=== PATIENT | female | born 1955 | race Caucasian/White ===

== ENCOUNTER 2016-12-02 12:41 | Inpatient (IN) | payer MEDICAID, OTHER ==
[~2016-12-02] VITALS: Ht 144.8 cm; Wt 98.0 kg
[~2016-12-02 12:41] MED LIST: ARIP15TA3 PO; CLON1 PO; GLIP5TAB3 PO; LEVO100T14 PO; METF500T PO; OMEP20 PO; OXCA150T3 PO; PIOG15TA13 PO; PRAV20TA PO; QUET300T2 PO; QUET50TA PO
[2016-12-02] MEDS ORDERED: GABA-529 PO (13:16)
[2016-12-02] MEDS ORDERED: LORA1TAB3 PO (13:16)
[2016-12-02] MEDS ORDERED: SITA50 PO (13:16)
[2016-12-02 13:20] LABS: BASOPHILS % (AUTO) 0.4 % (0.0-2.0); EOSINOPHILS % (AUTO) 0.8 % (1.0-6.0); HEMATOCRIT 36.9 % (36-46); HEMOGLOBIN 12.1 g/dL (12.0-16.0); LYMPHOCYTES # (AUTO) 2.4 K/uL (1.0-4.8); LYMPHOCYTES % (AUTO) 20.6 % (22.0-44.0); MEAN CORPUSCULAR HEMOGLOBIN 30.5 pg (26.0-34.0); MEAN CORPUSCULAR HGB CONC 32.7 G/dL (31.0-37.0); MEAN CORPUSCULAR VOLUME 93 fL (80-100); MONOCYTES # (AUTO) 0.7 K/uL (0.1-1.0); MONOCYTES % (AUTO) 6.1 % (2.0-9.0); NEUTROPHILS # (AUTO) 8.4 K/uL (1.8-7.7); NEUTROPHILS % (AUTO) 72.1 % (40.0-70.0); PLATELET COUNT (AUTO) 355 K/uL (150-450); RED BLOOD CELL COUNT(AUTO) 3.96 MIL/uL (4.00-5.20); RED CELL DISTRIBUTION WIDTH 14.6 % (11.5-14.5); WHITE BLOOD COUNT (AUTO) 11.7 K/uL (4.5-11.0)
[2016-12-02 13:38] LABS: ALANINE AMINOTRANSFERASE 51 U/L (12-78); ALBUMIN 4.2 g/dL (3.4-5.0); ANION GAP 13 mmol/L (8-16); ASPARTATE AMINOTRANSFERASE 24 U/L (15-37); BILIRUBIN,TOTAL 0.4 mg/dL (0.1-1.0); CARBON DIOXIDE 26 mmol/L (22-29); CHLORIDE 94 mmol/L (98-107); CREATININE 1.31 mg/dL (0.60-1.30); GLOMERULAR FILTR. RATE CALC 41 mL/min (>60); POTASSIUM 4.4 mmol/L (3.5-5.1); SODIUM SERUM 133 mmol/L (136-145); TOTAL PROTEIN, SERUM 8.5 g/dL (6.4-8.2); UREA NITROGEN, BLOOD 17 mg/dL (7-18)
[2016-12-02] MEDS ORDERED: INSULIN REGULAR, HUMAN 100 UNITS/ML SQ ONE (13:45)
[2016-12-02] MEDS ORDERED: SODIUM CHLORIDE 0.9% 1,000 ML IV ONE (13:45)
[2016-12-02] MEDS ORDERED: QUET25TA PO (13:46)
[2016-12-02 15:46] LABS: GLUCOSE COMMENT 1 Doctor Notified; GLUCOSE,POINT OF CARE 466 MG/DL (70-110)
[2016-12-02 17:22] LABS: GLUCOSE,POINT OF CARE 340 MG/DL (70-110)
[2016-12-02 19:25] VITALS: BP 128/80
[2016-12-02] MEDS ORDERED: GLUCAGON,HUMAN RECOMBINANT 1 MG VIAL IM PRN (19:45)
[2016-12-02 20:07] LABS: GLUCOSE,POINT OF CARE 214 MG/DL (70-110)
[2016-12-02] MEDS ORDERED: PNEUMOCOCCAL VACCINE POLYVALENT 0.5 ML VIAL [PPSV23] IM ONE (20:15)
[2016-12-02] MEDS: INSULIN ASPART 100 UNITS/ML SQ PRN (21:22)
[2016-12-02] MEDS: BENZOCAINE 10% 7 GM GEL TP PRN (22:38)
[2016-12-02 22:51] LABS: GLUCOSE COMMENT 1 Received Meds; GLUCOSE,POINT OF CARE 324 MG/DL (70-110)
[2016-12-03 00:14] VITALS: BP 145/93
[2016-12-03] MEDS: LORazepam 2 MG TABLET PO PRN ×2 (00:14→16:32)
[2016-12-03 06:16] LABS: GLUCOSE,POINT OF CARE 340 MG/DL (70-110)
[2016-12-03] MEDS: LEVOTHYROXINE SODIUM 100 MCG TABLET PO SCH (06:48)
[2016-12-03] MEDS: GlipiZIDE 5 MG TABLET PO SCH ×2 (06:48→19:37)
[2016-12-03] MEDS: INSULIN ASPART 100 UNITS/ML SQ PRN ×3 (06:50→21:13)
[2016-12-03] MEDS: OMEPRAZOLE 20 MG CAPSULE PO SCH (08:21)
[2016-12-03] MEDS: IBUPROFEN 400 MG TABLET PO PRN ×3 (08:21→23:47)
[2016-12-03] MEDS: BENZOCAINE 10% 7 GM GEL TP PRN ×2 (08:24→19:36)
[2016-12-03 08:29] VITALS: BP 121/73
[2016-12-03 11:27] LABS: GLUCOSE,POINT OF CARE 298 MG/DL (70-110)
[2016-12-03 16:00] VITALS: BP 158/105
[2016-12-03] MEDS ORDERED: AmLODIPine BESYLATE 5 MG TABLET PO ONE (16:30)
[2016-12-03 16:31] LABS: GLUCOSE COMMENT 1 Doctor Notified; GLUCOSE,POINT OF CARE 428 MG/DL (70-110)
[2016-12-03] MEDS ORDERED: INSULIN ASPART 100 UNITS/ML SQ ONE ×2 (16:45→18:45)
[2016-12-03] MEDS ORDERED: ACETAMINOPHEN 325 MG TABLET PO PRN (16:45)
[2016-12-03] MEDS: MetFORMIN HCL 500 MG TABLET PO SCH (17:04)
[2016-12-03 17:44] VITALS: BP 142/96
[2016-12-03 18:06] LABS: GLUCOSE COMMENT 1 Repeated; GLUCOSE,POINT OF CARE 410 MG/DL (70-110)
[2016-12-03] MEDS ORDERED: QUEtiapine FUMARATE 50 MG ER TABLET PO ONE (19:00)
[2016-12-03 21:01] LABS: GLUCOSE,POINT OF CARE 263 MG/DL (70-110)
[2016-12-03 23:43] VITALS: BP 121/78
[2016-12-03] MEDS: ZOLPIDEM TARTRATE 10 MG TABLET PO PRN (23:47)
[2016-12-04] MEDS: BENZOCAINE 10% 7 GM GEL TP PRN ×3 (01:52→16:38)
[2016-12-04 06:08] VITALS: BP 108/64
[2016-12-04] MEDS: ACETAMINOPHEN 325 MG TABLET PO PRN (06:11)
[2016-12-04] MEDS: INSULIN ASPART 100 UNITS/ML SQ PRN ×4 (06:38→21:32)
[2016-12-04] MEDS: MetFORMIN HCL 500 MG TABLET PO SCH ×2 (06:38→16:29)
[2016-12-04] MEDS: GlipiZIDE 5 MG TABLET PO SCH ×2 (06:38→16:30)
[2016-12-04] MEDS: LEVOTHYROXINE SODIUM 100 MCG TABLET PO SCH (06:39)
[2016-12-04 08:07] VITALS: BP 127/60
[2016-12-04] MEDS: OMEPRAZOLE 20 MG CAPSULE PO SCH (08:18)
[2016-12-04] MEDS: AmLODIPine BESYLATE 5 MG TABLET PO SCH (08:18)
[2016-12-04 08:59] LABS: HEMOGLOBIN A1C 10.2 % (4.5-6.2)
[2016-12-04] MEDS ORDERED: QUEtiapine FUMARATE 300 MG ER TABLET PO ONE (09:00)
[2016-12-04 09:34] LABS: THYROID STIMULATING HORMONE 4.87 uIU/mL (0.36-3.74)
[2016-12-04 10:37] VITALS: BP 116/63
[2016-12-04] MEDS: IBUPROFEN 400 MG TABLET PO PRN ×2 (10:37→18:44)
[2016-12-04 11:06] LABS: GLUCOSE,POINT OF CARE 323 MG/DL (70-110)
[2016-12-04 11:06] LABS: GLUCOSE COMMENT 1 Received Meds; GLUCOSE,POINT OF CARE 365 MG/DL (70-110)
[2016-12-04 16:16] LABS: GLUCOSE,POINT OF CARE 271 MG/DL (70-110)
[2016-12-04 16:17] VITALS: BP 124/61
[2016-12-04 20:11] LABS: GLUCOSE,POINT OF CARE 335 MG/DL (70-110)
[2016-12-04] MEDS: LORazepam 2 MG TABLET PO PRN (20:50)
[2016-12-05 00:06] VITALS: BP 115/59
[2016-12-05] MEDS: BENZOCAINE 10% 7 GM GEL TP PRN ×3 (00:08→19:14)
[2016-12-05] MEDS: ZOLPIDEM TARTRATE 10 MG TABLET PO PRN (00:09)
[2016-12-05] MEDS: IBUPROFEN 400 MG TABLET PO PRN ×2 (01:54→14:16)
[2016-12-05 01:55] VITALS: BP 117/72
[2016-12-05] MEDS: LORazepam 2 MG TABLET PO PRN ×3 (03:12→20:47)
[2016-12-05 06:10] VITALS: BP 115/68
[2016-12-05] MEDS: LEVOTHYROXINE SODIUM 100 MCG TABLET PO SCH (06:13)
[2016-12-05 06:15] LABS: GLUCOSE,POINT OF CARE 244 MG/DL (70-110)
[2016-12-05] MEDS: GlipiZIDE 5 MG TABLET PO SCH ×2 (06:54→16:34)
[2016-12-05] MEDS: INSULIN ASPART 100 UNITS/ML SQ PRN ×4 (06:58→20:48)
[2016-12-05] MEDS: MetFORMIN HCL 500 MG TABLET PO SCH ×2 (06:59→16:34)
[2016-12-05 08:11] VITALS: BP 119/79
[2016-12-05] MEDS: ACETAMINOPHEN 325 MG TABLET PO PRN (08:22)
[2016-12-05] MEDS: AmLODIPine BESYLATE 5 MG TABLET PO SCH (08:23)
[2016-12-05] MEDS: OMEPRAZOLE 20 MG CAPSULE PO SCH (08:24)
[2016-12-05] MEDS ORDERED: QUEtiapine FUMARATE 300 MG ER TABLET PO SCH (09:00)
[2016-12-05] MEDS ORDERED: QUEtiapine FUMARATE 200 MG ER TABLET PO SCH (09:00)
[2016-12-05 11:26] LABS: GLUCOSE,POINT OF CARE 225 MG/DL (70-110)
[2016-12-05 14:16] VITALS: BP 122/60
[2016-12-05 16:34] VITALS: BP 119/73
[2016-12-05 20:21] LABS: GLUCOSE,POINT OF CARE 254 MG/DL (70-110)
[2016-12-05 20:21] LABS: GLUCOSE,POINT OF CARE 208 MG/DL (70-110)
[2016-12-05] MEDS: HALOPERIDOL 5 MG TABLET PO PRN (20:47)
[2016-12-06] VITALS (7 sets, daily range): BP systolic 118–128; BP diastolic 62–78
[2016-12-06] MEDS: IBUPROFEN 400 MG TABLET PO PRN ×3 (00:51→20:42)
[2016-12-06] MEDS: ACETAMINOPHEN 325 MG TABLET PO PRN (05:02)
[2016-12-06 06:11] LABS: GLUCOSE,POINT OF CARE 210 MG/DL (70-110)
[2016-12-06] MEDS: LEVOTHYROXINE SODIUM 100 MCG TABLET PO SCH (06:30)
[2016-12-06] MEDS: MetFORMIN HCL 500 MG TABLET PO SCH ×2 (06:30→16:21)
[2016-12-06] MEDS: GlipiZIDE 5 MG TABLET PO SCH ×2 (06:30→16:21)
[2016-12-06] MEDS: INSULIN ASPART 100 UNITS/ML SQ PRN ×4 (06:48→20:41)
[2016-12-06] MEDS: OMEPRAZOLE 20 MG CAPSULE PO SCH (08:06)
[2016-12-06] MEDS: AmLODIPine BESYLATE 5 MG TABLET PO SCH (08:07)
[2016-12-06] MEDS: LORazepam 2 MG TABLET PO PRN ×2 (08:07→13:48)
[2016-12-06] MEDS ORDERED: QUEtiapine FUMARATE 300 MG ER TABLET PO SCH ×2 (09:00→21:00)
[2016-12-06 11:11] LABS: GLUCOSE,POINT OF CARE 167 MG/DL (70-110)
[2016-12-06] MEDS: BENZOCAINE 10% 7 GM GEL TP PRN ×2 (13:04→21:20)
[2016-12-06] MEDS ORDERED: BENZOCAINE 10% 7 GM GEL TP PRN (14:15)
[2016-12-06] MEDS: ACETAMINOPHEN 500 MG TABLET PO PRN (14:49)
[2016-12-06] MEDS: HALOPERIDOL 5 MG TABLET PO PRN (16:21)
[2016-12-06 19:11] LABS: GLUCOSE COMMENT 1 Received Meds; GLUCOSE,POINT OF CARE 248 MG/DL (70-110)
[2016-12-06 21:30] LABS: GLUCOSE COMMENT 1 Received Meds; GLUCOSE,POINT OF CARE 196 MG/DL (70-110)
[2016-12-07 00:13] VITALS: BP 112/63
[2016-12-07 06:10] LABS: GLUCOSE,POINT OF CARE 314 MG/DL (70-110)
[2016-12-07] MEDS: LEVOTHYROXINE SODIUM 100 MCG TABLET PO SCH (06:50)
[2016-12-07] MEDS: MetFORMIN HCL 500 MG TABLET PO SCH ×2 (06:50→17:10)
[2016-12-07] MEDS: GlipiZIDE 5 MG TABLET PO SCH ×2 (06:50→16:34)
[2016-12-07] MEDS: INSULIN ASPART 100 UNITS/ML SQ PRN ×4 (06:52→20:51)
[2016-12-07] MEDS: OMEPRAZOLE 20 MG CAPSULE PO SCH (08:25)
[2016-12-07] MEDS: AmLODIPine BESYLATE 5 MG TABLET PO SCH (08:25)
[2016-12-07] MEDS: LORazepam 2 MG TABLET PO PRN ×2 (08:36→17:37)
[2016-12-07 08:37] VITALS: BP 124/64
[2016-12-07] MEDS: ACETAMINOPHEN 500 MG TABLET PO PRN (08:37)
[2016-12-07] MEDS: HALOPERIDOL 5 MG TABLET PO PRN ×2 (09:04→16:46)
[2016-12-07] MEDS: DOCOSANOL 10% 2 GM CREAM TP PRN (09:32)
[2016-12-07 11:16] VITALS: BP 120/66
[2016-12-07] MEDS: IBUPROFEN 400 MG TABLET PO PRN (11:16)
[2016-12-07 11:31] LABS: GLUCOSE,POINT OF CARE 189 MG/DL (70-110)
[2016-12-07 16:14] VITALS: BP 112/67
[2016-12-07] MEDS: DIVALPROEX SODIUM 250 MG ER TABLET PO SCH (16:37)
[2016-12-07 16:51] LABS: GLUCOSE,POINT OF CARE 265 MG/DL (70-110)
[2016-12-07] MEDS: BENZOCAINE 10% 7 GM GEL TP PRN (19:43)
[2016-12-07] MEDS: QUEtiapine FUMARATE 200 MG ER TABLET PO SCH (20:08)
[2016-12-07 22:06] LABS: GLUCOSE,POINT OF CARE 218 MG/DL (70-110)
[2016-12-08 06:20] LABS: GLUCOSE,POINT OF CARE 316 MG/DL (70-110)
[2016-12-08] MEDS: GlipiZIDE 5 MG TABLET PO SCH ×2 (06:30→16:25)
[2016-12-08] MEDS: LEVOTHYROXINE SODIUM 100 MCG TABLET PO SCH (06:30)
[2016-12-08] MEDS: MetFORMIN HCL 500 MG TABLET PO SCH ×2 (06:31→16:57)
[2016-12-08 06:48] VITALS: BP 129/78
[2016-12-08] MEDS: HALOPERIDOL 5 MG TABLET PO PRN ×3 (06:52→16:25)
[2016-12-08] MEDS: LORazepam 2 MG TABLET PO PRN ×3 (06:52→17:03)
[2016-12-08] MEDS: INSULIN ASPART 100 UNITS/ML SQ PRN ×4 (06:57→20:17)
[2016-12-08 08:42] VITALS: BP 148/84
[2016-12-08] MEDS: DIVALPROEX SODIUM 250 MG ER TABLET PO SCH ×2 (08:53→16:25)
[2016-12-08] MEDS: LORazepam 0.5 MG TABLET PO SCH ×2 (08:53→16:25)
[2016-12-08] MEDS: OMEPRAZOLE 20 MG CAPSULE PO SCH (08:53)
[2016-12-08] MEDS: AmLODIPine BESYLATE 5 MG TABLET PO SCH (08:55)
[2016-12-08] MEDS: ACETAMINOPHEN 500 MG TABLET PO PRN (09:52)
[2016-12-08 13:05] LABS: GLUCOSE,POINT OF CARE 206 MG/DL (70-110)
[2016-12-08 16:03] VITALS: BP 109/71
[2016-12-08 16:30] LABS: GLUCOSE,POINT OF CARE 297 MG/DL (70-110)
[2016-12-08 18:13] VITALS: BP 110/72
[2016-12-08] MEDS: IBUPROFEN 400 MG TABLET PO PRN (18:13)
[2016-12-08] MEDS: QUEtiapine FUMARATE 200 MG ER TABLET PO SCH (20:16)
[2016-12-08 20:21] LABS: GLUCOSE,POINT OF CARE 208 MG/DL (70-110)
[2016-12-08] MEDS: ZOLPIDEM TARTRATE 10 MG TABLET PO PRN (21:12)
[2016-12-09 06:16] LABS: GLUCOSE,POINT OF CARE 212 MG/DL (70-110)
[2016-12-09] MEDS: MetFORMIN HCL 500 MG TABLET PO SCH ×2 (06:19→16:40)
[2016-12-09] MEDS: GlipiZIDE 5 MG TABLET PO SCH ×2 (06:19→16:40)
[2016-12-09] MEDS: LEVOTHYROXINE SODIUM 100 MCG TABLET PO SCH (06:19)
[2016-12-09] MEDS: INSULIN ASPART 100 UNITS/ML SQ PRN ×4 (06:23→20:36)
[2016-12-09] MEDS: LORazepam 2 MG TABLET PO PRN ×2 (06:46→17:58)
[2016-12-09] MEDS: HALOPERIDOL 5 MG TABLET PO PRN ×2 (06:46→16:40)
[2016-12-09 07:19] VITALS: BP 135/70
[2016-12-09 08:07] VITALS: BP 129/50
[2016-12-09] MEDS: LORazepam 0.5 MG TABLET PO SCH ×2 (09:13→16:40)
[2016-12-09] MEDS: AmLODIPine BESYLATE 5 MG TABLET PO SCH (09:14)
[2016-12-09] MEDS: DIVALPROEX SODIUM 250 MG ER TABLET PO SCH ×2 (09:14→16:40)
[2016-12-09] MEDS: OMEPRAZOLE 20 MG CAPSULE PO SCH (09:14)
[2016-12-09] MEDS: ACETAMINOPHEN 500 MG TABLET PO PRN (09:16)
[2016-12-09 11:56] LABS: GLUCOSE,POINT OF CARE 162 MG/DL (70-110)
[2016-12-09 16:00] VITALS: BP 117/68
[2016-12-09 16:41] LABS: GLUCOSE,POINT OF CARE 297 MG/DL (70-110)
[2016-12-09] MEDS: DOCOSANOL 10% 2 GM CREAM TP PRN (18:00)
[2016-12-09 18:46] VITALS: BP 122/72
[2016-12-09] MEDS: IBUPROFEN 400 MG TABLET PO PRN (18:46)
[2016-12-09 20:35] LABS: GLUCOSE,POINT OF CARE 148 MG/DL (70-110)
[2016-12-09] MEDS: QUEtiapine FUMARATE 200 MG ER TABLET PO SCH (20:37)
[2016-12-09] MEDS: ZOLPIDEM TARTRATE 10 MG TABLET PO PRN (21:07)
[2016-12-10 06:21] LABS: GLUCOSE,POINT OF CARE 225 MG/DL (70-110)
[2016-12-10] MEDS: LEVOTHYROXINE SODIUM 100 MCG TABLET PO SCH (06:31)
[2016-12-10] MEDS: GlipiZIDE 5 MG TABLET PO SCH ×2 (06:31→16:38)
[2016-12-10] MEDS: MetFORMIN HCL 500 MG TABLET PO SCH ×2 (06:31→16:55)
[2016-12-10] MEDS: INSULIN ASPART 100 UNITS/ML SQ PRN ×4 (06:34→20:40)
[2016-12-10] MEDS: OMEPRAZOLE 20 MG CAPSULE PO SCH (08:24)
[2016-12-10] MEDS: LORazepam 0.5 MG TABLET PO SCH ×2 (08:24→16:38)
[2016-12-10] MEDS: DIVALPROEX SODIUM 250 MG ER TABLET PO SCH (08:24)
[2016-12-10] MEDS: AmLODIPine BESYLATE 5 MG TABLET PO SCH (08:24)
[2016-12-10 08:59] VITALS: BP 137/68
[2016-12-10 11:26] LABS: GLUCOSE,POINT OF CARE 173 MG/DL (70-110)
[2016-12-10] MEDS: ACETAMINOPHEN 500 MG TABLET PO PRN ×2 (14:07→22:13)
[2016-12-10] MEDS: DOCOSANOL 10% 2 GM CREAM TP PRN (14:08)
[2016-12-10 16:02] VITALS: BP 138/74
[2016-12-10] MEDS: BENZOCAINE 10% 7 GM GEL TP PRN (16:13)
[2016-12-10 16:21] LABS: GLUCOSE,POINT OF CARE 213 MG/DL (70-110)
[2016-12-10] MEDS: DIVALPROEX SODIUM 500 MG ER TABLET PO SCH (16:38)
[2016-12-10] MEDS: LORazepam 2 MG TABLET PO PRN ×2 (18:41→23:57)
[2016-12-10] MEDS: HALOPERIDOL 5 MG TABLET PO PRN ×2 (19:32→23:57)
[2016-12-10] MEDS: QUEtiapine FUMARATE 200 MG ER TABLET PO SCH (20:28)
[2016-12-10 20:41] LABS: GLUCOSE COMMENT 1 Received Meds; GLUCOSE,POINT OF CARE 177 MG/DL (70-110)
[2016-12-10 22:00] VITALS: BP 135/76
[2016-12-10] MEDS: IBUPROFEN 400 MG TABLET PO PRN (23:58)
[2016-12-11 00:02] VITALS: BP 128/71
[2016-12-11] MEDS: GlipiZIDE 5 MG TABLET PO SCH ×2 (06:59→17:18)
[2016-12-11] MEDS: MetFORMIN HCL 500 MG TABLET PO SCH ×2 (07:00→16:26)
[2016-12-11] MEDS: ACETAMINOPHEN 500 MG TABLET PO PRN (07:00)
[2016-12-11] MEDS: LEVOTHYROXINE SODIUM 100 MCG TABLET PO SCH (07:00)
[2016-12-11 07:01] LABS: GLUCOSE,POINT OF CARE 194 MG/DL (70-110)
[2016-12-11] MEDS: INSULIN ASPART 100 UNITS/ML SQ PRN ×3 (07:09→21:45)
[2016-12-11] MEDS: LORazepam 0.5 MG TABLET PO SCH ×2 (08:09→18:32)
[2016-12-11] MEDS: AmLODIPine BESYLATE 5 MG TABLET PO SCH (08:10)
[2016-12-11] MEDS: DIVALPROEX SODIUM 500 MG ER TABLET PO SCH ×2 (08:10→16:26)
[2016-12-11] MEDS: OMEPRAZOLE 20 MG CAPSULE PO SCH (08:10)
[2016-12-11] MEDS: HALOPERIDOL 5 MG TABLET PO PRN (08:34)
[2016-12-11] MEDS: IBUPROFEN 400 MG TABLET PO PRN (09:31)
[2016-12-11] MEDS: BENZOCAINE 10% 7 GM GEL TP PRN (09:53)
[2016-12-11 12:11] LABS: GLUCOSE,POINT OF CARE 183 MG/DL (70-110)
[2016-12-11] MEDS: QUEtiapine FUMARATE 200 MG ER TABLET PO SCH ×2 (14:17→16:27)
[2016-12-11 16:11] VITALS: BP 108/62
[2016-12-11 18:30] LABS: GLUCOSE,POINT OF CARE 222 MG/DL (70-110)
[2016-12-11 20:26] LABS: GLUCOSE,POINT OF CARE 183 MG/DL (70-110)
[2016-12-11 21:24] VITALS: BP 111/64
[2016-12-11] MEDS: ACETAMINOPHEN 325 MG TABLET PO PRN (21:24)
[2016-12-11 22:24] VITALS: BP 109/68
[2016-12-12 01:24] VITALS: BP 140/82
[2016-12-12] MEDS: ZOLPIDEM TARTRATE 10 MG TABLET PO PRN ×2 (01:25→21:02)
[2016-12-12] MEDS: IBUPROFEN 400 MG TABLET PO PRN ×3 (01:26→19:27)
[2016-12-12] MEDS: BENZOCAINE 10% 7 GM GEL TP PRN ×2 (01:55→17:55)
[2016-12-12] MEDS: LEVOTHYROXINE SODIUM 100 MCG TABLET PO SCH (05:48)
[2016-12-12] MEDS: GlipiZIDE 5 MG TABLET PO SCH ×2 (05:48→16:25)
[2016-12-12 06:15] LABS: GLUCOSE,POINT OF CARE 190 MG/DL (70-110)
[2016-12-12] MEDS: MetFORMIN HCL 500 MG TABLET PO SCH ×2 (06:15→16:58)
[2016-12-12] MEDS: INSULIN ASPART 100 UNITS/ML SQ PRN ×4 (06:41→20:10)
[2016-12-12 08:42] VITALS: BP 133/67
[2016-12-12] MEDS: QUEtiapine FUMARATE 200 MG ER TABLET PO SCH ×2 (08:59→16:30)
[2016-12-12] MEDS: AmLODIPine BESYLATE 5 MG TABLET PO SCH (08:59)
[2016-12-12] MEDS: DIVALPROEX SODIUM 500 MG ER TABLET PO SCH ×2 (08:59→16:30)
[2016-12-12] MEDS: OMEPRAZOLE 20 MG CAPSULE PO SCH (09:00)
[2016-12-12] MEDS: HALOPERIDOL 5 MG TABLET PO PRN ×2 (09:00→16:30)
[2016-12-12] MEDS: LORazepam 0.5 MG TABLET PO SCH ×2 (09:00→16:30)
[2016-12-12] MEDS: LORazepam 2 MG TABLET PO PRN ×2 (10:00→17:54)
[2016-12-12 11:33] LABS: GLUCOSE COMMENT 1 Received Meds; GLUCOSE,POINT OF CARE 157 MG/DL (70-110)
[2016-12-12 16:07] VITALS: BP 136/71
[2016-12-12 16:31] LABS: GLUCOSE,POINT OF CARE 169 MG/DL (70-110)
[2016-12-12] MEDS: DOCOSANOL 10% 2 GM CREAM TP PRN (16:59)
[2016-12-12 19:27] VITALS: BP 134/77
[2016-12-12 20:11] LABS: GLUCOSE,POINT OF CARE 232 MG/DL (70-110)
[2016-12-13] MEDS: ACETAMINOPHEN 500 MG TABLET PO PRN (01:52)
[2016-12-13 01:54] VITALS: BP 137/75
[2016-12-13] MEDS: DOCOSANOL 10% 2 GM CREAM TP PRN ×2 (02:38→10:07)
[2016-12-13] MEDS: BENZOCAINE 10% 7 GM GEL TP PRN ×3 (02:38→21:55)
[2016-12-13 06:06] LABS: GLUCOSE,POINT OF CARE 199 MG/DL (70-110)
[2016-12-13] MEDS: LEVOTHYROXINE SODIUM 100 MCG TABLET PO SCH (06:50)
[2016-12-13] MEDS: MetFORMIN HCL 500 MG TABLET PO SCH ×2 (06:50→16:59)
[2016-12-13] MEDS: GlipiZIDE 5 MG TABLET PO SCH ×2 (06:50→16:15)
[2016-12-13] MEDS: INSULIN ASPART 100 UNITS/ML SQ PRN ×4 (06:56→20:22)
[2016-12-13 08:03] VITALS: BP 136/70
[2016-12-13] MEDS: QUEtiapine FUMARATE 200 MG ER TABLET PO SCH ×2 (08:27→16:07)
[2016-12-13] MEDS: LORazepam 0.5 MG TABLET PO SCH ×2 (08:27→17:11)
[2016-12-13] MEDS: DIVALPROEX SODIUM 500 MG ER TABLET PO SCH ×2 (08:27→16:08)
[2016-12-13] MEDS: OMEPRAZOLE 20 MG CAPSULE PO SCH (08:28)
[2016-12-13] MEDS: AmLODIPine BESYLATE 5 MG TABLET PO SCH (08:28)
[2016-12-13 09:57] LABS: BASOPHILS % (AUTO) 0.5 % (0.0-2.0); EOSINOPHILS % (AUTO) 3.5 % (1.0-6.0); HEMATOCRIT 35.4 % (36-46); HEMOGLOBIN 11.4 g/dL (12.0-16.0); LYMPHOCYTES # (AUTO) 4.1 K/uL (1.0-4.8); MEAN CORPUSCULAR HGB CONC 32.2 G/dL (31.0-37.0); MEAN CORPUSCULAR VOLUME 93 fL (80-100); MONOCYTES # (AUTO) 0.5 K/uL (0.1-1.0); MONOCYTES % (AUTO) 5.7 % (2.0-9.0); NEUTROPHILS # (AUTO) 3.8 K/uL (1.8-7.7); NEUTROPHILS % (AUTO) 43.3 % (40.0-70.0); PLATELET COUNT (AUTO) 359 K/uL (150-450); RED BLOOD CELL COUNT(AUTO) 3.81 MIL/uL (4.00-5.20); RED CELL DISTRIBUTION WIDTH 14.7 % (11.5-14.5); WHITE BLOOD COUNT (AUTO) 8.8 K/uL (4.5-11.0)
[2016-12-13 10:09] LABS: ALANINE AMINOTRANSFERASE 48 U/L (12-78); ALBUMIN 3.7 g/dL (3.4-5.0); ANION GAP 15 mmol/L (8-16); ASPARTATE AMINOTRANSFERASE 24 U/L (15-37); BILIRUBIN,TOTAL 0.2 mg/dL (0.1-1.0); CARBON DIOXIDE 21 mmol/L (22-29); CHLORIDE 95 mmol/L (98-107); CREATININE 0.89 mg/dL (0.60-1.30); GLOMERULAR FILTR. RATE CALC > 60 mL/min (>60); POTASSIUM 4.1 mmol/L (3.5-5.1); SODIUM SERUM 131 mmol/L (136-145); TOTAL PROTEIN, SERUM 7.8 g/dL (6.4-8.2); UREA NITROGEN, BLOOD 20 mg/dL (7-18); VALPROIC ACID 88 mcg/mL (50-100)
[2016-12-13] MEDS: IBUPROFEN 400 MG TABLET PO PRN ×2 (10:14→18:14)
[2016-12-13] MEDS: LORazepam 2 MG TABLET PO PRN (10:14)
[2016-12-13 12:01] LABS: GLUCOSE,POINT OF CARE 268 MG/DL (70-110)
[2016-12-13 16:04] VITALS: BP 132/70
[2016-12-13 16:31] LABS: GLUCOSE,POINT OF CARE 227 MG/DL (70-110)
[2016-12-13 18:12] VITALS: BP 130/69
[2016-12-13 20:26] LABS: GLUCOSE,POINT OF CARE 203 MG/DL (70-110)
[2016-12-13] MEDS: ZOLPIDEM TARTRATE 10 MG TABLET PO PRN (22:41)
[2016-12-14] VITALS: BP 118/60
[2016-12-14] MEDS: ACETAMINOPHEN 500 MG TABLET PO PRN (00:07)
[2016-12-14 00:43] VITALS: BP 118/60
[2016-12-14] MEDS: IBUPROFEN 400 MG TABLET PO PRN (04:43)
[2016-12-14] MEDS: BENZOCAINE 10% 7 GM GEL TP PRN (04:44)
[2016-12-14 06:21] LABS: GLUCOSE,POINT OF CARE 249 MG/DL (70-110)
[2016-12-14] MEDS: LEVOTHYROXINE SODIUM 100 MCG TABLET PO SCH (06:23)
[2016-12-14] MEDS: MetFORMIN HCL 500 MG TABLET PO SCH (06:24)
[2016-12-14] MEDS: GlipiZIDE 5 MG TABLET PO SCH (06:24)
[2016-12-14] MEDS: INSULIN ASPART 100 UNITS/ML SQ PRN ×2 (06:28→12:18)
[2016-12-14 08:25] VITALS: BP 136/62
[2016-12-14] MEDS: OMEPRAZOLE 20 MG CAPSULE PO SCH (09:39)
[2016-12-14] MEDS: AmLODIPine BESYLATE 5 MG TABLET PO SCH (09:39)
[2016-12-14] MEDS: DIVALPROEX SODIUM 250 MG ER TABLET PO SCH ×2 (09:40→17:00)
[2016-12-14] MEDS: LORazepam 0.5 MG TABLET PO SCH ×2 (09:40→17:00)
[2016-12-14] MEDS: QUEtiapine FUMARATE 200 MG ER TABLET PO SCH ×2 (09:41→17:00)
[2016-12-14 11:47] LABS: GLUCOSE,POINT OF CARE 238 MG/DL (70-110)
[2016-12-15] MEDS: LEVOTHYROXINE SODIUM 100 MCG TABLET PO SCH (06:30)
[2016-12-15] MEDS: GlipiZIDE 5 MG TABLET PO SCH (06:30)
[2016-12-15] MEDS: MetFORMIN HCL 500 MG TABLET PO SCH (07:00)
[2016-12-15] MEDS: LORazepam 0.5 MG TABLET PO SCH ×2 (09:00→17:00)
[2016-12-15] MEDS: DIVALPROEX SODIUM 250 MG ER TABLET PO SCH ×2 (09:00→17:00)
[2016-12-15] MEDS: OMEPRAZOLE 20 MG CAPSULE PO SCH (09:00)
[2016-12-15] MEDS: AmLODIPine BESYLATE 5 MG TABLET PO SCH (09:00)
[2016-12-15] MEDS: QUEtiapine FUMARATE 200 MG ER TABLET PO SCH ×2 (09:00→17:00)
[2016-12-15 23:31] LABS: GLUCOSE COMMENT 1 Received Meds; GLUCOSE,POINT OF CARE 192 MG/DL (70-110)
[2016-12-15 23:31] LABS: GLUCOSE,POINT OF CARE 288 MG/DL (70-110)
[2016-12-15 23:36] LABS: GLUCOSE,POINT OF CARE 277 MG/DL (70-110)
[2016-12-15 23:36] LABS: GLUCOSE,POINT OF CARE 289 MG/DL (70-110)
[2016-12-15 23:36] LABS: GLUCOSE,POINT OF CARE 214 MG/DL (70-110)
[2016-12-16] MEDS: ACETAMINOPHEN 500 MG TABLET PO PRN ×2 (00:49→09:37)
[2016-12-16 01:50] VITALS: BP 138/98
[2016-12-16 06:26] LABS: GLUCOSE,POINT OF CARE 246 MG/DL (70-110)
[2016-12-16] MEDS: MetFORMIN HCL 500 MG TABLET PO SCH ×2 (06:27→16:54)
[2016-12-16] MEDS: GlipiZIDE 5 MG TABLET PO SCH ×2 (06:28→16:25)
[2016-12-16] MEDS: LEVOTHYROXINE SODIUM 100 MCG TABLET PO SCH (06:28)
[2016-12-16] MEDS: INSULIN ASPART 100 UNITS/ML SQ PRN ×4 (06:33→20:14)
[2016-12-16] MEDS: IBUPROFEN 400 MG TABLET PO PRN ×2 (06:36→16:25)
[2016-12-16 09:00] VITALS: BP 147/79
[2016-12-16] MEDS: AmLODIPine BESYLATE 5 MG TABLET PO SCH (09:24)
[2016-12-16] MEDS: LORazepam 0.5 MG TABLET PO SCH ×2 (09:24→17:25)
[2016-12-16] MEDS: OMEPRAZOLE 20 MG CAPSULE PO SCH (09:24)
[2016-12-16] MEDS: DIVALPROEX SODIUM 250 MG ER TABLET PO SCH ×2 (09:24→16:24)
[2016-12-16] MEDS: QUEtiapine FUMARATE 200 MG ER TABLET PO SCH ×2 (09:24→16:24)
[2016-12-16 11:46] LABS: GLUCOSE,POINT OF CARE 224 MG/DL (70-110)
[2016-12-16] MEDS: DOCOSANOL 10% 2 GM CREAM TP PRN (12:58)
[2016-12-16] MEDS: BENZOCAINE 10% 7 GM GEL TP PRN ×2 (12:58→19:29)
[2016-12-16 16:09] VITALS: BP 130/89
[2016-12-16 16:51] LABS: GLUCOSE,POINT OF CARE 303 MG/DL (70-110)
[2016-12-16 20:17] LABS: GLUCOSE,POINT OF CARE 235 MG/DL (70-110)
[2016-12-16] MEDS: ZOLPIDEM TARTRATE 10 MG TABLET PO PRN (21:22)
[2016-12-17] MEDS: IBUPROFEN 400 MG TABLET PO PRN ×2 (00:16→16:35)
[2016-12-17 00:18] VITALS: BP 139/85
[2016-12-17] MEDS: ACETAMINOPHEN 500 MG TABLET PO PRN (03:50)
[2016-12-17 06:01] LABS: GLUCOSE,POINT OF CARE 250 MG/DL (70-110)
[2016-12-17] MEDS: MetFORMIN HCL 500 MG TABLET PO SCH ×3 (06:04→16:34)
[2016-12-17] MEDS: LEVOTHYROXINE SODIUM 100 MCG TABLET PO SCH (06:04)
[2016-12-17] MEDS: GlipiZIDE 5 MG TABLET PO SCH ×2 (06:04→16:09)
[2016-12-17] MEDS: INSULIN ASPART 100 UNITS/ML SQ PRN ×3 (06:13→16:20)
[2016-12-17 08:30] VITALS: BP 128/74
[2016-12-17] MEDS: DIVALPROEX SODIUM 250 MG ER TABLET PO SCH ×2 (08:59→16:08)
[2016-12-17] MEDS: LORazepam 0.5 MG TABLET PO SCH ×2 (09:00→17:00)
[2016-12-17] MEDS: QUEtiapine FUMARATE 200 MG ER TABLET PO SCH ×2 (09:00→16:09)
[2016-12-17] MEDS: OMEPRAZOLE 20 MG CAPSULE PO SCH (09:00)
[2016-12-17] MEDS: AmLODIPine BESYLATE 5 MG TABLET PO SCH (09:01)
[2016-12-17] MEDS: BENZOCAINE 10% 7 GM GEL TP PRN ×2 (10:54→17:25)
[2016-12-17 11:16] LABS: GLUCOSE COMMENT 1 Received Meds; GLUCOSE,POINT OF CARE 219 MG/DL (70-110)
[2016-12-17 16:00] VITALS: BP 138/82
[2016-12-17 16:31] LABS: GLUCOSE,POINT OF CARE 322 MG/DL (70-110)
[2016-12-18] MEDS: IBUPROFEN 400 MG TABLET PO PRN (00:38)
[2016-12-18] MEDS: BENZOCAINE 10% 7 GM GEL TP PRN (00:38)
[2016-12-18] MEDS: DOCOSANOL 10% 2 GM CREAM TP PRN (00:39)
[2016-12-18 05:50] VITALS: BP 150/70
[2016-12-18 05:51] LABS: GLUCOSE,POINT OF CARE 233 MG/DL (70-110)
[2016-12-18] MEDS: ACETAMINOPHEN 500 MG TABLET PO PRN (05:54)
[2016-12-18] MEDS: INSULIN ASPART 100 UNITS/ML SQ PRN ×4 (06:06→21:08)
[2016-12-18] MEDS: LEVOTHYROXINE SODIUM 100 MCG TABLET PO SCH (06:15)
[2016-12-18] MEDS: MetFORMIN HCL 500 MG TABLET PO SCH ×2 (06:15→16:51)
[2016-12-18] MEDS: GlipiZIDE 5 MG TABLET PO SCH ×2 (06:15→16:52)
[2016-12-18] MEDS: LORazepam 0.5 MG TABLET PO SCH ×2 (08:39→16:52)
[2016-12-18] MEDS: OMEPRAZOLE 20 MG CAPSULE PO SCH (08:39)
[2016-12-18] MEDS: DIVALPROEX SODIUM 250 MG ER TABLET PO SCH ×2 (08:39→16:52)
[2016-12-18] MEDS: QUEtiapine FUMARATE 200 MG ER TABLET PO SCH ×2 (08:39→16:51)
[2016-12-18] MEDS: AmLODIPine BESYLATE 5 MG TABLET PO SCH (08:39)
[2016-12-18 09:04] VITALS: BP 142/90
[2016-12-18 11:46] LABS: GLUCOSE,POINT OF CARE 328 MG/DL (70-110)
[2016-12-18 16:11] VITALS: BP 139/74
[2016-12-18 17:41] LABS: GLUCOSE COMMENT 1 Received Meds; GLUCOSE,POINT OF CARE 258 MG/DL (70-110)
[2016-12-18] MEDS: ZOLPIDEM TARTRATE 10 MG TABLET PO PRN (20:58)
[2016-12-18 21:31] LABS: GLUCOSE COMMENT 1 Received Meds; GLUCOSE,POINT OF CARE 221 MG/DL (70-110)
[2016-12-19] MEDS: BENZOCAINE 10% 7 GM GEL TP PRN (01:10)
[2016-12-19 06:09] VITALS: BP 135/60
[2016-12-19 06:25] LABS: GLUCOSE COMMENT 1 Received Meds; GLUCOSE,POINT OF CARE 240 MG/DL (70-110)
[2016-12-19] MEDS: MetFORMIN HCL 500 MG TABLET PO SCH (06:28)
[2016-12-19] MEDS: LEVOTHYROXINE SODIUM 100 MCG TABLET PO SCH (06:28)
[2016-12-19] MEDS: GlipiZIDE 5 MG TABLET PO SCH (06:28)
[2016-12-19] MEDS: IBUPROFEN 400 MG TABLET PO PRN (06:28)
[2016-12-19] MEDS: INSULIN ASPART 100 UNITS/ML SQ PRN ×2 (06:40→11:41)
[2016-12-19] MEDS: QUEtiapine FUMARATE 200 MG ER TABLET PO SCH (08:25)
[2016-12-19] MEDS: OMEPRAZOLE 20 MG CAPSULE PO SCH (08:26)
[2016-12-19] MEDS: AmLODIPine BESYLATE 5 MG TABLET PO SCH (08:26)
[2016-12-19] MEDS: DIVALPROEX SODIUM 250 MG ER TABLET PO SCH (08:26)
[2016-12-19] MEDS: LORazepam 0.5 MG TABLET PO SCH (08:27)
[2016-12-19 08:35] VITALS: BP 146/75
[2016-12-19] MEDS ORDERED: LITHIUM CARBONATE 300 MG CAPSULE PO SCH (09:00)
[2016-12-19] MEDS ORDERED: LORA0.5T83 PO (11:39)
[2016-12-19] MEDS ORDERED: DIVA250T45 PO (11:41)
[2016-12-19] MEDS ORDERED: QUET400T3 PO (11:42)
[2016-12-19] MEDS ORDERED: AMLO2.5T PO (11:45)
[2016-12-19 12:01] LABS: GLUCOSE,POINT OF CARE 207 MG/DL (70-110)
== END 2016-12-19 13:30 | disposition home or self-care (01) | DRG 753 ==
LOC: EMS 12:43 → B2S 18:04 → B3A 12-07 20:35
PROVIDERS: ADMIT Psychiatry & Neurology Psychiatry; ATTEND Psychiatry & Neurology Psychiatry
DX: F31.2 Bipolar disorder, current episode manic severe with psychotic features (principal); E11.649 Type 2 diabetes mellitus with hypoglycemia without coma; E11.65 Type 2 diabetes mellitus with hyperglycemia; E03.9 Hypothyroidism, unspecified; D72.829 Elevated white blood cell count, unspecified; E66.9 Obesity, unspecified; E78.5 Hyperlipidemia, unspecified; I10 Essential (primary) hypertension; M19.90 Unspecified osteoarthritis, unspecified site; F41.9 Anxiety disorder, unspecified; Z81.8 Family history of other mental and behavioral disorders; Z88.0 Allergy status to penicillin; Z88.8 Allergy status to other drugs, medicaments and biological substances; Z91.14 Patient's other noncompliance with medication regimen; Z68.42 Body mass index [BMI] 45.0-49.9, adult; Z79.899 Other long term (current) drug therapy; Z28.21 Immunization not carried out because of patient refusal; Z90.49 Acquired absence of other specified parts of digestive tract
CPT/HCPCS: 82962; 83036; 84443; 90471; 99285; G0480; J1815; J7030

== ENCOUNTER 2020-02-25 16:16 | Inpatient (IN) | payer MEDICAID ==
[~2020-02-25] VITALS: Ht 160 cm; Wt 123.4 kg
[~2020-02-25 16:16] MED LIST changes: +AMLO2.5T4 PO; -ARIP15TA3 PO; -CLON1 PO; +DIVA250T45 PO; +LORA0.5T83 PO; -OMEP20 PO; -OXCA150T3 PO; -PIOG15TA13 PO; -PRAV20TA PO; -QUET300T2 PO; +QUET400T5 PO; -QUET50TA PO
[2020-02-25] MEDS ORDERED: LEVO125 PO (17:52)
[2020-02-25] MEDS ORDERED: QUET50TA15 PO (17:52)
[2020-02-25] MEDS ORDERED: INFLUENZA VIRUS VACCINE QVS 2019-20 (3YR+)/PF 60 MCG/0.5 ML SYRINGE IM ONE (18:15)
[2020-02-25] MEDS ORDERED: PNEUMOCOCCAL VACCINE POLYVALENT 0.5 ML VIAL [PPSV23] IM ONE (18:15)
[2020-02-25] MEDS ORDERED: ChlorproMAZINE HCL 100 MG TABLET PO PRN (18:45)
[2020-02-25 18:49] VITALS: BP 148/76
[2020-02-25 18:51] LABS: GLUCOMETER DEV NAME(LOC) BV3N.; GLUCOSE,POINT OF CARE 540 MG/DL (70-110)
[2020-02-25] MEDS ORDERED: PROMETHAZINE HCL 25 MG TABLET PO PRN (19:00)
[2020-02-25] MEDS ORDERED: MAGNESIUM HYDROXIDE SUSPENSION 30 ML UDCUP PO PRN (19:00)
[2020-02-25] MEDS ORDERED: HydrOXYzine PAMOATE 50 MG CAPSULE PO PRN (19:00)
[2020-02-25] MEDS ORDERED: LOPERAMIDE HCL 2 MG CAPSULE PO PRN (19:00)
[2020-02-25] MEDS ORDERED: TUBERCULIN, PURIFIED PROTEIN DERIVATIVE 5 TU/0.1 ML SYRINGE ID ONE (19:00)
[2020-02-25] MEDS ORDERED: INSULIN LISPRO 100 UNITS/ML SQ PRN ×2 (20:15→21:15)
[2020-02-25] MEDS ORDERED: GLUCAGON,HUMAN RECOMBINANT 1 MG VIAL IM PRN ×2 (20:15→21:15)
[2020-02-25] MEDS ORDERED: QUEtiapine FUMARATE 300 MG ER TABLET PO SCH (21:00)
[2020-02-25] MEDS ORDERED: INSULIN GLARGINE,HUM.REC.ANLOG 100 UNITS/ML SQ SCH (21:00)
[2020-02-25] MEDS ORDERED: INSULIN LISPRO 100 UNITS/ML SQ ONE (21:15)
[2020-02-25] MEDS: LORazepam 2 MG TABLET PO PRN (22:24)
[2020-02-25] MEDS: ACETAMINOPHEN 325 MG TABLET PO PRN (22:25)
[2020-02-26 01:44] VITALS: BP 102/68
[2020-02-26] MEDS: QUEtiapine FUMARATE 100 MG TABLET PO PRN (02:50)
[2020-02-26] MEDS: ZOLPIDEM TARTRATE 10 MG TABLET PO PRN ×2 (02:50→21:05)
[2020-02-26] MEDS ORDERED: GLUCAGON,HUMAN RECOMBINANT 1 MG VIAL IM PRN (07:00)
[2020-02-26] MEDS: MetFORMIN HCL 500 MG TABLET PO SCH ×2 (07:00→16:22)
[2020-02-26] MEDS ORDERED: MetFORMIN HCL 500 MG TABLET PO SCH (07:00)
[2020-02-26] MEDS ORDERED: INSULIN LISPRO 100 UNITS/ML SQ ONE ×2 (07:01→10:30)
[2020-02-26 07:03] LABS: GLUCOMETER DEV NAME(LOC) BV3N.; GLUCOSE,POINT OF CARE 413 MG/DL (70-110)
[2020-02-26] MEDS: INSULIN LISPRO 100 UNITS/ML SQ PRN ×4 (07:32→20:32)
[2020-02-26] MEDS ORDERED: MetFORMIN HCL 500 MG TABLET PO ONE (07:45)
[2020-02-26] MEDS ORDERED: INSULIN GLARGINE,HUM.REC.ANLOG 100 UNITS/ML SQ ONE (07:45)
[2020-02-26 07:55] LABS: BASOPHILS % (AUTO) 0.5 % (0.0-2.0); EOSINOPHILS % (AUTO) 2.7 % (1.0-6.0); HEMATOCRIT 34.7 % (36-46); HEMOGLOBIN 11.4 g/dL (12.0-16.0); LYMPHOCYTES # (AUTO) 2.1 K/uL (1.0-4.8); LYMPHOCYTES % (AUTO) 24.9 % (22.0-44.0); MEAN CORPUSCULAR HEMOGLOBIN 29.9 pg (26.0-34.0); MEAN CORPUSCULAR HGB CONC 32.9 G/dL (31.0-37.0); MEAN CORPUSCULAR VOLUME 91 fL (80-100); MONOCYTES # (AUTO) 0.5 K/uL (0.1-1.0); MONOCYTES % (AUTO) 5.5 % (2.0-9.0); NEUTROPHILS # (AUTO) 5.7 K/uL (1.8-7.7); NEUTROPHILS % (AUTO) 66.4 % (40.0-70.0); PLATELET COUNT (AUTO) 253 K/uL (150-450); RED CELL DISTRIBUTION WIDTH 14.4 % (11.5-14.5)
[2020-02-26 08:16] LABS: ALBUMIN 3.9 g/dL (3.4-5.0); BILIRUBIN,TOTAL 0.5 mg/dL (0.1-1.0); CALCIUM, TOTAL 8.9 mg/dL (8.8-10.5); CHOL/HDL RATIO 4.6 (3.9-5.7); CREATININE 1.17 mg/dL (0.60-1.30); POTASSIUM 4.1 mmol/L (3.5-5.1); THYROID STIMULATING HORMONE 4.98 uIU/mL (0.36-3.74); TOTAL PROTEIN, SERUM 7.5 g/dL (6.4-8.2)
[2020-02-26] MEDS: GlipiZIDE 5 MG TABLET PO SCH (08:39)
[2020-02-26] MEDS: MULTIVITAMINS WITH MINERALS, THERAPEUTIC TABLET PO SCH (08:40)
[2020-02-26] MEDS: QUEtiapine FUMARATE 25 MG TABLET PO SCH ×2 (08:40→16:23)
[2020-02-26] MEDS: FOLIC ACID 1 MG TABLET PO SCH (08:40)
[2020-02-26] MEDS: THIAMINE HCL 100 MG TABLET PO SCH ×2 (08:41→16:22)
[2020-02-26] MEDS: LISINOPRIL 10 MG TABLET PO SCH ×2 (08:41→16:22)
[2020-02-26 08:46] VITALS: BP 130/79
[2020-02-26] MEDS: DIVALPROEX SODIUM 250 MG ER TABLET PO SCH (08:50)
[2020-02-26] MEDS ORDERED: METOPROLOL SUCCINATE 25 MG ER TABLET PO SCH (09:00)
[2020-02-26] MEDS ORDERED: DIVALPROEX SODIUM 500 MG ER TABLET PO SCH (09:00)
[2020-02-26 10:03] LABS: GLUCOMETER DEV NAME(LOC) BV3N.; GLUCOSE,POINT OF CARE 321 MG/DL (70-110)
[2020-02-26] MEDS: ACETAMINOPHEN 325 MG TABLET PO PRN (10:25)
[2020-02-26] MEDS: LORazepam 2 MG TABLET PO PRN ×2 (10:25→16:22)
[2020-02-26] MEDS: SODIUM CHLORIDE 1 GM TABLET PO SCH ×3 (10:30→16:23)
[2020-02-26 12:33] LABS: GLUCOMETER DEV NAME(LOC) BV3N.; GLUCOSE,POINT OF CARE 185 MG/DL (70-110)
[2020-02-26 16:17] VITALS: BP 128/71
[2020-02-26 16:36] LABS: GLUCOMETER DEV NAME(LOC) BV3N.; GLUCOSE,POINT OF CARE 186 MG/DL (70-110)
[2020-02-26] MEDS: QUEtiapine FUMARATE 200 MG ER TABLET PO SCH (20:11)
[2020-02-26 20:18] LABS: GLUCOMETER DEV NAME(LOC) BV3N.; GLUCOSE,POINT OF CARE 248 MG/DL (70-110)
[2020-02-26] MEDS ORDERED: INSULIN GLARGINE,HUM.REC.ANLOG 100 UNITS/ML SQ SCH ×2 (21:00)
[2020-02-26] MEDS: GuaiFENesin/D-METHORPHAN [SUGAR-FREE] 200-20MG/10 ML SYRUP UDCUP PO PRN (23:14)
[2020-02-27 00:10] VITALS: BP 129/79
[2020-02-27 06:23] LABS: GLUCOMETER DEV NAME(LOC) BV3N.; GLUCOSE,POINT OF CARE 298 MG/DL (70-110)
[2020-02-27] MEDS: MetFORMIN HCL 500 MG TABLET PO SCH ×2 (07:04→16:46)
[2020-02-27] MEDS: GlipiZIDE 5 MG TABLET PO SCH (07:04)
[2020-02-27] MEDS: INSULIN LISPRO 100 UNITS/ML SQ PRN ×4 (07:13→21:18)
[2020-02-27 07:23] LABS: BASOPHILS % (AUTO) 0.3 % (0.0-2.0); EOSINOPHILS % (AUTO) 2.7 % (1.0-6.0); HEMATOCRIT 32.6 % (36-46); HEMOGLOBIN 10.7 g/dL (12.0-16.0); LYMPHOCYTES # (AUTO) 2.1 K/uL (1.0-4.8); LYMPHOCYTES % (AUTO) 22.9 % (22.0-44.0); MEAN CORPUSCULAR HEMOGLOBIN 29.3 pg (26.0-34.0); MEAN CORPUSCULAR HGB CONC 32.6 G/dL (31.0-37.0); MEAN CORPUSCULAR VOLUME 90 fL (80-100); MONOCYTES # (AUTO) 0.4 K/uL (0.1-1.0); MONOCYTES % (AUTO) 4.8 % (2.0-9.0); NEUTROPHILS # (AUTO) 6.3 K/uL (1.8-7.7); NEUTROPHILS % (AUTO) 69.3 % (40.0-70.0); PLATELET COUNT (AUTO) 304 K/uL (150-450); RED BLOOD CELL COUNT(AUTO) 3.63 MIL/uL (4.00-5.20); RED CELL DISTRIBUTION WIDTH 14.5 % (11.5-14.5)
[2020-02-27 07:49] LABS: CALCIUM, TOTAL 8.9 mg/dL (8.8-10.5); CREATININE 1.32 mg/dL (0.60-1.30); POTASSIUM 4.4 mmol/L (3.5-5.1)
[2020-02-27 08:35] VITALS: BP 130/79
[2020-02-27] MEDS: METOPROLOL SUCCINATE 25 MG ER TABLET PO SCH (09:32)
[2020-02-27] MEDS: FOLIC ACID 1 MG TABLET PO SCH (09:32)
[2020-02-27] MEDS: LISINOPRIL 10 MG TABLET PO SCH ×2 (09:32→16:46)
[2020-02-27] MEDS: MULTIVITAMINS WITH MINERALS, THERAPEUTIC TABLET PO SCH (09:34)
[2020-02-27] MEDS: QUEtiapine FUMARATE 25 MG TABLET PO SCH ×2 (09:34→16:46)
[2020-02-27] MEDS: DIVALPROEX SODIUM 250 MG ER TABLET PO SCH (09:34)
[2020-02-27] MEDS: THIAMINE HCL 100 MG TABLET PO SCH ×2 (09:36→16:46)
[2020-02-27] MEDS: SODIUM CHLORIDE 1 GM TABLET PO SCH ×3 (09:37→16:46)
[2020-02-27 11:18] LABS: GLUCOMETER DEV NAME(LOC) BV3N.; GLUCOSE,POINT OF CARE 237 MG/DL (70-110)
[2020-02-27] MEDS: ACETAMINOPHEN 325 MG TABLET PO PRN ×2 (13:51→23:42)
[2020-02-27] MEDS: LOPERAMIDE HCL 2 MG CAPSULE PO PRN (13:58)
[2020-02-27 14:00] VITALS: BP 112/58
[2020-02-27 16:06] VITALS: BP 128/65
[2020-02-27] MEDS: ALBUTEROL SULFATE HFA 90 MCG/PUFF 8 GM INHALER IH PRN (16:30)
[2020-02-27 16:33] LABS: GLUCOMETER DEV NAME(LOC) BV3N.; GLUCOSE,POINT OF CARE 259 MG/DL (70-110)
[2020-02-27] MEDS ORDERED: INSULIN GLARGINE,HUM.REC.ANLOG 100 UNITS/ML SQ SCH (19:00)
[2020-02-27 20:23] LABS: GLUCOMETER DEV NAME(LOC) BV3N.; GLUCOSE,POINT OF CARE 248 MG/DL (70-110)
[2020-02-27] MEDS: QUEtiapine FUMARATE 200 MG ER TABLET PO SCH (20:57)
[2020-02-27] MEDS: INSULIN GLARGINE,HUM.REC.ANLOG 100 UNITS/ML SQ SCH (21:18)
[2020-02-27] MEDS: MAG HYDROX/AL HYDROX/SIMETH ES 30 ML SUSPENSION UDCUP PO PRN (22:16)
[2020-02-28] MEDS: ALBUTEROL SULFATE HFA 90 MCG/PUFF 8 GM INHALER IH PRN ×2 (00:46→08:26)
[2020-02-28 00:48] VITALS: BP 124/64
[2020-02-28 06:03] LABS: GLUCOMETER DEV NAME(LOC) BV3N.; GLUCOSE,POINT OF CARE 309 MG/DL (70-110)
[2020-02-28] MEDS: GlipiZIDE 5 MG TABLET PO SCH (06:32)
[2020-02-28] MEDS: MetFORMIN HCL 500 MG TABLET PO SCH ×2 (06:32→16:26)
[2020-02-28] MEDS: INSULIN LISPRO 100 UNITS/ML SQ PRN ×4 (06:37→21:25)
[2020-02-28] MEDS: DIVALPROEX SODIUM 250 MG ER TABLET PO SCH (08:18)
[2020-02-28] MEDS: LISINOPRIL 10 MG TABLET PO SCH ×2 (08:18→16:27)
[2020-02-28] MEDS: THIAMINE HCL 100 MG TABLET PO SCH ×2 (08:18→16:26)
[2020-02-28] MEDS: METOPROLOL SUCCINATE 25 MG ER TABLET PO SCH (08:18)
[2020-02-28] MEDS: SODIUM CHLORIDE 1 GM TABLET PO SCH ×3 (08:18→16:27)
[2020-02-28] MEDS: FOLIC ACID 1 MG TABLET PO SCH (08:18)
[2020-02-28] MEDS: MULTIVITAMINS WITH MINERALS, THERAPEUTIC TABLET PO SCH (08:18)
[2020-02-28] MEDS: QUEtiapine FUMARATE 25 MG TABLET PO SCH ×2 (08:18→16:26)
[2020-02-28] MEDS: LORazepam 2 MG TABLET PO PRN ×2 (08:21→20:28)
[2020-02-28 08:25] VITALS: BP 135/60
[2020-02-28] MEDS: INSULIN GLARGINE,HUM.REC.ANLOG 100 UNITS/ML SQ SCH ×2 (08:29→21:26)
[2020-02-28] MEDS: ACETAMINOPHEN 325 MG TABLET PO PRN (09:30)
[2020-02-28] MEDS: GuaiFENesin/D-METHORPHAN [SUGAR-FREE] 200-20MG/10 ML SYRUP UDCUP PO PRN (11:31)
[2020-02-28] MEDS: LOPERAMIDE HCL 2 MG CAPSULE PO PRN ×2 (12:23→20:34)
[2020-02-28 12:36] LABS: GLUCOMETER DEV NAME(LOC) BV3N.; GLUCOSE,POINT OF CARE 239 MG/DL (70-110)
[2020-02-28 16:08] VITALS: BP 111/75
[2020-02-28 16:44] LABS: GLUCOMETER DEV NAME(LOC) BV3N.; GLUCOSE,POINT OF CARE 181 MG/DL (70-110)
[2020-02-28] MEDS: QUEtiapine FUMARATE 200 MG ER TABLET PO SCH (20:28)
[2020-02-28 22:12] LABS: GLUCOMETER DEV NAME(LOC) BV3N.; GLUCOSE,POINT OF CARE 283 MG/DL (70-110)
[2020-02-29] MEDS: ALBUTEROL SULFATE HFA 90 MCG/PUFF 8 GM INHALER IH PRN ×2 (00:26→22:18)
[2020-02-29 04:26] VITALS: BP 120/75
[2020-02-29] MEDS: ACETAMINOPHEN 325 MG TABLET PO PRN ×3 (04:47→12:11)
[2020-02-29 06:08] LABS: GLUCOMETER DEV NAME(LOC) BV3N.; GLUCOSE,POINT OF CARE 264 MG/DL (70-110)
[2020-02-29] MEDS: MetFORMIN HCL 500 MG TABLET PO SCH ×2 (06:32→16:07)
[2020-02-29] MEDS: GlipiZIDE 5 MG TABLET PO SCH (06:32)
[2020-02-29] MEDS: INSULIN LISPRO 100 UNITS/ML SQ PRN ×4 (06:33→21:14)
[2020-02-29 08:23] VITALS: BP 130/64
[2020-02-29] MEDS: INSULIN GLARGINE,HUM.REC.ANLOG 100 UNITS/ML SQ SCH ×2 (08:27→20:25)
[2020-02-29] MEDS: SODIUM CHLORIDE 1 GM TABLET PO SCH ×3 (08:44→16:14)
[2020-02-29] MEDS: LISINOPRIL 10 MG TABLET PO SCH ×2 (08:44→16:08)
[2020-02-29] MEDS: FOLIC ACID 1 MG TABLET PO SCH (08:45)
[2020-02-29] MEDS: QUEtiapine FUMARATE 25 MG TABLET PO SCH ×3 (08:45→20:25)
[2020-02-29] MEDS: MULTIVITAMINS WITH MINERALS, THERAPEUTIC TABLET PO SCH (08:45)
[2020-02-29] MEDS: METOPROLOL SUCCINATE 25 MG ER TABLET PO SCH (08:45)
[2020-02-29] MEDS: THIAMINE HCL 100 MG TABLET PO SCH ×2 (08:45→16:07)
[2020-02-29] MEDS: DIVALPROEX SODIUM 250 MG ER TABLET PO SCH (08:46)
[2020-02-29] MEDS: MAG HYDROX/AL HYDROX/SIMETH ES 30 ML SUSPENSION UDCUP PO PRN ×2 (10:09→12:10)
[2020-02-29 11:45] LABS: GLUCOMETER DEV NAME(LOC) BV3N.; GLUCOSE,POINT OF CARE 286 MG/DL (70-110)
[2020-02-29 16:18] LABS: GLUCOMETER DEV NAME(LOC) BV3N.; GLUCOSE,POINT OF CARE 277 MG/DL (70-110)
[2020-02-29 17:24] VITALS: BP 133/74
[2020-02-29 20:30] LABS: GLUCOMETER DEV NAME(LOC) BV3N.; GLUCOSE,POINT OF CARE 138 MG/DL (70-110)
[2020-02-29] MEDS ORDERED: QUEtiapine FUMARATE 25 MG TABLET PO SCH (21:00)
[2020-02-29] MEDS: ZOLPIDEM TARTRATE 10 MG TABLET PO PRN (21:50)
[2020-03-01] MEDS: ACETAMINOPHEN 325 MG TABLET PO PRN ×2 (00:25→16:35)
[2020-03-01] MEDS: ALBUTEROL SULFATE HFA 90 MCG/PUFF 8 GM INHALER IH PRN ×3 (02:41→18:23)
[2020-03-01 04:11] VITALS: BP 142/77
[2020-03-01] MEDS: MetFORMIN HCL 500 MG TABLET PO SCH ×2 (06:35→16:12)
[2020-03-01] MEDS: GlipiZIDE 5 MG TABLET PO SCH (06:35)
[2020-03-01] MEDS: INSULIN LISPRO 100 UNITS/ML SQ PRN ×4 (06:36→20:44)
[2020-03-01 08:22] VITALS: BP 145/83
[2020-03-01] MEDS: THIAMINE HCL 100 MG TABLET PO SCH ×2 (08:28→16:16)
[2020-03-01] MEDS: MULTIVITAMINS WITH MINERALS, THERAPEUTIC TABLET PO SCH (08:29)
[2020-03-01] MEDS: SODIUM CHLORIDE 1 GM TABLET PO SCH ×3 (08:29→16:14)
[2020-03-01] MEDS: METOPROLOL SUCCINATE 25 MG ER TABLET PO SCH (08:29)
[2020-03-01] MEDS: FOLIC ACID 1 MG TABLET PO SCH (08:29)
[2020-03-01] MEDS: LISINOPRIL 10 MG TABLET PO SCH ×2 (08:30→16:12)
[2020-03-01] MEDS: QUEtiapine FUMARATE 25 MG TABLET PO SCH ×2 (08:31→16:15)
[2020-03-01] MEDS: DIVALPROEX SODIUM 250 MG ER TABLET PO SCH (08:31)
[2020-03-01] MEDS: INSULIN GLARGINE,HUM.REC.ANLOG 100 UNITS/ML SQ SCH ×2 (08:39→20:50)
[2020-03-01] MEDS: LORazepam 2 MG TABLET PO PRN ×2 (08:39→16:35)
[2020-03-01 11:17] LABS: GLUCOMETER DEV NAME(LOC) BV3N.; GLUCOSE,POINT OF CARE 217 MG/DL (70-110)
[2020-03-01 16:15] VITALS: BP 131/85
[2020-03-01 19:58] LABS: GLUCOMETER DEV NAME(LOC) BV3N.; GLUCOSE,POINT OF CARE 127 MG/DL (70-110)
[2020-03-01] MEDS: MAG HYDROX/AL HYDROX/SIMETH ES 30 ML SUSPENSION UDCUP PO PRN (20:52)
[2020-03-01] MEDS ORDERED: QUEtiapine FUMARATE 200 MG TABLET PO SCH (21:00)
[2020-03-02] MEDS: ALBUTEROL SULFATE HFA 90 MCG/PUFF 8 GM INHALER IH PRN ×2 (00:53→17:25)
[2020-03-02 01:00] VITALS: BP 144/76
[2020-03-02] MEDS: MAG HYDROX/AL HYDROX/SIMETH ES 30 ML SUSPENSION UDCUP PO PRN (02:44)
[2020-03-02 06:14] LABS: GLUCOMETER DEV NAME(LOC) BV3N.; GLUCOSE,POINT OF CARE 181 MG/DL (70-110)
[2020-03-02] MEDS: MetFORMIN HCL 500 MG TABLET PO SCH ×2 (06:35→16:07)
[2020-03-02] MEDS: GlipiZIDE 5 MG TABLET PO SCH (06:35)
[2020-03-02] MEDS: INSULIN LISPRO 100 UNITS/ML SQ PRN ×4 (06:45→20:38)
[2020-03-02 08:28] LABS: HEMOGLOBIN 11.2 g/dL (12.0-16.0); MEAN CORPUSCULAR HEMOGLOBIN 29.7 pg (26.0-34.0); MEAN CORPUSCULAR HGB CONC 32.8 G/dL (31.0-37.0); MEAN CORPUSCULAR VOLUME 91 fL (80-100); PLATELET COUNT (AUTO) 331 K/uL (150-450); RED BLOOD CELL COUNT(AUTO) 3.76 MIL/uL (4.00-5.20)
[2020-03-02] MEDS: THIAMINE HCL 100 MG TABLET PO SCH ×2 (08:52→16:08)
[2020-03-02] MEDS: MULTIVITAMINS WITH MINERALS, THERAPEUTIC TABLET PO SCH (08:54)
[2020-03-02] MEDS: QUEtiapine FUMARATE 25 MG TABLET PO SCH ×3 (08:54→16:08)
[2020-03-02] MEDS: METOPROLOL SUCCINATE 25 MG ER TABLET PO SCH (08:55)
[2020-03-02] MEDS: FOLIC ACID 1 MG TABLET PO SCH (08:55)
[2020-03-02] MEDS: SODIUM CHLORIDE 1 GM TABLET PO SCH ×4 (08:56→20:30)
[2020-03-02] MEDS: DIVALPROEX SODIUM 250 MG ER TABLET PO SCH (08:56)
[2020-03-02] MEDS: LISINOPRIL 10 MG TABLET PO SCH ×2 (08:56→16:08)
[2020-03-02] MEDS: INSULIN GLARGINE,HUM.REC.ANLOG 100 UNITS/ML SQ SCH ×2 (09:00→20:37)
[2020-03-02 09:03] LABS: CALCIUM, TOTAL 9.2 mg/dL (8.8-10.5); CREATININE 1.09 mg/dL (0.60-1.30); MAGNESIUM 2.2 mg/dL (1.80-2.40); PHOSPHORUS 3.4 mg/dL (2.5-4.9); POTASSIUM 5.2 mmol/L (3.5-5.1)
[2020-03-02 09:47] LABS: BAND NEUTROPHILS % (MANUAL) 1 % (0-5); EOSINOPHILS % (MANUAL) 1 % (1-6); LYMPHOCYTES % (MANUAL) 18 % (22-44); MONOCYTES % (MANUAL) 3 % (2-9); SEGMENTED NEUTROPHILS % 77 % (40-70)
[2020-03-02] MEDS ORDERED: SODIUM POLYSTYRENE SULFONATE 15 GM/60 ML SUSPENSION BOTTLE PO ONE (10:15)
[2020-03-02 11:35] LABS: GLUCOMETER DEV NAME(LOC) BV3N.; GLUCOSE,POINT OF CARE 186 MG/DL (70-110)
[2020-03-02] MEDS: ACETAMINOPHEN 325 MG TABLET PO PRN (12:39)
[2020-03-02 16:25] LABS: GLUCOMETER DEV NAME(LOC) BV3N.; GLUCOSE,POINT OF CARE 121 MG/DL (70-110)
[2020-03-02] MEDS: LOPERAMIDE HCL 2 MG CAPSULE PO PRN (17:09)
[2020-03-02 17:10] VITALS: BP 133/67
[2020-03-02 20:45] LABS: GLUCOMETER DEV NAME(LOC) BV3N.; GLUCOSE,POINT OF CARE 195 MG/DL (70-110)
[2020-03-02] MEDS ORDERED: QUEtiapine FUMARATE 200 MG TABLET PO SCH (21:00)
[2020-03-03 01:00] VITALS: BP 135/72
[2020-03-03] MEDS: ACETAMINOPHEN 325 MG TABLET PO PRN ×2 (01:03→09:44)
[2020-03-03] MEDS: ZOLPIDEM TARTRATE 10 MG TABLET PO PRN (01:42)
[2020-03-03] MEDS: MAG HYDROX/AL HYDROX/SIMETH ES 30 ML SUSPENSION UDCUP PO PRN ×3 (01:42→17:44)
[2020-03-03 03:20] VITALS: BP 132/78
[2020-03-03 06:28] LABS: GLUCOMETER DEV NAME(LOC) BV3N.; GLUCOSE,POINT OF CARE 153 MG/DL (70-110)
[2020-03-03] MEDS: MetFORMIN HCL 500 MG TABLET PO SCH ×2 (06:31→16:37)
[2020-03-03] MEDS: GlipiZIDE 5 MG TABLET PO SCH (06:31)
[2020-03-03] MEDS: INSULIN LISPRO 100 UNITS/ML SQ PRN ×4 (06:34→20:56)
[2020-03-03 08:22] LABS: ANION GAP 7 mmol/L (8-16); CALCIUM, TOTAL 9.2 mg/dL (8.8-10.5); CARBON DIOXIDE 29 mmol/L (22-29); CHLORIDE 92 mmol/L (98-107); CREATININE 0.84 mg/dL (0.60-1.30); GLOMERULAR FILTR. RATE CALC > 60 mL/min (>60); GLUCOSE,RANDOM 195 mg/dL (70-110); POTASSIUM 5.6 mmol/L (3.5-5.1); SODIUM SERUM 128 mmol/L (136-145); UREA NITROGEN, BLOOD 9 mg/dL (7-18)
[2020-03-03] MEDS: THIAMINE HCL 100 MG TABLET PO SCH ×2 (08:27→16:37)
[2020-03-03] MEDS: SODIUM CHLORIDE 1 GM TABLET PO SCH ×4 (08:27→20:53)
[2020-03-03] MEDS: DIVALPROEX SODIUM 250 MG ER TABLET PO SCH (08:28)
[2020-03-03] MEDS: FOLIC ACID 1 MG TABLET PO SCH (08:28)
[2020-03-03] MEDS: QUEtiapine FUMARATE 25 MG TABLET PO SCH ×3 (08:28→16:37)
[2020-03-03] MEDS: MULTIVITAMINS WITH MINERALS, THERAPEUTIC TABLET PO SCH (08:28)
[2020-03-03 08:29] VITALS: BP 122/58
[2020-03-03] MEDS: LISINOPRIL 10 MG TABLET PO SCH ×2 (08:29→16:37)
[2020-03-03] MEDS: METOPROLOL SUCCINATE 25 MG ER TABLET PO SCH (08:30)
[2020-03-03 08:52] LABS: GLUCOMETER DEV NAME(LOC) BV3N.; GLUCOSE,POINT OF CARE 252 MG/DL (70-110)
[2020-03-03] MEDS: INSULIN GLARGINE,HUM.REC.ANLOG 100 UNITS/ML SQ SCH ×2 (08:52→20:58)
[2020-03-03 08:55] VITALS: BP 122/58
[2020-03-03] MEDS: LORazepam 2 MG TABLET PO PRN ×2 (09:22→16:37)
[2020-03-03 09:44] VITALS: BP 123/73
[2020-03-03] MEDS ORDERED: SODIUM POLYSTYRENE SULFONATE 15 GM/60 ML SUSPENSION BOTTLE PO ONE (09:45)
[2020-03-03 11:56] LABS: GLUCOMETER DEV NAME(LOC) BV3N.; GLUCOSE,POINT OF CARE 129 MG/DL (70-110)
[2020-03-03] MEDS: LOPERAMIDE HCL 2 MG CAPSULE PO PRN (15:22)
[2020-03-03 16:15] LABS: GLUCOMETER DEV NAME(LOC) BV3N.; GLUCOSE,POINT OF CARE 197 MG/DL (70-110)
[2020-03-03 17:54] VITALS: BP 142/76
[2020-03-03 20:20] LABS: GLUCOMETER DEV NAME(LOC) BV3N.; GLUCOSE,POINT OF CARE 308 MG/DL (70-110)
[2020-03-03] MEDS ORDERED: QUEtiapine FUMARATE 300 MG TABLET PO SCH (21:00)
[2020-03-04] MEDS: ACETAMINOPHEN 325 MG TABLET PO PRN ×2 (03:50→17:36)
[2020-03-04] MEDS: MAG HYDROX/AL HYDROX/SIMETH ES 30 ML SUSPENSION UDCUP PO PRN ×3 (03:51→21:00)
[2020-03-04 04:07] VITALS: BP 127/70
[2020-03-04 06:10] LABS: GLUCOMETER DEV NAME(LOC) BV3N.; GLUCOSE,POINT OF CARE 113 MG/DL (70-110)
[2020-03-04] MEDS: GlipiZIDE 5 MG TABLET PO SCH (06:36)
[2020-03-04] MEDS: MetFORMIN HCL 500 MG TABLET PO SCH ×2 (06:36→16:53)
[2020-03-04 07:43] LABS: HEMOGLOBIN 10.7 g/dL (12.0-16.0); MEAN CORPUSCULAR HEMOGLOBIN 29.5 pg (26.0-34.0); MEAN CORPUSCULAR HGB CONC 32.4 G/dL (31.0-37.0); MEAN CORPUSCULAR VOLUME 91 fL (80-100); PLATELET COUNT (AUTO) 314 K/uL (150-450); RED BLOOD CELL COUNT(AUTO) 3.63 MIL/uL (4.00-5.20); RED CELL DISTRIBUTION WIDTH 14.7 % (11.5-14.5)
[2020-03-04 07:54] LABS: BAND NEUTROPHILS % (MANUAL) 1 % (0-5); EOSINOPHILS % (MANUAL) 1 % (1-6); LYMPHOCYTES % (MANUAL) 19 % (22-44); MONOCYTES % (MANUAL) 4 % (2-9); SEGMENTED NEUTROPHILS % 75 % (40-70)
[2020-03-04 08:01] LABS: CALCIUM, TOTAL 9.1 mg/dL (8.8-10.5); CREATININE 0.98 mg/dL (0.60-1.30); MAGNESIUM 2.3 mg/dL (1.80-2.40); PHOSPHORUS 4.3 mg/dL (2.5-4.9); POTASSIUM 4.7 mmol/L (3.5-5.1)
[2020-03-04 08:26] VITALS: BP 120/57
[2020-03-04] MEDS: SODIUM CHLORIDE 1 GM TABLET PO SCH ×4 (09:01→20:59)
[2020-03-04] MEDS: QUEtiapine FUMARATE 25 MG TABLET PO SCH ×3 (09:01→16:53)
[2020-03-04] MEDS: FOLIC ACID 1 MG TABLET PO SCH (09:02)
[2020-03-04] MEDS: DIVALPROEX SODIUM 250 MG ER TABLET PO SCH (09:02)
[2020-03-04] MEDS: MULTIVITAMINS WITH MINERALS, THERAPEUTIC TABLET PO SCH (09:02)
[2020-03-04] MEDS: METOPROLOL SUCCINATE 25 MG ER TABLET PO SCH (09:02)
[2020-03-04] MEDS: LORazepam 2 MG TABLET PO PRN (09:03)
[2020-03-04] MEDS: THIAMINE HCL 100 MG TABLET PO SCH ×2 (09:03→16:53)
[2020-03-04 09:28] LABS: GLUCOMETER DEV NAME(LOC) BV3N.; GLUCOSE,POINT OF CARE 226 MG/DL (70-110)
[2020-03-04] MEDS: INSULIN GLARGINE,HUM.REC.ANLOG 100 UNITS/ML SQ SCH ×2 (09:34→21:03)
[2020-03-04] MEDS: LISINOPRIL 10 MG TABLET PO SCH ×2 (09:36→16:53)
[2020-03-04 11:13] LABS: GLUCOMETER DEV NAME(LOC) BV3N.; GLUCOSE,POINT OF CARE 163 MG/DL (70-110)
[2020-03-04] MEDS: INSULIN LISPRO 100 UNITS/ML SQ PRN ×2 (12:13→16:58)
[2020-03-04] MEDS: ALBUTEROL SULFATE HFA 90 MCG/PUFF 8 GM INHALER IH PRN ×3 (12:33→21:54)
[2020-03-04 17:59] VITALS: BP 123/66
[2020-03-04] MEDS: IBUPROFEN 400 MG TABLET PO PRN (18:57)
[2020-03-04] MEDS: QUEtiapine FUMARATE 100 MG TABLET PO SCH (20:59)
[2020-03-04] MEDS: LOPERAMIDE HCL 2 MG CAPSULE PO PRN (20:59)
[2020-03-04 22:27] LABS: GLUCOMETER DEV NAME(LOC) BV3N.; GLUCOSE,POINT OF CARE 180 MG/DL (70-110)
[2020-03-04 22:27] LABS: GLUCOMETER DEV NAME(LOC) BV3N.; GLUCOSE,POINT OF CARE 104 MG/DL (70-110)
[2020-03-05 04:35] VITALS: BP 124/70
[2020-03-05 06:21] LABS: GLUCOMETER DEV NAME(LOC) BV3N.; GLUCOSE,POINT OF CARE 88 MG/DL (70-110)
[2020-03-05] MEDS: MetFORMIN HCL 500 MG TABLET PO SCH ×2 (06:34→16:10)
[2020-03-05] MEDS: GlipiZIDE 5 MG TABLET PO SCH (06:34)
[2020-03-05 08:32] VITALS: BP 125/57
[2020-03-05] MEDS: DIVALPROEX SODIUM 250 MG ER TABLET PO SCH (08:42)
[2020-03-05] MEDS: THIAMINE HCL 100 MG TABLET PO SCH ×2 (08:43→17:00)
[2020-03-05] MEDS: MULTIVITAMINS WITH MINERALS, THERAPEUTIC TABLET PO SCH (08:43)
[2020-03-05] MEDS: FOLIC ACID 1 MG TABLET PO SCH (08:43)
[2020-03-05] MEDS: QUEtiapine FUMARATE 25 MG TABLET PO SCH ×3 (08:43→16:11)
[2020-03-05] MEDS: METOPROLOL SUCCINATE 25 MG ER TABLET PO SCH (08:43)
[2020-03-05] MEDS: LISINOPRIL 10 MG TABLET PO SCH ×2 (08:44→16:10)
[2020-03-05] MEDS: LORazepam 2 MG TABLET PO PRN ×2 (08:47→16:11)
[2020-03-05 09:26] LABS: HEMATOCRIT 34.1 % (36-46); HEMOGLOBIN 11.3 g/dL (12.0-16.0); MEAN CORPUSCULAR HEMOGLOBIN 30.4 pg (26.0-34.0); MEAN CORPUSCULAR HGB CONC 33.2 G/dL (31.0-37.0); MEAN CORPUSCULAR VOLUME 92 fL (80-100); PLATELET COUNT (AUTO) 342 K/uL (150-450); RED BLOOD CELL COUNT(AUTO) 3.72 MIL/uL (4.00-5.20); RED CELL DISTRIBUTION WIDTH 15.2 % (11.5-14.5)
[2020-03-05 09:51] LABS: CALCIUM, TOTAL 9.1 mg/dL (8.8-10.5); CREATININE 1.12 mg/dL (0.60-1.30); MAGNESIUM 2.3 mg/dL (1.80-2.40); PHOSPHORUS 4.2 mg/dL (2.5-4.9); POTASSIUM 4.8 mmol/L (3.5-5.1); THYROID STIMULATING HORMONE 25.6 uIU/mL (0.36-3.74)
[2020-03-05] MEDS: INSULIN GLARGINE,HUM.REC.ANLOG 100 UNITS/ML SQ SCH ×2 (10:06→20:17)
[2020-03-05] MEDS: SODIUM CHLORIDE 1 GM TABLET PO SCH ×4 (10:33→20:04)
[2020-03-05 10:38] LABS: BAND NEUTROPHILS % (MANUAL) 1 % (0-5); LYMPHOCYTES % (MANUAL) 28 % (22-44); MONOCYTES % (MANUAL) 7 % (2-9); SEGMENTED NEUTROPHILS % 64 % (40-70)
[2020-03-05 11:20] LABS: GLUCOMETER DEV NAME(LOC) BV3N.; GLUCOSE,POINT OF CARE 193 MG/DL (70-110)
[2020-03-05] MEDS: INSULIN LISPRO 100 UNITS/ML SQ PRN ×2 (11:53→20:18)
[2020-03-05] MEDS: IBUPROFEN 400 MG TABLET PO PRN (12:52)
[2020-03-05] MEDS: ALBUTEROL SULFATE HFA 90 MCG/PUFF 8 GM INHALER IH PRN ×2 (16:20→21:30)
[2020-03-05 16:30] LABS: GLUCOMETER DEV NAME(LOC) BV3N.; GLUCOSE,POINT OF CARE 99 MG/DL (70-110)
[2020-03-05 17:56] VITALS: BP 131/63
[2020-03-05] MEDS: QUEtiapine FUMARATE 100 MG TABLET PO SCH (20:04)
[2020-03-05 20:27] LABS: GLUCOMETER DEV NAME(LOC) BV3N.; GLUCOSE,POINT OF CARE 144 MG/DL (70-110)
[2020-03-05] MEDS: MAG HYDROX/AL HYDROX/SIMETH ES 30 ML SUSPENSION UDCUP PO PRN (21:35)
[2020-03-06 04:24] VITALS: BP 127/70
[2020-03-06 06:04] LABS: GLUCOMETER DEV NAME(LOC) BV3N.; GLUCOSE,POINT OF CARE 88 MG/DL (70-110)
[2020-03-06] MEDS: MetFORMIN HCL 500 MG TABLET PO SCH ×2 (06:13→17:33)
[2020-03-06] MEDS: ZIPRASIDONE HCL 40 MG CAPSULE PO SCH ×2 (06:13→17:32)
[2020-03-06] MEDS: GlipiZIDE 5 MG TABLET PO SCH (06:13)
[2020-03-06] MEDS: ALBUTEROL SULFATE HFA 90 MCG/PUFF 8 GM INHALER IH PRN (06:14)
[2020-03-06] MEDS: METOPROLOL SUCCINATE 25 MG ER TABLET PO SCH (08:19)
[2020-03-06] MEDS: SODIUM CHLORIDE 1 GM TABLET PO SCH ×4 (08:19→20:32)
[2020-03-06] MEDS: FOLIC ACID 1 MG TABLET PO SCH (08:19)
[2020-03-06] MEDS: LISINOPRIL 10 MG TABLET PO SCH ×2 (08:20→17:33)
[2020-03-06] MEDS: MULTIVITAMINS WITH MINERALS, THERAPEUTIC TABLET PO SCH (08:20)
[2020-03-06] MEDS: THIAMINE HCL 100 MG TABLET PO SCH ×2 (08:20→17:33)
[2020-03-06 08:30] VITALS: BP 124/60
[2020-03-06] MEDS: INSULIN GLARGINE,HUM.REC.ANLOG 100 UNITS/ML SQ SCH ×2 (09:00→20:38)
[2020-03-06 10:03] LABS: CALCIUM, TOTAL 9.3 mg/dL (8.8-10.5); CREATININE 1.14 mg/dL (0.60-1.30); POTASSIUM 4.9 mmol/L (3.5-5.1)
[2020-03-06 11:22] LABS: GLUCOMETER DEV NAME(LOC) BV3N.; GLUCOSE,POINT OF CARE 152 MG/DL (70-110)
[2020-03-06] MEDS: INSULIN LISPRO 100 UNITS/ML SQ PRN ×2 (11:43→17:49)
[2020-03-06] MEDS ORDERED: INSULIN GLARGINE,HUM.REC.ANLOG 100 UNITS/ML SQ ONE (12:00)
[2020-03-06] MEDS: LORazepam 2 MG TABLET PO PRN ×2 (12:08→17:34)
[2020-03-06] MEDS: IBUPROFEN 400 MG TABLET PO PRN (12:10)
[2020-03-06] MEDS: LOPERAMIDE HCL 2 MG CAPSULE PO PRN (12:46)
[2020-03-06 16:13] VITALS: BP 124/64
[2020-03-06 17:14] LABS: GLUCOMETER DEV NAME(LOC) BV3N.; GLUCOSE,POINT OF CARE 120 MG/DL (70-110)
[2020-03-06] MEDS: QUEtiapine FUMARATE 100 MG TABLET PO PRN (17:34)
[2020-03-06] MEDS: MAG HYDROX/AL HYDROX/SIMETH ES 30 ML SUSPENSION UDCUP PO PRN ×2 (19:44→23:53)
[2020-03-06 20:19] LABS: GLUCOMETER DEV NAME(LOC) BV3N.; GLUCOSE,POINT OF CARE 83 MG/DL (70-110)
[2020-03-06] MEDS: ZOLPIDEM TARTRATE 10 MG TABLET PO PRN (20:32)
[2020-03-06] MEDS: DiphenhydrAMINE HCL 50 MG CAPSULE PO SCH (20:32)
[2020-03-06] MEDS ORDERED: DIVALPROEX SODIUM 500 MG ER TABLET PO SCH (21:00)
[2020-03-07 00:25] VITALS: BP 126/68
[2020-03-07] MEDS: QUEtiapine FUMARATE 100 MG TABLET PO PRN (00:33)
[2020-03-07] MEDS: LORazepam 2 MG TABLET PO PRN ×2 (00:33→10:06)
[2020-03-07 05:50] LABS: GLUCOMETER DEV NAME(LOC) BV3N.; GLUCOSE,POINT OF CARE 64 MG/DL (70-110)
[2020-03-07] MEDS: GlipiZIDE 5 MG TABLET PO SCH (06:18)
[2020-03-07 06:27] LABS: GLUCOMETER DEV NAME(LOC) BV3N.; GLUCOSE,POINT OF CARE 109 MG/DL (70-110)
[2020-03-07] MEDS ORDERED: LEVOTHYROXINE SODIUM 100 MCG TABLET PO SCH (06:30)
[2020-03-07] MEDS: ZIPRASIDONE HCL 40 MG CAPSULE PO SCH (06:52)
[2020-03-07] MEDS: MetFORMIN HCL 500 MG TABLET PO SCH ×2 (06:53→17:57)
[2020-03-07 08:35] VITALS: BP 163/90
[2020-03-07] MEDS ORDERED: DIVALPROEX SODIUM 250 MG ER TABLET PO ONE (09:00)
[2020-03-07] MEDS: MULTIVITAMINS WITH MINERALS, THERAPEUTIC TABLET PO SCH (10:02)
[2020-03-07] MEDS: METOPROLOL SUCCINATE 25 MG ER TABLET PO SCH (10:02)
[2020-03-07] MEDS: SODIUM CHLORIDE 1 GM TABLET PO SCH ×4 (10:03→21:55)
[2020-03-07] MEDS: LISINOPRIL 10 MG TABLET PO SCH ×2 (10:06→17:57)
[2020-03-07] MEDS: INSULIN GLARGINE,HUM.REC.ANLOG 100 UNITS/ML SQ SCH ×2 (11:00→22:15)
[2020-03-07] MEDS: IBUPROFEN 400 MG TABLET PO PRN ×2 (12:25→21:56)
[2020-03-07 12:38] LABS: GLUCOMETER DEV NAME(LOC) BV3N.; GLUCOSE,POINT OF CARE 99 MG/DL (70-110)
[2020-03-07 16:32] LABS: GLUCOMETER DEV NAME(LOC) BV3N.; GLUCOSE,POINT OF CARE 160 MG/DL (70-110)
[2020-03-07 17:51] VITALS: BP 141/80
[2020-03-07] MEDS: ZIPRASIDONE HCL 60 MG CAPSULE PO SCH (17:57)
[2020-03-07] MEDS: LOPERAMIDE HCL 2 MG CAPSULE PO PRN ×2 (17:58→21:56)
[2020-03-07] MEDS: INSULIN LISPRO 100 UNITS/ML SQ PRN (18:00)
[2020-03-07] MEDS: DiphenhydrAMINE HCL 50 MG CAPSULE PO SCH (21:55)
[2020-03-07] MEDS: MAG HYDROX/AL HYDROX/SIMETH ES 30 ML SUSPENSION UDCUP PO PRN (22:12)
[2020-03-07 23:31] LABS: GLUCOMETER DEV NAME(LOC) BV3N.; GLUCOSE,POINT OF CARE 120 MG/DL (70-110)
[2020-03-08] MEDS: MAG HYDROX/AL HYDROX/SIMETH ES 30 ML SUSPENSION UDCUP PO PRN ×2 (03:12→22:17)
[2020-03-08 04:49] VITALS: BP 122/74
[2020-03-08 06:08] LABS: GLUCOMETER DEV NAME(LOC) BV3N.; GLUCOSE,POINT OF CARE 81 MG/DL (70-110)
[2020-03-08] MEDS: ZIPRASIDONE HCL 60 MG CAPSULE PO SCH (06:37)
[2020-03-08] MEDS: MetFORMIN HCL 500 MG TABLET PO SCH ×2 (06:37→16:17)
[2020-03-08] MEDS: GlipiZIDE 5 MG TABLET PO SCH (06:37)
[2020-03-08] MEDS: LEVOTHYROXINE SODIUM 125 MCG TABLET PO SCH (06:37)
[2020-03-08] MEDS: MULTIVITAMINS WITH MINERALS, THERAPEUTIC TABLET PO SCH (08:13)
[2020-03-08] MEDS: METOPROLOL SUCCINATE 25 MG ER TABLET PO SCH (08:13)
[2020-03-08] MEDS: LISINOPRIL 10 MG TABLET PO SCH ×2 (08:13→16:18)
[2020-03-08] MEDS: IBUPROFEN 400 MG TABLET PO PRN ×3 (08:15→22:52)
[2020-03-08 08:41] VITALS: BP 146/89
[2020-03-08] MEDS: INSULIN GLARGINE,HUM.REC.ANLOG 100 UNITS/ML SQ SCH ×2 (09:14→20:13)
[2020-03-08 09:27] LABS: GLUCOMETER DEV NAME(LOC) BV3N.; GLUCOSE,POINT OF CARE 126 MG/DL (70-110)
[2020-03-08] MEDS: INSULIN LISPRO 100 UNITS/ML SQ PRN ×2 (10:59→20:14)
[2020-03-08 11:11] LABS: GLUCOMETER DEV NAME(LOC) BV3N.; GLUCOSE,POINT OF CARE 272 MG/DL (70-110)
[2020-03-08 16:46] LABS: GLUCOMETER DEV NAME(LOC) BV3N.; GLUCOSE,POINT OF CARE 85 MG/DL (70-110)
[2020-03-08 17:02] VITALS: BP 140/72
[2020-03-08] MEDS: ZIPRASIDONE HCL 80 MG CAPSULE PO SCH (17:29)
[2020-03-08] MEDS: LOPERAMIDE HCL 2 MG CAPSULE PO PRN (17:35)
[2020-03-08] MEDS: ALBUTEROL SULFATE HFA 90 MCG/PUFF 8 GM INHALER IH PRN (19:03)
[2020-03-08 20:12] LABS: GLUCOMETER DEV NAME(LOC) BV3N.; GLUCOSE,POINT OF CARE 161 MG/DL (70-110)
[2020-03-08] MEDS: DiphenhydrAMINE HCL 50 MG CAPSULE PO SCH (20:15)
[2020-03-09 05:02] VITALS: BP 124/72
[2020-03-09 06:08] LABS: GLUCOMETER DEV NAME(LOC) BV3N.; GLUCOSE,POINT OF CARE 121 MG/DL (70-110)
[2020-03-09] MEDS: GlipiZIDE 10 MG TABLET PO SCH (06:33)
[2020-03-09] MEDS: LEVOTHYROXINE SODIUM 125 MCG TABLET PO SCH (06:33)
[2020-03-09] MEDS: ZIPRASIDONE HCL 80 MG CAPSULE PO SCH ×2 (06:33→16:15)
[2020-03-09] MEDS: MetFORMIN HCL 500 MG TABLET PO SCH ×2 (06:33→16:15)
[2020-03-09] MEDS: INSULIN LISPRO 100 UNITS/ML SQ PRN ×4 (06:36→20:49)
[2020-03-09] MEDS: SODIUM CHLORIDE 1 GM TABLET PO SCH ×3 (08:14→16:15)
[2020-03-09] MEDS: MULTIVITAMINS WITH MINERALS, THERAPEUTIC TABLET PO SCH (08:14)
[2020-03-09] MEDS: METOPROLOL SUCCINATE 25 MG ER TABLET PO SCH (08:17)
[2020-03-09] MEDS: LISINOPRIL 10 MG TABLET PO SCH ×2 (08:18→16:10)
[2020-03-09] MEDS: INSULIN GLARGINE,HUM.REC.ANLOG 100 UNITS/ML SQ SCH ×2 (08:26→21:47)
[2020-03-09] MEDS: IBUPROFEN 400 MG TABLET PO PRN ×2 (08:33→17:26)
[2020-03-09 11:05] LABS: GLUCOMETER DEV NAME(LOC) BV3N.; GLUCOSE,POINT OF CARE 180 MG/DL (70-110)
[2020-03-09 16:09] VITALS: BP 158/83
[2020-03-09 16:47] LABS: GLUCOMETER DEV NAME(LOC) BV3N.; GLUCOSE,POINT OF CARE 142 MG/DL (70-110)
[2020-03-09] MEDS: ALBUTEROL SULFATE HFA 90 MCG/PUFF 8 GM INHALER IH PRN (17:27)
[2020-03-09] MEDS: LORazepam 2 MG TABLET PO PRN (18:08)
[2020-03-09 19:07] VITALS: BP 142/62
[2020-03-09] MEDS: QUEtiapine FUMARATE 100 MG TABLET PO PRN (20:10)
[2020-03-09] MEDS: MAG HYDROX/AL HYDROX/SIMETH ES 30 ML SUSPENSION UDCUP PO PRN (20:41)
[2020-03-09] MEDS: DiphenhydrAMINE HCL 50 MG CAPSULE PO SCH (21:46)
[2020-03-09 22:11] LABS: GLUCOMETER DEV NAME(LOC) BV3N.; GLUCOSE,POINT OF CARE 177 MG/DL (70-110)
[2020-03-10 00:20] VITALS: BP 125/90
[2020-03-10] MEDS: ZOLPIDEM TARTRATE 10 MG TABLET PO PRN (00:35)
[2020-03-10] MEDS: LEVOTHYROXINE SODIUM 125 MCG TABLET PO SCH (06:26)
[2020-03-10] MEDS: MetFORMIN HCL 500 MG TABLET PO SCH ×2 (06:26→17:17)
[2020-03-10] MEDS: GlipiZIDE 10 MG TABLET PO SCH (06:27)
[2020-03-10] MEDS: ZIPRASIDONE HCL 80 MG CAPSULE PO SCH ×2 (06:27→17:17)
[2020-03-10 06:29] LABS: GLUCOMETER DEV NAME(LOC) BV3N.; GLUCOSE,POINT OF CARE 116 MG/DL (70-110)
[2020-03-10] MEDS: LORazepam 2 MG TABLET PO PRN ×2 (08:41→17:11)
[2020-03-10] MEDS: MULTIVITAMINS WITH MINERALS, THERAPEUTIC TABLET PO SCH (08:41)
[2020-03-10] MEDS: SODIUM CHLORIDE 1 GM TABLET PO SCH ×3 (08:41→17:20)
[2020-03-10] MEDS: METOPROLOL SUCCINATE 25 MG ER TABLET PO SCH (08:41)
[2020-03-10] MEDS: LISINOPRIL 10 MG TABLET PO SCH ×2 (08:41→17:12)
[2020-03-10] MEDS: QUEtiapine FUMARATE 100 MG TABLET PO PRN (08:42)
[2020-03-10] MEDS: INSULIN GLARGINE,HUM.REC.ANLOG 100 UNITS/ML SQ SCH ×2 (09:13→20:37)
[2020-03-10 11:36] LABS: GLUCOMETER DEV NAME(LOC) BV3N.; GLUCOSE,POINT OF CARE 129 MG/DL (70-110)
[2020-03-10] MEDS: INSULIN LISPRO 100 UNITS/ML SQ PRN ×2 (11:41→17:23)
[2020-03-10] MEDS ORDERED: ZIPR80CA2 PO (14:19)
[2020-03-10] MEDS ORDERED: DIPH50 PO (14:19)
[2020-03-10 16:34] VITALS: BP 139/68
[2020-03-10 17:15] LABS: GLUCOMETER DEV NAME(LOC) BV3N.; GLUCOSE,POINT OF CARE 179 MG/DL (70-110)
[2020-03-10] MEDS: IBUPROFEN 400 MG TABLET PO PRN (17:37)
[2020-03-10] MEDS: DiphenhydrAMINE HCL 50 MG CAPSULE PO SCH (20:27)
[2020-03-11] MEDS: ALBUTEROL SULFATE HFA 90 MCG/PUFF 8 GM INHALER IH PRN (00:35)
[2020-03-11 03:16] VITALS: BP 127/78
[2020-03-11 05:51] LABS: GLUCOMETER DEV NAME(LOC) BV3N.; GLUCOSE,POINT OF CARE 149 MG/DL (70-110)
[2020-03-11] MEDS: IBUPROFEN 400 MG TABLET PO PRN ×2 (06:23→12:25)
[2020-03-11 06:58] LABS: GLUCOMETER DEV NAME(LOC) BV3N.; GLUCOSE,POINT OF CARE 222 MG/DL (70-110)
[2020-03-11] MEDS: INSULIN LISPRO 100 UNITS/ML SQ PRN ×2 (07:01→11:39)
[2020-03-11] MEDS: LEVOTHYROXINE SODIUM 125 MCG TABLET PO SCH (07:05)
[2020-03-11] MEDS: GlipiZIDE 10 MG TABLET PO SCH (07:05)
[2020-03-11] MEDS: ZIPRASIDONE HCL 80 MG CAPSULE PO SCH (07:35)
[2020-03-11] MEDS: MetFORMIN HCL 500 MG TABLET PO SCH (07:36)
[2020-03-11] MEDS: SODIUM CHLORIDE 1 GM TABLET PO SCH ×2 (08:06→12:25)
[2020-03-11] MEDS: LISINOPRIL 10 MG TABLET PO SCH (08:06)
[2020-03-11] MEDS: METOPROLOL SUCCINATE 25 MG ER TABLET PO SCH (08:06)
[2020-03-11] MEDS: LORazepam 2 MG TABLET PO PRN (08:07)
[2020-03-11] MEDS: MULTIVITAMINS WITH MINERALS, THERAPEUTIC TABLET PO SCH (08:07)
[2020-03-11 08:08] VITALS: BP 133/59
[2020-03-11] MEDS: INSULIN GLARGINE,HUM.REC.ANLOG 100 UNITS/ML SQ SCH (08:57)
[2020-03-11 11:06] LABS: GLUCOMETER DEV NAME(LOC) BV3N.; GLUCOSE,POINT OF CARE 147 MG/DL (70-110)
[2020-03-11] MEDS ORDERED: METO25XL PO (12:04)
[2020-03-11] MEDS ORDERED: LISI-661 PO (12:04)
[2020-03-11] MEDS ORDERED: INSLAN SQ (12:06)
[2020-03-11] MEDS ORDERED: GLIP10 PO (13:14)
[2020-03-11] MEDS: MAG HYDROX/AL HYDROX/SIMETH ES 30 ML SUSPENSION UDCUP PO PRN (14:24)
[2020-03-14] MEDS ORDERED: MAG HYDROX/AL HYDROX/SIMETH ES 30 ML SUSPENSION UDCUP PO PRN (15:30)
[2020-03-14] MEDS ORDERED: OLANZapine 5 MG RAPDIS TABLET PO PRN (15:30)
[2020-03-14] MEDS ORDERED: ACETAMINOPHEN 325 MG TABLET PO PRN (15:30)
[2020-03-14] MEDS ORDERED: ZOLPIDEM TARTRATE 10 MG TABLET PO PRN (15:30)
[2020-03-14] MEDS ORDERED: CYANOCOBALAMIN 1,000 MCG/ML VIAL IM ONE (15:30)
[2020-03-14] MEDS ORDERED: MAGNESIUM HYDROXIDE SUSPENSION 30 ML UDCUP PO PRN (15:30)
[2020-03-14] MEDS ORDERED: LOPERAMIDE HCL 2 MG CAPSULE PO PRN (15:30)
[2020-03-14] MEDS ORDERED: PROMETHAZINE HCL 25 MG TABLET PO PRN (15:30)
[2020-03-14] MEDS ORDERED: GuaiFENesin/D-METHORPHAN [SUGAR-FREE] 200-20MG/10 ML SYRUP UDCUP PO PRN (15:30)
[2020-03-14] MEDS ORDERED: HydrOXYzine PAMOATE 50 MG CAPSULE PO PRN (15:30)
[2020-03-14] MEDS ORDERED: LORazepam 2 MG TABLET PO PRN (15:30)
[2020-03-14] MEDS ORDERED: THIAMINE HCL 100 MG TABLET PO SCH (17:00)
[2020-03-14] MEDS ORDERED: DIVALPROEX SODIUM 500 MG ER TABLET PO SCH (21:00)
[2020-03-14] MEDS ORDERED: OLANZapine 5 MG RAPDIS TABLET PO SCH (21:00)
[2020-03-14] MEDS ORDERED: DIVALPROEX SODIUM 250 MG ER TABLET PO SCH (21:00)
[2020-03-15 08:28] LABS: BASOPHILS % (AUTO) 0.8 % (0.0-2.0); EOSINOPHILS % (AUTO) 2.1 % (1.0-6.0); HEMATOCRIT 34.4 % (36-46); HEMOGLOBIN 11.4 g/dL (12.0-16.0); LYMPHOCYTES # (AUTO) 2.2 K/uL (1.0-4.8); MEAN CORPUSCULAR HEMOGLOBIN 30.5 pg (26.0-34.0); MEAN CORPUSCULAR VOLUME 92 fL (80-100); MONOCYTES # (AUTO) 0.7 K/uL (0.1-1.0); MONOCYTES % (AUTO) 6.8 % (2.0-9.0); NEUTROPHILS % (AUTO) 68.3 % (40.0-70.0); PLATELET COUNT (AUTO) 414 K/uL (150-450); RED BLOOD CELL COUNT(AUTO) 3.73 MIL/uL (4.00-5.20); RED CELL DISTRIBUTION WIDTH 15.2 % (11.5-14.5)
[2020-03-15] MEDS ORDERED: MULTIVITAMINS WITH MINERALS, THERAPEUTIC TABLET PO SCH (09:00)
[2020-03-15] MEDS ORDERED: FOLIC ACID 1 MG TABLET PO SCH (09:00)
[2020-03-15 09:16] LABS: HEMOGLOBIN A1C 12.4 % (3.8-5.6)
[2020-03-15 09:49] LABS: ALBUMIN 3.9 g/dL (3.4-5.0); BILIRUBIN,TOTAL 0.3 mg/dL (0.1-1.0); CALCIUM, TOTAL 9.2 mg/dL (8.8-10.5); CREATININE 1.1 mg/dL (0.60-1.30); FREE T4 (FREE THYROXINE) 0.67 ng/dL (0.76-1.46); POTASSIUM 4.7 mmol/L (3.5-5.1); THYROID STIMULATING HORMONE 31.85 uIU/mL (0.36-3.74); TOTAL PROTEIN, SERUM 7.5 g/dL (6.4-8.2)
== END 2020-03-11 14:45 | disposition home or self-care (01) | DRG 753 ==
LOC: B3A 18:45
PROVIDERS: ADMIT Psychiatry & Neurology Psychiatry; ATTEND Psychiatry & Neurology Psychiatry
DX: F31.64 Bipolar disorder, current episode mixed, severe, with psychotic features (principal); E11.65 Type 2 diabetes mellitus with hyperglycemia; R45.851 Suicidal ideations; D64.9 Anemia, unspecified; E03.9 Hypothyroidism, unspecified; E66.01 Morbid (severe) obesity due to excess calories; E78.5 Hyperlipidemia, unspecified; E87.1 Hypo-osmolality and hyponatremia; G89.29 Other chronic pain; I10 Essential (primary) hypertension; K21.9 Gastro-esophageal reflux disease without esophagitis; M19.90 Unspecified osteoarthritis, unspecified site; Z68.41 Body mass index [BMI] 40.0-44.9, adult; Z79.84 Long term (current) use of oral hypoglycemic drugs; Z79.899 Other long term (current) drug therapy; Z90.49 Acquired absence of other specified parts of digestive tract; Z90.710 Acquired absence of both cervix and uterus; Z91.19 Patient's noncompliance with other medical treatment and regimen
CPT/HCPCS: 83036; 83735; 84100; 84439; 84443; 85007; 86592; J1815; J3535

== ENCOUNTER 2020-03-14 12:30 | Inpatient (IN) | payer MEDICAID, OTHER ==
[~2020-03-14] VITALS: Ht 152.4 cm; Wt 123.3 kg
[~2020-03-14 12:30] MED LIST changes: -AMLO2.5T4 PO; +DIPH50 PO; -DIVA250T45 PO; +GLIP10 PO; -GLIP5TAB3 PO; +INSLAN SQ; -LEVO100T14 PO; +LEVO125 PO; +LISI-661 PO; -LORA0.5T83 PO; +METO25XL PO; -QUET400T5 PO; +ZIPR80CA2 PO
[2020-03-14 13:09] LABS: BASOPHILS % (AUTO) 0.4 % (0.0-2.0); HEMATOCRIT 32.5 % (36-46); HEMOGLOBIN 10.7 g/dL (12.0-16.0); LYMPHOCYTES # (AUTO) 3.3 K/uL (1.0-4.8); LYMPHOCYTES % (AUTO) 29.5 % (22.0-44.0); MEAN CORPUSCULAR HEMOGLOBIN 30.2 pg (26.0-34.0); MEAN CORPUSCULAR HGB CONC 32.9 G/dL (31.0-37.0); MEAN CORPUSCULAR VOLUME 92 fL (80-100); MONOCYTES # (AUTO) 0.8 K/uL (0.1-1.0); MONOCYTES % (AUTO) 7.2 % (2.0-9.0); NEUTROPHILS # (AUTO) 6.8 K/uL (1.8-7.7); NEUTROPHILS % (AUTO) 60.9 % (40.0-70.0); PLATELET COUNT (AUTO) 395 K/uL (150-450); RED BLOOD CELL COUNT(AUTO) 3.55 MIL/uL (4.00-5.20); RED CELL DISTRIBUTION WIDTH 15.5 % (11.5-14.5)
[2020-03-14 13:40] LABS: ANION GAP 7 mmol/L (8-16); CALCIUM, TOTAL 8.4 mg/dL (8.8-10.5); CARBON DIOXIDE 27 mmol/L (22-29); CHLORIDE 92 mmol/L (98-107); CREATININE 1.05 mg/dL (0.60-1.30); GLOMERULAR FILTR. RATE CALC 53 mL/min (>60); GLUCOSE,RANDOM 225 mg/dL (70-110); POTASSIUM 4.3 mmol/L (3.5-5.1); SODIUM SERUM 126 mmol/L (136-145); UREA NITROGEN, BLOOD 19 mg/dL (7-18)
[2020-03-14 13:47] LABS: ALANINE AMINOTRANSFERASE 31 U/L (12-78); ALBUMIN 3.6 g/dL (3.4-5.0); ALKALINE PHOSPHATASE 67 U/L (46-116); ASPARTATE AMINOTRANSFERASE 23 U/L (15-37); BILIRUBIN,TOTAL 0.3 mg/dL (0.1-1.0); TOTAL PROTEIN, SERUM 7.3 g/dL (6.4-8.2)
[2020-03-14 14:17] LABS: GLUCOSE,POINT OF CARE 229 MG/DL (70-110)
[2020-03-14] MEDS ORDERED: LORazepam 2 MG TABLET PO ONE (15:00)
[2020-03-14] MEDS ORDERED: HALOPERIDOL 5 MG TABLET PO ONE (15:00)
[2020-03-14] MEDS ORDERED: DiphenhydrAMINE HCL 50 MG/ML VIAL IM ONE (16:00)
[2020-03-14] MEDS ORDERED: LORazepam 2 MG/ML VIAL IM ONE (16:00)
[2020-03-14] MEDS ORDERED: HALOPERIDOL LACTATE 5 MG/ML VIAL IM ONE (16:00)
[2020-03-14 16:36] LABS: GLUCOSE,POINT OF CARE 248 MG/DL (70-110)
[2020-03-14] MEDS ORDERED: INSULIN REGULAR, HUMAN 100 UNITS/ML SQ ONE (17:30)
[2020-03-14] MEDS ORDERED: LISI-660 PO (17:45)
[2020-03-14] MEDS ORDERED: LOPERAMIDE HCL 2 MG CAPSULE PO PRN (18:30)
[2020-03-14] MEDS ORDERED: MAGNESIUM HYDROXIDE SUSPENSION 30 ML UDCUP PO PRN (18:30)
[2020-03-14] MEDS ORDERED: ZOLPIDEM TARTRATE 10 MG TABLET PO PRN (18:30)
[2020-03-14] MEDS: PALIPERIDONE PALMITATE 234 MG/1.5 ML SYRINGE IM ONE ×2 (18:30→19:58)
[2020-03-14] MEDS ORDERED: PALIPERIDONE 1.5 MG ER TABLET PO PRN (18:30)
[2020-03-14 18:32] LABS: GLUCOMETER DEV NAME(LOC) BV3N.; GLUCOSE,POINT OF CARE 223 MG/DL (70-110)
[2020-03-14 18:54] VITALS: BP 124/63
[2020-03-14] MEDS ORDERED: GLUCAGON,HUMAN RECOMBINANT 1 MG VIAL IM PRN (19:30)
[2020-03-14] MEDS: DIVALPROEX SODIUM 500 MG ER TABLET PO SCH (20:41)
[2020-03-14] MEDS: PALIPERIDONE 3 MG ER TABLET PO SCH (20:41)
[2020-03-14 20:59] LABS: GLUCOMETER DEV NAME(LOC) BV3N.; GLUCOSE,POINT OF CARE 175 MG/DL (70-110)
[2020-03-14] MEDS: INSULIN LISPRO 100 UNITS/ML SQ PRN (21:07)
[2020-03-15 01:18] VITALS: BP 122/65
[2020-03-15 02:35] VITALS: BP 128/66
[2020-03-15] MEDS: ACETAMINOPHEN 325 MG TABLET PO PRN ×5 (02:41→22:46)
[2020-03-15 06:18] VITALS: BP 118/62
[2020-03-15 06:49] LABS: GLUCOMETER DEV NAME(LOC) BV3N.; GLUCOSE,POINT OF CARE 221 MG/DL (70-110)
[2020-03-15] MEDS: NALTREXONE HCL 50 MG TABLET PO SCH ×2 (08:12→09:00)
[2020-03-15 08:24] VITALS: BP 123/52
[2020-03-15] MEDS: LORazepam 2 MG TABLET PO PRN (09:55)
[2020-03-15] MEDS: INSULIN LISPRO 100 UNITS/ML SQ PRN ×3 (11:11→21:12)
[2020-03-15 11:18] LABS: GLUCOMETER DEV NAME(LOC) BV3N.; GLUCOSE,POINT OF CARE 202 MG/DL (70-110)
[2020-03-15] MEDS: MetFORMIN HCL 500 MG TABLET PO SCH (16:48)
[2020-03-15 16:58] LABS: GLUCOMETER DEV NAME(LOC) BV3N.; GLUCOSE,POINT OF CARE 286 MG/DL (70-110)
[2020-03-15 17:13] VITALS: BP 144/73
[2020-03-15] MEDS: DIVALPROEX SODIUM 500 MG ER TABLET PO SCH ×2 (20:51→21:00)
[2020-03-15] MEDS: PALIPERIDONE 3 MG ER TABLET PO SCH ×2 (20:51→21:00)
[2020-03-15 21:09] LABS: GLUCOMETER DEV NAME(LOC) BV3N.; GLUCOSE,POINT OF CARE 235 MG/DL (70-110)
[2020-03-15] MEDS: INSULIN GLARGINE,HUM.REC.ANLOG 100 UNITS/ML SQ SCH (21:11)
[2020-03-16 04:41] VITALS: BP 135/65
[2020-03-16] MEDS: ACETAMINOPHEN 325 MG TABLET PO PRN ×3 (05:41→16:55)
[2020-03-16 05:49] LABS: GLUCOMETER DEV NAME(LOC) BV3N.; GLUCOSE,POINT OF CARE 275 MG/DL (70-110)
[2020-03-16] MEDS: LEVOTHYROXINE SODIUM 125 MCG TABLET PO SCH (06:10)
[2020-03-16] MEDS: GlipiZIDE 10 MG TABLET PO SCH (06:10)
[2020-03-16] MEDS: MetFORMIN HCL 500 MG TABLET PO SCH ×2 (06:10→16:21)
[2020-03-16] MEDS: INSULIN LISPRO 100 UNITS/ML SQ PRN ×4 (06:15→20:18)
[2020-03-16 08:20] VITALS: BP 160/70
[2020-03-16] MEDS: LISINOPRIL 5 MG TABLET PO SCH (08:39)
[2020-03-16] MEDS: METOPROLOL SUCCINATE 25 MG ER TABLET PO SCH (08:39)
[2020-03-16] MEDS: NALTREXONE HCL 50 MG TABLET PO SCH (08:39)
[2020-03-16] MEDS: LORazepam 2 MG TABLET PO PRN (08:40)
[2020-03-16] MEDS: INSULIN GLARGINE,HUM.REC.ANLOG 100 UNITS/ML SQ SCH ×2 (08:59→20:19)
[2020-03-16 11:49] LABS: GLUCOMETER DEV NAME(LOC) BV3N.; GLUCOSE,POINT OF CARE 243 MG/DL (70-110)
[2020-03-16] MEDS ORDERED: PALIPERIDONE PALMITATE 234 MG/1.5 ML SYRINGE IM ONE ×2 (14:00→16:00)
[2020-03-16 16:00] VITALS: BP 138/60
[2020-03-16 16:08] VITALS: BP 138/60
[2020-03-16 17:24] LABS: GLUCOMETER DEV NAME(LOC) BV3N.; GLUCOSE,POINT OF CARE 258 MG/DL (70-110)
[2020-03-16] MEDS ORDERED: ALBUTEROL SULFATE HFA 90 MCG/PUFF 8 GM INHALER IH PRN (18:00)
[2020-03-16] MEDS: IBUPROFEN 400 MG TABLET PO PRN (20:05)
[2020-03-16 20:22] LABS: GLUCOMETER DEV NAME(LOC) BV3N.; GLUCOSE,POINT OF CARE 242 MG/DL (70-110)
[2020-03-16] MEDS: PALIPERIDONE 3 MG ER TABLET PO SCH (21:00)
[2020-03-16] MEDS: DIVALPROEX SODIUM 500 MG ER TABLET PO SCH (21:00)
[2020-03-17] VITALS: BP 127/72
[2020-03-17] MEDS: ACETAMINOPHEN 325 MG TABLET PO PRN (00:07)
[2020-03-17 01:17] VITALS: BP 127/72
[2020-03-17 06:12] LABS: GLUCOMETER DEV NAME(LOC) BV3N.; GLUCOSE,POINT OF CARE 224 MG/DL (70-110)
[2020-03-17] MEDS: MAG HYDROX/AL HYDROX/SIMETH ES 30 ML SUSPENSION UDCUP PO PRN (06:27)
[2020-03-17] MEDS: MetFORMIN HCL 500 MG TABLET PO SCH ×2 (06:59→16:41)
[2020-03-17] MEDS: GlipiZIDE 10 MG TABLET PO SCH (06:59)
[2020-03-17] MEDS: LEVOTHYROXINE SODIUM 125 MCG TABLET PO SCH (06:59)
[2020-03-17] MEDS: INSULIN LISPRO 100 UNITS/ML SQ PRN ×3 (07:03→17:31)
[2020-03-17 08:24] VITALS: BP 129/71
[2020-03-17] MEDS: LISINOPRIL 5 MG TABLET PO SCH (08:42)
[2020-03-17] MEDS: NALTREXONE HCL 50 MG TABLET PO SCH (08:42)
[2020-03-17] MEDS: LORazepam 2 MG TABLET PO PRN ×2 (08:43→16:42)
[2020-03-17] MEDS: METOPROLOL SUCCINATE 25 MG ER TABLET PO SCH (08:43)
[2020-03-17] MEDS: INSULIN GLARGINE,HUM.REC.ANLOG 100 UNITS/ML SQ SCH ×2 (08:53→20:42)
[2020-03-17 11:02] LABS: GLUCOMETER DEV NAME(LOC) BV3N.; GLUCOSE,POINT OF CARE 220 MG/DL (70-110)
[2020-03-17 12:00] VITALS: BP 134/90
[2020-03-17] MEDS: IBUPROFEN 400 MG TABLET PO PRN ×2 (13:29→20:13)
[2020-03-17] MEDS ORDERED: NALT50TA PO (15:30)
[2020-03-17] MEDS ORDERED: DIVA500T52 PO (15:30)
[2020-03-17] MEDS ORDERED: PALI117D IM (15:30)
[2020-03-17 16:00] VITALS: BP 143/92
[2020-03-17 17:07] LABS: GLUCOMETER DEV NAME(LOC) BV3N.; GLUCOSE,POINT OF CARE 279 MG/DL (70-110)
[2020-03-17] MEDS: DIVALPROEX SODIUM 500 MG ER TABLET PO SCH (20:12)
[2020-03-17] MEDS: PALIPERIDONE 3 MG ER TABLET PO SCH (20:21)
[2020-03-17 20:32] LABS: GLUCOMETER DEV NAME(LOC) BV3N.; GLUCOSE,POINT OF CARE 205 MG/DL (70-110)
[2020-03-18 00:54] VITALS: BP 120/71
[2020-03-18] MEDS: MAG HYDROX/AL HYDROX/SIMETH ES 30 ML SUSPENSION UDCUP PO PRN (02:43)
[2020-03-18] MEDS: IBUPROFEN 400 MG TABLET PO PRN (03:27)
[2020-03-18] MEDS: INSULIN LISPRO 100 UNITS/ML SQ PRN ×2 (06:41→18:06)
[2020-03-18] MEDS: MetFORMIN HCL 500 MG TABLET PO SCH ×2 (06:42→16:56)
[2020-03-18] MEDS: GlipiZIDE 10 MG TABLET PO SCH (06:42)
[2020-03-18] MEDS: LEVOTHYROXINE SODIUM 125 MCG TABLET PO SCH (06:42)
[2020-03-18 07:14] LABS: GLUCOMETER DEV NAME(LOC) BV3N.; GLUCOSE,POINT OF CARE 269 MG/DL (70-110)
[2020-03-18] MEDS: LISINOPRIL 5 MG TABLET PO SCH (08:05)
[2020-03-18] MEDS: METOPROLOL SUCCINATE 25 MG ER TABLET PO SCH (08:05)
[2020-03-18] MEDS: NALTREXONE HCL 50 MG TABLET PO SCH (08:08)
[2020-03-18 08:20] VITALS: BP 148/75
[2020-03-18 08:38] LABS: GLUCOMETER DEV NAME(LOC) BV3N.; GLUCOSE,POINT OF CARE 327 MG/DL (70-110)
[2020-03-18] MEDS ORDERED: PALIPERIDONE PALMITATE 156 MG/ML SYRINGE IM ONE (09:00)
[2020-03-18] MEDS: INSULIN GLARGINE,HUM.REC.ANLOG 100 UNITS/ML SQ SCH ×2 (09:15→21:00)
[2020-03-18] MEDS ORDERED: HALOPERIDOL LACTATE 5 MG/ML VIAL IM ONE ×2 (13:45→21:45)
[2020-03-18] MEDS ORDERED: DiphenhydrAMINE HCL 50 MG/ML VIAL IM ONE ×2 (13:45→21:45)
[2020-03-18] MEDS ORDERED: LORazepam 2 MG/ML VIAL IM ONE ×2 (13:45→21:45)
[2020-03-18 16:07] VITALS: BP 134/68
[2020-03-18 18:08] LABS: GLUCOMETER DEV NAME(LOC) BV3N.; GLUCOSE,POINT OF CARE 175 MG/DL (70-110)
[2020-03-18] MEDS: LITHIUM CARBONATE 300 MG CAPSULE PO SCH (21:00)
[2020-03-18] MEDS: PALIPERIDONE 3 MG ER TABLET PO SCH (21:00)
[2020-03-18] MEDS: DIVALPROEX SODIUM 500 MG ER TABLET PO SCH (21:00)
[2020-03-19] MEDS: GlipiZIDE 10 MG TABLET PO SCH (06:30)
[2020-03-19] MEDS: LEVOTHYROXINE SODIUM 125 MCG TABLET PO SCH (06:30)
[2020-03-19] MEDS: MetFORMIN HCL 500 MG TABLET PO SCH ×2 (06:43→17:35)
[2020-03-19 08:15] VITALS: BP 114/70
[2020-03-19] MEDS: LISINOPRIL 5 MG TABLET PO SCH (08:24)
[2020-03-19] MEDS: NALTREXONE HCL 50 MG TABLET PO SCH (08:24)
[2020-03-19] MEDS: METOPROLOL SUCCINATE 25 MG ER TABLET PO SCH (08:24)
[2020-03-19] MEDS: INSULIN GLARGINE,HUM.REC.ANLOG 100 UNITS/ML SQ SCH ×2 (08:48→21:00)
[2020-03-19] MEDS: LORazepam 2 MG TABLET PO PRN (09:14)
[2020-03-19] MEDS: INSULIN LISPRO 100 UNITS/ML SQ PRN ×2 (11:46→17:49)
[2020-03-19 12:03] LABS: GLUCOMETER DEV NAME(LOC) BV3N.; GLUCOSE,POINT OF CARE 244 MG/DL (70-110)
[2020-03-19 16:00] VITALS: BP 130/74
[2020-03-19 16:56] LABS: GLUCOMETER DEV NAME(LOC) BV3N.; GLUCOSE,POINT OF CARE 241 MG/DL (70-110)
[2020-03-19] MEDS: IBUPROFEN 400 MG TABLET PO PRN (17:35)
[2020-03-19] MEDS ORDERED: DiphenhydrAMINE HCL 50 MG/ML VIAL IM ONE (18:45)
[2020-03-19] MEDS ORDERED: LORazepam 2 MG/ML VIAL IM ONE (18:45)
[2020-03-19] MEDS ORDERED: LORazepam 2 MG/ML VIAL ONE (18:45)
[2020-03-19] MEDS ORDERED: HALOPERIDOL LACTATE 5 MG/ML VIAL ONE (18:45)
[2020-03-19] MEDS ORDERED: HALOPERIDOL LACTATE 5 MG/ML VIAL IM ONE (18:45)
[2020-03-19] MEDS ORDERED: DiphenhydrAMINE HCL 50 MG/ML VIAL ONE (18:45)
[2020-03-19 20:21] LABS: GLUCOMETER DEV NAME(LOC) BV3N.; GLUCOSE,POINT OF CARE 252 MG/DL (70-110)
[2020-03-19] MEDS: DIVALPROEX SODIUM 500 MG ER TABLET PO SCH (21:00)
[2020-03-19] MEDS: LITHIUM CARBONATE 300 MG CAPSULE PO SCH (21:00)
[2020-03-19] MEDS: PALIPERIDONE 3 MG ER TABLET PO SCH (21:00)
[2020-03-20] VITALS (7 sets, daily range): BP systolic 127–142; BP diastolic 54–79
[2020-03-20 06:21] LABS: GLUCOMETER DEV NAME(LOC) BV3N.; GLUCOSE,POINT OF CARE 234 MG/DL (70-110)
[2020-03-20] MEDS: GlipiZIDE 10 MG TABLET PO SCH (06:48)
[2020-03-20] MEDS: LEVOTHYROXINE SODIUM 125 MCG TABLET PO SCH (06:49)
[2020-03-20] MEDS: MetFORMIN HCL 500 MG TABLET PO SCH ×2 (06:49→17:14)
[2020-03-20] MEDS: NALTREXONE HCL 50 MG TABLET PO SCH (08:33)
[2020-03-20] MEDS: INSULIN GLARGINE,HUM.REC.ANLOG 100 UNITS/ML SQ SCH ×2 (08:33→21:00)
[2020-03-20] MEDS: LISINOPRIL 5 MG TABLET PO SCH (08:33)
[2020-03-20] MEDS: METOPROLOL SUCCINATE 25 MG ER TABLET PO SCH (08:33)
[2020-03-20] MEDS ORDERED: PALIPERIDONE PALMITATE 156 MG/ML SYRINGE IM ONE ×2 (09:00)
[2020-03-20 17:00] LABS: GLUCOMETER DEV NAME(LOC) BV3N.; GLUCOSE,POINT OF CARE 289 MG/DL (70-110)
[2020-03-20] MEDS: LORazepam 2 MG TABLET PO PRN (17:14)
[2020-03-20] MEDS: IBUPROFEN 400 MG TABLET PO PRN (17:14)
[2020-03-20] MEDS ORDERED: LITH450CRT PO (18:13)
[2020-03-20] MEDS: PALIPERIDONE 3 MG ER TABLET PO SCH (21:00)
[2020-03-20] MEDS: LITHIUM CARBONATE 300 MG CAPSULE PO SCH (21:00)
[2020-03-20] MEDS: DIVALPROEX SODIUM 500 MG ER TABLET PO SCH (21:00)
[2020-03-21 00:08] VITALS: BP 138/80
[2020-03-21] MEDS: IBUPROFEN 400 MG TABLET PO PRN (00:39)
[2020-03-21 06:11] LABS: GLUCOMETER DEV NAME(LOC) BV3N.; GLUCOSE,POINT OF CARE 285 MG/DL (70-110)
[2020-03-21] MEDS: GlipiZIDE 10 MG TABLET PO SCH ×2 (06:30→06:36)
[2020-03-21] MEDS: LEVOTHYROXINE SODIUM 125 MCG TABLET PO SCH (06:36)
[2020-03-21] MEDS: MetFORMIN HCL 500 MG TABLET PO SCH ×3 (06:36→16:51)
[2020-03-21 08:54] VITALS: BP 132/97
[2020-03-21] MEDS: METOPROLOL SUCCINATE 25 MG ER TABLET PO SCH (08:58)
[2020-03-21] MEDS: NALTREXONE HCL 50 MG TABLET PO SCH (08:58)
[2020-03-21] MEDS: LISINOPRIL 5 MG TABLET PO SCH (08:58)
[2020-03-21] MEDS: INSULIN GLARGINE,HUM.REC.ANLOG 100 UNITS/ML SQ SCH ×2 (09:06→20:57)
[2020-03-21] MEDS: LORazepam 2 MG TABLET PO PRN (09:12)
[2020-03-21] MEDS: INSULIN LISPRO 100 UNITS/ML SQ PRN ×3 (11:47→20:57)
[2020-03-21] MEDS ORDERED: HALOPERIDOL LACTATE 5 MG/ML VIAL IM ONE (14:30)
[2020-03-21] MEDS ORDERED: LORazepam 2 MG/ML VIAL IM ONE (14:30)
[2020-03-21] MEDS ORDERED: DiphenhydrAMINE HCL 50 MG/ML VIAL IM ONE (14:30)
[2020-03-21 17:18] VITALS: BP 120/68
[2020-03-21 17:46] LABS: GLUCOMETER DEV NAME(LOC) BV3N.; GLUCOSE,POINT OF CARE 333 MG/DL (70-110)
[2020-03-21] MEDS: OLANZapine 5 MG RAPDIS TABLET PO SCH (20:37)
[2020-03-21 20:38] LABS: GLUCOMETER DEV NAME(LOC) BV3N.; GLUCOSE,POINT OF CARE 272 MG/DL (70-110)
[2020-03-21] MEDS: LITHIUM CARBONATE 300 MG CAPSULE PO SCH (20:59)
[2020-03-21] MEDS: DIVALPROEX SODIUM 500 MG ER TABLET PO SCH (20:59)
[2020-03-21] MEDS: MAG HYDROX/AL HYDROX/SIMETH ES 30 ML SUSPENSION UDCUP PO PRN (23:09)
[2020-03-22] MEDS: IBUPROFEN 400 MG TABLET PO PRN ×2 (00:52→19:12)
[2020-03-22 04:42] VITALS: BP 148/78
[2020-03-22 06:08] LABS: GLUCOMETER DEV NAME(LOC) BV3N.; GLUCOSE,POINT OF CARE 298 MG/DL (70-110)
[2020-03-22] MEDS: INSULIN LISPRO 100 UNITS/ML SQ PRN ×4 (06:13→21:41)
[2020-03-22] MEDS: MetFORMIN HCL 500 MG TABLET PO SCH ×2 (06:40→16:37)
[2020-03-22] MEDS: LEVOTHYROXINE SODIUM 125 MCG TABLET PO SCH (06:40)
[2020-03-22] MEDS: GlipiZIDE 10 MG TABLET PO SCH (06:40)
[2020-03-22] MEDS ORDERED: LORazepam 2 MG/ML VIAL ONE (07:21)
[2020-03-22] MEDS ORDERED: DiphenhydrAMINE HCL 50 MG/ML VIAL ONE (07:22)
[2020-03-22] MEDS ORDERED: HALOPERIDOL LACTATE 5 MG/ML VIAL ONE (07:22)
[2020-03-22] MEDS ORDERED: HALOPERIDOL LACTATE 5 MG/ML VIAL IM ONE ×3 (07:30→19:00)
[2020-03-22] MEDS ORDERED: LORazepam 2 MG/ML VIAL IM ONE ×3 (07:30→19:00)
[2020-03-22] MEDS ORDERED: DiphenhydrAMINE HCL 50 MG/ML VIAL IM ONE ×3 (07:30→19:00)
[2020-03-22 08:29] LABS: HEMATOCRIT 34.7 % (36-46); HEMOGLOBIN 11.2 g/dL (12.0-16.0); MEAN CORPUSCULAR HEMOGLOBIN 29.8 pg (26.0-34.0); MEAN CORPUSCULAR HGB CONC 32.2 G/dL (31.0-37.0); MEAN CORPUSCULAR VOLUME 92 fL (80-100); PLATELET COUNT (AUTO) 410 K/uL (150-450); RED BLOOD CELL COUNT(AUTO) 3.76 MIL/uL (4.00-5.20); RED CELL DISTRIBUTION WIDTH 15.4 % (11.5-14.5)
[2020-03-22] MEDS: NALTREXONE HCL 50 MG TABLET PO SCH (08:59)
[2020-03-22] MEDS: LISINOPRIL 5 MG TABLET PO SCH (08:59)
[2020-03-22] MEDS: METOPROLOL SUCCINATE 25 MG ER TABLET PO SCH (08:59)
[2020-03-22] MEDS: INSULIN GLARGINE,HUM.REC.ANLOG 100 UNITS/ML SQ SCH ×2 (09:01→21:39)
[2020-03-22 09:05] LABS: HEMOGLOBIN A1C 12.1 % (3.8-5.6)
[2020-03-22 09:31] LABS: CALCIUM, TOTAL 9.4 mg/dL (8.8-10.5); CREATININE 1.1 mg/dL (0.60-1.30); MAGNESIUM 2.1 mg/dL (1.80-2.40); PHOSPHORUS 3.5 mg/dL (2.5-4.9); POTASSIUM 5.2 mmol/L (3.5-5.1)
[2020-03-22 09:33] LABS: % IRON SATURATION 7.4 % (22-44)
[2020-03-22 09:48] LABS: BAND NEUTROPHILS % (MANUAL) 3 % (0-5); EOSINOPHILS % (MANUAL) 2 % (1-6); LYMPHOCYTES % (MANUAL) 27 % (22-44); MONOCYTES % (MANUAL) 4 % (2-9); SEGMENTED NEUTROPHILS % 64 % (40-70)
[2020-03-22 11:31] LABS: GLUCOMETER DEV NAME(LOC) BV3N.; GLUCOSE,POINT OF CARE 222 MG/DL (70-110)
[2020-03-22 16:24] VITALS: BP 128/71
[2020-03-22 16:26] LABS: GLUCOMETER DEV NAME(LOC) BV3N.; GLUCOSE,POINT OF CARE 284 MG/DL (70-110)
[2020-03-22 20:32] LABS: GLUCOMETER DEV NAME(LOC) BV3N.; GLUCOSE,POINT OF CARE 227 MG/DL (70-110)
[2020-03-22] MEDS: OLANZapine 5 MG RAPDIS TABLET PO SCH (21:00)
[2020-03-22] MEDS: DIVALPROEX SODIUM 500 MG ER TABLET PO SCH (21:34)
[2020-03-22] MEDS: MAG HYDROX/AL HYDROX/SIMETH ES 30 ML SUSPENSION UDCUP PO PRN (21:34)
[2020-03-22] MEDS: LITHIUM CARBONATE 300 MG CAPSULE PO SCH (21:34)
[2020-03-22] MEDS ORDERED: SODIUM POLYSTYRENE SULFONATE 15 GM/60 ML SUSPENSION BOTTLE PO ONE (22:45)
[2020-03-23 01:23] VITALS: BP 133/78
[2020-03-23] MEDS: IBUPROFEN 400 MG TABLET PO PRN (02:27)
[2020-03-23] MEDS: INSULIN LISPRO 100 UNITS/ML SQ PRN ×4 (06:20→20:22)
[2020-03-23 06:26] LABS: GLUCOMETER DEV NAME(LOC) BV3N.; GLUCOSE,POINT OF CARE 183 MG/DL (70-110)
[2020-03-23] MEDS: LEVOTHYROXINE SODIUM 125 MCG TABLET PO SCH (06:51)
[2020-03-23] MEDS: GlipiZIDE 10 MG TABLET PO SCH (06:51)
[2020-03-23] MEDS: MetFORMIN HCL 500 MG TABLET PO SCH ×2 (07:13→16:47)
[2020-03-23] MEDS: METOPROLOL SUCCINATE 25 MG ER TABLET PO SCH (08:16)
[2020-03-23] MEDS: NALTREXONE HCL 50 MG TABLET PO SCH (08:16)
[2020-03-23] MEDS: LISINOPRIL 5 MG TABLET PO SCH (08:16)
[2020-03-23] MEDS: SODIUM CHLORIDE 1 GM TABLET PO SCH ×3 (08:16→17:00)
[2020-03-23 08:19] LABS: BASOPHILS % (AUTO) 0.8 % (0.0-2.0); EOSINOPHILS % (AUTO) 3.2 % (1.0-6.0); HEMATOCRIT 34.6 % (36-46); HEMOGLOBIN 11.1 g/dL (12.0-16.0); LYMPHOCYTES # (AUTO) 2.6 K/uL (1.0-4.8); LYMPHOCYTES % (AUTO) 27.4 % (22.0-44.0); MEAN CORPUSCULAR HEMOGLOBIN 29.6 pg (26.0-34.0); MEAN CORPUSCULAR HGB CONC 32.1 G/dL (31.0-37.0); MEAN CORPUSCULAR VOLUME 92 fL (80-100); MONOCYTES # (AUTO) 0.5 K/uL (0.1-1.0); MONOCYTES % (AUTO) 5.4 % (2.0-9.0); NEUTROPHILS # (AUTO) 6.1 K/uL (1.8-7.7); NEUTROPHILS % (AUTO) 63.2 % (40.0-70.0); PLATELET COUNT (AUTO) 415 K/uL (150-450); RED BLOOD CELL COUNT(AUTO) 3.75 MIL/uL (4.00-5.20); RED CELL DISTRIBUTION WIDTH 15.7 % (11.5-14.5)
[2020-03-23 08:31] LABS: ALBUMIN 3.9 g/dL (3.4-5.0); BILIRUBIN,TOTAL 0.3 mg/dL (0.1-1.0); CALCIUM, TOTAL 9.2 mg/dL (8.8-10.5); CREATININE 1.05 mg/dL (0.60-1.30); POTASSIUM 4.7 mmol/L (3.5-5.1)
[2020-03-23] MEDS: INSULIN GLARGINE,HUM.REC.ANLOG 100 UNITS/ML SQ SCH ×2 (08:54→20:20)
[2020-03-23 11:12] LABS: GLUCOMETER DEV NAME(LOC) BV3N.; GLUCOSE,POINT OF CARE 216 MG/DL (70-110)
[2020-03-23] MEDS ORDERED: LORazepam 2 MG/ML VIAL IM ONE (15:45)
[2020-03-23] MEDS ORDERED: DiphenhydrAMINE HCL 50 MG/ML VIAL IM ONE (15:45)
[2020-03-23] MEDS ORDERED: HALOPERIDOL LACTATE 5 MG/ML VIAL IM ONE (15:45)
[2020-03-23 16:55] VITALS: BP 128/64
[2020-03-23 17:04] LABS: GLUCOMETER DEV NAME(LOC) BV3N.; GLUCOSE,POINT OF CARE 281 MG/DL (70-110)
[2020-03-23] MEDS: MAG HYDROX/AL HYDROX/SIMETH ES 30 ML SUSPENSION UDCUP PO PRN ×2 (18:30→23:55)
[2020-03-23] MEDS: OLANZapine 5 MG RAPDIS TABLET PO SCH (20:08)
[2020-03-23 20:18] LABS: GLUCOMETER DEV NAME(LOC) BV3N.; GLUCOSE,POINT OF CARE 262 MG/DL (70-110)
[2020-03-23] MEDS: LITHIUM CARBONATE 300 MG CAPSULE PO SCH (20:23)
[2020-03-23] MEDS: DIVALPROEX SODIUM 500 MG ER TABLET PO SCH (20:23)
[2020-03-24] VITALS: BP 129/79
[2020-03-24] MEDS: IBUPROFEN 400 MG TABLET PO PRN ×2 (00:48→10:44)
[2020-03-24] MEDS: LEVOTHYROXINE SODIUM 125 MCG TABLET PO SCH (06:33)
[2020-03-24] MEDS: GlipiZIDE 10 MG TABLET PO SCH (06:33)
[2020-03-24] MEDS: MetFORMIN HCL 500 MG TABLET PO SCH ×2 (06:33→16:19)
[2020-03-24 08:20] VITALS: BP 138/74
[2020-03-24] MEDS: LISINOPRIL 5 MG TABLET PO SCH (08:36)
[2020-03-24] MEDS: METOPROLOL SUCCINATE 25 MG ER TABLET PO SCH (08:36)
[2020-03-24] MEDS: SODIUM CHLORIDE 1 GM TABLET PO SCH ×2 (08:36→16:19)
[2020-03-24] MEDS: NALTREXONE HCL 50 MG TABLET PO SCH (08:36)
[2020-03-24] MEDS: INSULIN GLARGINE,HUM.REC.ANLOG 100 UNITS/ML SQ SCH ×2 (08:52→20:44)
[2020-03-24] MEDS: LORazepam 2 MG TABLET PO PRN ×2 (09:02→16:19)
[2020-03-24 10:02] LABS: GLUCOMETER DEV NAME(LOC) BV3N.; GLUCOSE,POINT OF CARE 300 MG/DL (70-110)
[2020-03-24] MEDS: INSULIN LISPRO 100 UNITS/ML SQ PRN ×3 (11:44→20:45)
[2020-03-24 12:14] LABS: GLUCOMETER DEV NAME(LOC) BV3N.; GLUCOSE,POINT OF CARE 262 MG/DL (70-110)
[2020-03-24 16:10] VITALS: BP 138/70
[2020-03-24 16:28] LABS: GLUCOMETER DEV NAME(LOC) BV3N.; GLUCOSE,POINT OF CARE 261 MG/DL (70-110)
[2020-03-24 20:23] LABS: GLUCOMETER DEV NAME(LOC) BV3N.; GLUCOSE,POINT OF CARE 219 MG/DL (70-110)
[2020-03-24] MEDS: DIVALPROEX SODIUM 500 MG ER TABLET PO SCH (21:00)
[2020-03-24] MEDS: LITHIUM CARBONATE 300 MG CAPSULE PO SCH (21:00)
[2020-03-24] MEDS: OLANZapine 10 MG RAPDIS TABLET PO SCH (21:00)
[2020-03-24] MEDS: MAG HYDROX/AL HYDROX/SIMETH ES 30 ML SUSPENSION UDCUP PO PRN (23:43)
[2020-03-25 04:09] VITALS: BP 126/83
[2020-03-25] MEDS: IBUPROFEN 400 MG TABLET PO PRN ×3 (06:19→22:07)
[2020-03-25 06:26] LABS: GLUCOMETER DEV NAME(LOC) BV3N.; GLUCOSE,POINT OF CARE 182 MG/DL (70-110)
[2020-03-25] MEDS: LEVOTHYROXINE SODIUM 125 MCG TABLET PO SCH (06:37)
[2020-03-25] MEDS: MetFORMIN HCL 500 MG TABLET PO SCH ×2 (06:37→16:27)
[2020-03-25] MEDS: GlipiZIDE 10 MG TABLET PO SCH (06:37)
[2020-03-25] MEDS: INSULIN LISPRO 100 UNITS/ML SQ PRN ×4 (06:49→21:38)
[2020-03-25 08:27] VITALS: BP 135/65
[2020-03-25] MEDS: METOPROLOL SUCCINATE 25 MG ER TABLET PO SCH (08:37)
[2020-03-25] MEDS: LISINOPRIL 5 MG TABLET PO SCH (08:38)
[2020-03-25] MEDS: INSULIN GLARGINE,HUM.REC.ANLOG 100 UNITS/ML SQ SCH ×2 (08:43→21:38)
[2020-03-25] MEDS: NALTREXONE HCL 50 MG TABLET PO SCH (08:44)
[2020-03-25] MEDS: SODIUM CHLORIDE 1 GM TABLET PO SCH ×2 (08:44→16:27)
[2020-03-25] MEDS: LORazepam 2 MG TABLET PO PRN ×2 (09:11→16:27)
[2020-03-25 11:57] LABS: GLUCOMETER DEV NAME(LOC) BV3N.; GLUCOSE,POINT OF CARE 237 MG/DL (70-110)
[2020-03-25 16:17] VITALS: BP 131/65
[2020-03-25 16:35] LABS: GLUCOMETER DEV NAME(LOC) BV3N.; GLUCOSE,POINT OF CARE 222 MG/DL (70-110)
[2020-03-25 20:33] LABS: GLUCOMETER DEV NAME(LOC) BV3N.; GLUCOSE,POINT OF CARE 176 MG/DL (70-110)
[2020-03-25] MEDS: LITHIUM CARBONATE 300 MG CAPSULE PO SCH (20:40)
[2020-03-25] MEDS: OLANZapine 10 MG RAPDIS TABLET PO SCH (20:40)
[2020-03-25] MEDS: DIVALPROEX SODIUM 500 MG ER TABLET PO SCH (20:40)
[2020-03-26 03:18] VITALS: BP 128/67
[2020-03-26 06:23] LABS: GLUCOMETER DEV NAME(LOC) BV3N.; GLUCOSE,POINT OF CARE 113 MG/DL (70-110)
[2020-03-26] MEDS: MetFORMIN HCL 500 MG TABLET PO SCH ×2 (06:52→16:19)
[2020-03-26] MEDS: LEVOTHYROXINE SODIUM 125 MCG TABLET PO SCH (06:52)
[2020-03-26] MEDS: GlipiZIDE 10 MG TABLET PO SCH (06:52)
[2020-03-26 07:58] LABS: LITHIUM 0.81 mmol/L (0.60-1.20)
[2020-03-26] MEDS: LISINOPRIL 5 MG TABLET PO SCH (08:13)
[2020-03-26] MEDS: LORazepam 2 MG TABLET PO PRN ×2 (08:13→14:19)
[2020-03-26] MEDS: METOPROLOL SUCCINATE 25 MG ER TABLET PO SCH (08:13)
[2020-03-26] MEDS: NALTREXONE HCL 50 MG TABLET PO SCH ×3 (08:13→09:28)
[2020-03-26] MEDS: SODIUM CHLORIDE 1 GM TABLET PO SCH ×2 (08:13→09:00)
[2020-03-26 08:24] VITALS: BP 112/61
[2020-03-26] MEDS: INSULIN GLARGINE,HUM.REC.ANLOG 100 UNITS/ML SQ SCH ×2 (09:11→20:42)
[2020-03-26 09:15] LABS: GLUCOMETER DEV NAME(LOC) BV3N.; GLUCOSE,POINT OF CARE 139 MG/DL (70-110)
[2020-03-26 12:40] VITALS: BP 118/54
[2020-03-26] MEDS: IBUPROFEN 400 MG TABLET PO PRN (12:40)
[2020-03-26 16:33] VITALS: BP 139/62
[2020-03-26 16:33] LABS: GLUCOMETER DEV NAME(LOC) BV3N.; GLUCOSE,POINT OF CARE 130 MG/DL (70-110)
[2020-03-26 20:31] LABS: GLUCOMETER DEV NAME(LOC) BV3N.; GLUCOSE,POINT OF CARE 144 MG/DL (70-110)
[2020-03-26] MEDS: DIVALPROEX SODIUM 500 MG ER TABLET PO SCH (20:39)
[2020-03-26] MEDS: OLANZapine 10 MG RAPDIS TABLET PO SCH (20:39)
[2020-03-26] MEDS: LITHIUM CARBONATE 300 MG CAPSULE PO SCH (20:39)
[2020-03-27 03:04] VITALS: BP 129/68
[2020-03-27] MEDS: IBUPROFEN 400 MG TABLET PO PRN ×2 (05:50→23:49)
[2020-03-27] MEDS: INSULIN LISPRO 100 UNITS/ML SQ PRN ×4 (06:19→21:01)
[2020-03-27 06:24] LABS: GLUCOMETER DEV NAME(LOC) BV3N.; GLUCOSE,POINT OF CARE 150 MG/DL (70-110)
[2020-03-27] MEDS: GlipiZIDE 10 MG TABLET PO SCH (06:41)
[2020-03-27] MEDS: LEVOTHYROXINE SODIUM 125 MCG TABLET PO SCH (06:42)
[2020-03-27] MEDS: MetFORMIN HCL 500 MG TABLET PO SCH ×2 (06:42→16:52)
[2020-03-27] MEDS: LISINOPRIL 5 MG TABLET PO SCH (08:13)
[2020-03-27] MEDS: METOPROLOL SUCCINATE 25 MG ER TABLET PO SCH (08:13)
[2020-03-27] MEDS: INSULIN GLARGINE,HUM.REC.ANLOG 100 UNITS/ML SQ SCH ×2 (08:16→21:01)
[2020-03-27 08:21] VITALS: BP 130/71
[2020-03-27 08:21] LABS: GLUCOMETER DEV NAME(LOC) BV3N.; GLUCOSE,POINT OF CARE 179 MG/DL (70-110)
[2020-03-27] MEDS: SODIUM CHLORIDE 1 GM TABLET PO SCH ×2 (08:21→16:52)
[2020-03-27 11:05] LABS: GLUCOMETER DEV NAME(LOC) BV3N.; GLUCOSE,POINT OF CARE 205 MG/DL (70-110)
[2020-03-27] MEDS: ACETAMINOPHEN 325 MG TABLET PO PRN (11:05)
[2020-03-27 16:23] VITALS: BP 127/65
[2020-03-27 16:29] LABS: GLUCOMETER DEV NAME(LOC) BV3N.; GLUCOSE,POINT OF CARE 167 MG/DL (70-110)
[2020-03-27] MEDS: OLANZapine 10 MG RAPDIS TABLET PO SCH (20:54)
[2020-03-27] MEDS: DIVALPROEX SODIUM 500 MG ER TABLET PO SCH (20:54)
[2020-03-27] MEDS: LITHIUM CARBONATE 300 MG CAPSULE PO SCH (20:54)
[2020-03-27 20:57] LABS: GLUCOMETER DEV NAME(LOC) BV3N.; GLUCOSE,POINT OF CARE 183 MG/DL (70-110)
[2020-03-27 23:48] VITALS: BP 105/70
[2020-03-27] MEDS: MAG HYDROX/AL HYDROX/SIMETH ES 30 ML SUSPENSION UDCUP PO PRN (23:49)
[2020-03-28 01:41] VITALS: BP 108/69
[2020-03-28 06:07] LABS: GLUCOMETER DEV NAME(LOC) BV3N.; GLUCOSE,POINT OF CARE 167 MG/DL (70-110)
[2020-03-28] MEDS: GlipiZIDE 10 MG TABLET PO SCH (06:20)
[2020-03-28] MEDS: LEVOTHYROXINE SODIUM 125 MCG TABLET PO SCH (06:20)
[2020-03-28] MEDS: MetFORMIN HCL 500 MG TABLET PO SCH ×2 (06:20→16:04)
[2020-03-28] MEDS: INSULIN LISPRO 100 UNITS/ML SQ PRN ×4 (06:24→20:23)
[2020-03-28 08:11] VITALS: BP 128/55
[2020-03-28] MEDS: LISINOPRIL 5 MG TABLET PO SCH (08:59)
[2020-03-28] MEDS: METOPROLOL SUCCINATE 25 MG ER TABLET PO SCH (08:59)
[2020-03-28] MEDS: NALTREXONE HCL 50 MG TABLET PO SCH (09:00)
[2020-03-28] MEDS: SODIUM CHLORIDE 1 GM TABLET PO SCH ×2 (09:00→16:15)
[2020-03-28] MEDS: INSULIN GLARGINE,HUM.REC.ANLOG 100 UNITS/ML SQ SCH ×2 (09:17→20:22)
[2020-03-28 11:22] LABS: GLUCOMETER DEV NAME(LOC) BV3N.; GLUCOSE,POINT OF CARE 168 MG/DL (70-110)
[2020-03-28] MEDS: IBUPROFEN 400 MG TABLET PO PRN ×2 (16:16→23:47)
[2020-03-28 16:23] LABS: GLUCOMETER DEV NAME(LOC) BV3N.; GLUCOSE,POINT OF CARE 258 MG/DL (70-110)
[2020-03-28 17:21] VITALS: BP 117/70
[2020-03-28 20:22] LABS: GLUCOMETER DEV NAME(LOC) BV3N.; GLUCOSE,POINT OF CARE 176 MG/DL (70-110)
[2020-03-28] MEDS: DIVALPROEX SODIUM 500 MG ER TABLET PO SCH (20:25)
[2020-03-29] MEDS: LORazepam 2 MG TABLET PO PRN ×2 (01:59→20:30)
[2020-03-29 04:30] VITALS: BP 102/68
[2020-03-29 06:14] LABS: GLUCOMETER DEV NAME(LOC) BV3N.; GLUCOSE,POINT OF CARE 169 MG/DL (70-110)
[2020-03-29] MEDS: MetFORMIN HCL 500 MG TABLET PO SCH ×2 (06:38→16:00)
[2020-03-29] MEDS: GlipiZIDE 10 MG TABLET PO SCH (06:38)
[2020-03-29] MEDS: LEVOTHYROXINE SODIUM 125 MCG TABLET PO SCH (06:39)
[2020-03-29] MEDS: INSULIN LISPRO 100 UNITS/ML SQ PRN ×4 (06:40→20:37)
[2020-03-29 08:22] VITALS: BP 105/60
[2020-03-29] MEDS: LITHIUM CARBONATE 300 MG CAPSULE PO SCH (09:00)
[2020-03-29] MEDS: NALTREXONE HCL 50 MG TABLET PO SCH (09:00)
[2020-03-29] MEDS: SODIUM CHLORIDE 1 GM TABLET PO SCH ×2 (09:00→17:00)
[2020-03-29] MEDS: OLANZapine 10 MG RAPDIS TABLET PO SCH (09:00)
[2020-03-29] MEDS: LISINOPRIL 5 MG TABLET PO SCH (09:15)
[2020-03-29] MEDS: METOPROLOL SUCCINATE 25 MG ER TABLET PO SCH (09:15)
[2020-03-29] MEDS: INSULIN GLARGINE,HUM.REC.ANLOG 100 UNITS/ML SQ SCH ×2 (09:22→20:36)
[2020-03-29 11:13] LABS: GLUCOMETER DEV NAME(LOC) BV3N.; GLUCOSE,POINT OF CARE 161 MG/DL (70-110)
[2020-03-29 16:14] VITALS: BP 131/61
[2020-03-29 16:17] LABS: GLUCOMETER DEV NAME(LOC) BV3N.; GLUCOSE,POINT OF CARE 185 MG/DL (70-110)
[2020-03-29 20:34] LABS: GLUCOMETER DEV NAME(LOC) BV3N.; GLUCOSE,POINT OF CARE 152 MG/DL (70-110)
[2020-03-29] MEDS: DIVALPROEX SODIUM 500 MG ER TABLET PO SCH (21:00)
[2020-03-30 01:12] VITALS: BP 126/53
[2020-03-30] MEDS: IBUPROFEN 400 MG TABLET PO PRN ×3 (03:11→16:29)
[2020-03-30 06:11] LABS: GLUCOMETER DEV NAME(LOC) BV3N.; GLUCOSE,POINT OF CARE 172 MG/DL (70-110)
[2020-03-30] MEDS: MetFORMIN HCL 500 MG TABLET PO SCH ×2 (06:22→16:20)
[2020-03-30] MEDS: GlipiZIDE 10 MG TABLET PO SCH (06:22)
[2020-03-30] MEDS: LEVOTHYROXINE SODIUM 125 MCG TABLET PO SCH (06:22)
[2020-03-30] MEDS: INSULIN LISPRO 100 UNITS/ML SQ PRN ×4 (06:26→21:12)
[2020-03-30 08:18] VITALS: BP 130/65
[2020-03-30] MEDS: OLANZapine 10 MG RAPDIS TABLET PO SCH (09:00)
[2020-03-30] MEDS: SODIUM CHLORIDE 1 GM TABLET PO SCH ×2 (09:00→17:00)
[2020-03-30] MEDS: LITHIUM CARBONATE 300 MG CAPSULE PO SCH (09:00)
[2020-03-30] MEDS: NALTREXONE HCL 50 MG TABLET PO SCH (09:00)
[2020-03-30] MEDS: LISINOPRIL 5 MG TABLET PO SCH (09:01)
[2020-03-30] MEDS: METOPROLOL SUCCINATE 25 MG ER TABLET PO SCH (09:01)
[2020-03-30] MEDS: INSULIN GLARGINE,HUM.REC.ANLOG 100 UNITS/ML SQ SCH ×2 (09:10→21:13)
[2020-03-30 11:54] LABS: GLUCOMETER DEV NAME(LOC) BV3N.; GLUCOSE,POINT OF CARE 180 MG/DL (70-110)
[2020-03-30 16:06] VITALS: BP 148/95
[2020-03-30 16:25] VITALS: BP 143/80
[2020-03-30 16:38] LABS: GLUCOMETER DEV NAME(LOC) BV3N.; GLUCOSE,POINT OF CARE 188 MG/DL (70-110)
[2020-03-30] MEDS: MAG HYDROX/AL HYDROX/SIMETH ES 30 ML SUSPENSION UDCUP PO PRN (19:14)
[2020-03-30 20:31] LABS: GLUCOMETER DEV NAME(LOC) BV3N.; GLUCOSE,POINT OF CARE 193 MG/DL (70-110)
[2020-03-30] MEDS: DIVALPROEX SODIUM 500 MG ER TABLET PO SCH (21:00)
[2020-03-31 02:38] VITALS: BP 132/78
[2020-03-31 03:46] VITALS: BP 129/79
[2020-03-31 05:57] LABS: GLUCOMETER DEV NAME(LOC) BV3N.; GLUCOSE,POINT OF CARE 195 MG/DL (70-110)
[2020-03-31] MEDS: GlipiZIDE 10 MG TABLET PO SCH (06:28)
[2020-03-31] MEDS: LEVOTHYROXINE SODIUM 125 MCG TABLET PO SCH (06:28)
[2020-03-31] MEDS: MetFORMIN HCL 500 MG TABLET PO SCH (06:28)
[2020-03-31] MEDS: INSULIN LISPRO 100 UNITS/ML SQ PRN ×2 (06:32→11:48)
[2020-03-31 08:06] VITALS: BP 133/61
[2020-03-31] MEDS: LISINOPRIL 5 MG TABLET PO SCH (08:26)
[2020-03-31] MEDS: NALTREXONE HCL 50 MG TABLET PO SCH (09:20)
[2020-03-31] MEDS: LITHIUM CARBONATE 300 MG CAPSULE PO SCH (09:20)
[2020-03-31] MEDS: SODIUM CHLORIDE 1 GM TABLET PO SCH (09:20)
[2020-03-31] MEDS: OLANZapine 10 MG RAPDIS TABLET PO SCH (09:21)
[2020-03-31] MEDS: METOPROLOL SUCCINATE 25 MG ER TABLET PO SCH (09:21)
[2020-03-31] MEDS: INSULIN GLARGINE,HUM.REC.ANLOG 100 UNITS/ML SQ SCH (09:26)
[2020-03-31 09:38] LABS: GLUCOMETER DEV NAME(LOC) BV3N.; GLUCOSE,POINT OF CARE 237 MG/DL (70-110)
[2020-03-31 11:12] LABS: GLUCOMETER DEV NAME(LOC) BV3N.; GLUCOSE,POINT OF CARE 232 MG/DL (70-110)
== END 2020-03-31 13:24 | disposition home or self-care (01) | DRG 750 ==
LOC: EMS 12:31 → B3A 16:16
PROVIDERS: ADMIT Psychiatry & Neurology Psychiatry; ATTEND Psychiatry & Neurology Psychiatry
DX: F25.9 Schizoaffective disorder, unspecified (principal); E11.65 Type 2 diabetes mellitus with hyperglycemia; R45.851 Suicidal ideations; E66.01 Morbid (severe) obesity due to excess calories; E03.9 Hypothyroidism, unspecified; Z90.710 Acquired absence of both cervix and uterus; E78.5 Hyperlipidemia, unspecified; F17.210 Nicotine dependence, cigarettes, uncomplicated; I10 Essential (primary) hypertension; M19.90 Unspecified osteoarthritis, unspecified site; Z53.20 Procedure and treatment not carried out because of patient's decision for unspecified reasons; Z91.19 Patient's noncompliance with other medical treatment and regimen; Z68.39 Body mass index [BMI] 39.0-39.9, adult; F41.9 Anxiety disorder, unspecified; R00.0 Tachycardia, unspecified; K21.9 Gastro-esophageal reflux disease without esophagitis; E87.1 Hypo-osmolality and hyponatremia
CPT/HCPCS: 83036; 83540; 83550; 83735; 84100; 84132; 84295; 85007; 87081; G0480; J1200; J1630; J1815; J2060

== ENCOUNTER 2020-03-20 17:49 | Emergency (ER) | payer MEDICAID, OTHER ==
[~2020-03-20] VITALS: Ht 160 cm; Wt 102.3 kg
[~2020-03-20 17:49] MED LIST changes: -DIPH50 PO; +DIVA500T52 PO; +LISI-660 PO; -LISI-661 PO; +NALT50TA PO; +PALI117D IM; -ZIPR80CA2 PO
[2020-03-20] MEDS ORDERED: LITH450CRT PO (18:13)
[2020-03-20 20:49] VITALS: BP 172/94
== END 2020-03-20 21:30 | disposition home or self-care (01) ==
LOC: EMS 17:51
DX: S00.93XA Contusion of unspecified part of head, initial encounter (principal); M54.2 Cervicalgia; F31.9 Bipolar disorder, unspecified; E03.9 Hypothyroidism, unspecified; E11.9 Type 2 diabetes mellitus without complications; F41.9 Anxiety disorder, unspecified; Z79.4 Long term (current) use of insulin; Z79.84 Long term (current) use of oral hypoglycemic drugs; Z79.899 Other long term (current) drug therapy; Z88.0 Allergy status to penicillin; Z88.8 Allergy status to other drugs, medicaments and biological substances; W19.XXXA Unspecified fall, initial encounter; Y93.89 Activity, other specified; Y92.89 Other specified places as the place of occurrence of the external cause; Y99.8 Other external cause status
CPT/HCPCS: 70450; 72125

== ENCOUNTER 2020-04-10 16:28 | Inpatient (IN) | payer MEDICAID, OTHER ==
[~2020-04-10] VITALS: Ht 160 cm; Wt 102.1 kg
[~2020-04-10 16:28] MED LIST changes: +LITH450CRT PO
[2020-04-10] MEDS ORDERED: INSULIN REGULAR, HUMAN 100 UNITS/ML IVP ONE (17:00)
[2020-04-10] MEDS ORDERED: SODIUM CHLORIDE 0.9% 1,000 ML IV ONE (17:00)
[2020-04-10 17:15] LABS: BASOPHILS % (AUTO) 0.8 % (0.0-2.0); EOSINOPHILS % (AUTO) 0.2 % (1.0-6.0); HEMOGLOBIN 11.4 g/dL (12.0-16.0); LYMPHOCYTES # (AUTO) 3.2 K/uL (1.0-4.8); MEAN CORPUSCULAR HEMOGLOBIN 29.2 pg (26.0-34.0); MEAN CORPUSCULAR HGB CONC 31.7 G/dL (31.0-37.0); MEAN CORPUSCULAR VOLUME 92 fL (80-100); MONOCYTES # (AUTO) 0.7 K/uL (0.1-1.0); MONOCYTES % (AUTO) 5.3 % (2.0-9.0); NEUTROPHILS # (AUTO) 9.3 K/uL (1.8-7.7); NEUTROPHILS % (AUTO) 69.7 % (40.0-70.0); PLATELET COUNT (AUTO) 427 K/uL (150-450); RED BLOOD CELL COUNT(AUTO) 3.91 MIL/uL (4.00-5.20)
[2020-04-10] MEDS ORDERED: LORazepam 2 MG/ML VIAL IVP ONE (17:30)
[2020-04-10 17:43] LABS: LITHIUM < 0.20 mmol/L (0.60-1.20)
[2020-04-10] MEDS ORDERED: LORazepam 2 MG/ML VIAL IM ONE (17:45)
[2020-04-10] MEDS ORDERED: DiphenhydrAMINE HCL 50 MG/ML VIAL IM ONE (17:45)
[2020-04-10] MEDS ORDERED: HALOPERIDOL LACTATE 5 MG/ML VIAL IM ONE (17:45)
[2020-04-10 17:46] LABS: ALANINE AMINOTRANSFERASE 27 U/L (12-78); ALBUMIN 3.9 g/dL (3.4-5.0); ALKALINE PHOSPHATASE 116 U/L (46-116); ANION GAP 11 mmol/L (8-16); ASPARTATE AMINOTRANSFERASE 25 U/L (15-37); BILIRUBIN,TOTAL 0.5 mg/dL (0.1-1.0); CALCIUM, TOTAL 8.9 mg/dL (8.8-10.5); CARBON DIOXIDE 24 mmol/L (22-29); CHLORIDE 91 mmol/L (98-107); CREATININE 1.28 mg/dL (0.60-1.30); GLOMERULAR FILTR. RATE CALC 42 mL/min (>60); POTASSIUM 4.6 mmol/L (3.5-5.1); SODIUM SERUM 126 mmol/L (136-145); TOTAL PROTEIN, SERUM 8.3 g/dL (6.4-8.2); UREA NITROGEN, BLOOD 19 mg/dL (7-18)
[2020-04-10 17:50] LABS: GLUCOSE,RANDOM 564 mg/dL (70-110)
[2020-04-10 18:01] LABS: VALPROIC ACID < 3 mcg/mL (50-100)
[2020-04-10 18:47] LABS: GLUCOSE,POINT OF CARE 310 MG/DL (70-110)
[2020-04-10 18:47] LABS: GLUCOSE,POINT OF CARE 550 MG/DL (70-110)
[2020-04-10 20:18] LABS: GLUCOSE,POINT OF CARE 325 MG/DL (70-110)
[2020-04-10 21:58] VITALS: BP 128/60
[2020-04-10] MEDS ORDERED: GLUCAGON,HUMAN RECOMBINANT 1 MG VIAL IM PRN (22:45)
[2020-04-10] MEDS: INSULIN LISPRO 100 UNITS/ML SQ PRN (22:53)
[2020-04-10] MEDS: INSULIN GLARGINE,HUM.REC.ANLOG 100 UNITS/ML SQ SCH (22:53)
[2020-04-11] MEDS: GlipiZIDE 10 MG TABLET PO SCH (06:38)
[2020-04-11] MEDS: MetFORMIN HCL 500 MG TABLET PO SCH ×2 (06:38→16:16)
[2020-04-11] MEDS: LEVOTHYROXINE SODIUM 125 MCG TABLET PO SCH (06:39)
[2020-04-11] MEDS: INSULIN LISPRO 100 UNITS/ML SQ PRN ×4 (06:44→21:20)
[2020-04-11 06:59] VITALS: BP 152/60
[2020-04-11] MEDS ORDERED: ONDANSETRON HCL 4 MG TABLET PO PRN (08:00)
[2020-04-11] MEDS ORDERED: CloNIDine HCL 0.1 MG TABLET PO PRN (08:00)
[2020-04-11] MEDS ORDERED: BENZOCAINE/MENTHOL LOZENGE MM PRN (08:00)
[2020-04-11] MEDS ORDERED: ALBUTEROL SULFATE HFA 90 MCG/PUFF 8 GM INHALER IH PRN (08:00)
[2020-04-11] MEDS ORDERED: MAGNESIUM HYDROXIDE SUSPENSION 30 ML UDCUP PO PRN (08:00)
[2020-04-11] MEDS ORDERED: PETROLATUM,WHITE 28 GM JELLY TP PRN (08:00)
[2020-04-11] MEDS ORDERED: BACITRACIN 28.4 GM OINTMENT TP PRN (08:00)
[2020-04-11] MEDS ORDERED: MAG HYDROX/AL HYDROX/SIMETH ES 30 ML SUSPENSION UDCUP PO PRN (08:00)
[2020-04-11 08:17] VITALS: BP 120/56
[2020-04-11] MEDS: OMEPRAZOLE 20 MG CAPSULE PO SCH (09:00)
[2020-04-11] MEDS: LISINOPRIL 5 MG TABLET PO SCH (09:00)
[2020-04-11] MEDS: INSULIN GLARGINE,HUM.REC.ANLOG 100 UNITS/ML SQ SCH ×2 (09:00→21:20)
[2020-04-11] MEDS: DOCUSATE SODIUM 100 MG CAPSULE PO SCH (09:00)
[2020-04-11] MEDS: METOPROLOL TARTRATE 25 MG TABLET PO SCH (09:00)
[2020-04-11 12:01] LABS: GLUCOMETER DEV NAME(LOC) BV3N.; GLUCOSE,POINT OF CARE 277 MG/DL (70-110)
[2020-04-11] MEDS ORDERED: PALIPERIDONE PALMITATE 234 MG/1.5 ML SYRINGE IM ONE (15:15)
[2020-04-11] MEDS: LORazepam 2 MG TABLET PO PRN ×2 (16:21→20:22)
[2020-04-11 16:32] LABS: GLUCOMETER DEV NAME(LOC) BV3N.; GLUCOSE,POINT OF CARE 376 MG/DL (70-110)
[2020-04-11 16:45] VITALS: BP 138/70
[2020-04-11] MEDS: OLANZapine 10 MG RAPDIS TABLET PO SCH (20:22)
[2020-04-11] MEDS: LITHIUM CARBONATE 300 MG CAPSULE PO SCH (20:22)
[2020-04-11] MEDS: DIVALPROEX SODIUM 500 MG ER TABLET PO SCH (20:23)
[2020-04-11 20:26] LABS: GLUCOMETER DEV NAME(LOC) BV3N.; GLUCOSE,POINT OF CARE 374 MG/DL (70-110)
[2020-04-12] VITALS (11 sets, daily range): BP systolic 98–134; BP diastolic 50–84
[2020-04-12] MEDS: ACETAMINOPHEN 325 MG TABLET PO PRN (05:57)
[2020-04-12] MEDS: MetFORMIN HCL 500 MG TABLET PO SCH ×2 (06:03→16:43)
[2020-04-12 06:08] LABS: GLUCOMETER DEV NAME(LOC) BV3N.; GLUCOSE,POINT OF CARE 124 MG/DL (70-110)
[2020-04-12] MEDS: LEVOTHYROXINE SODIUM 125 MCG TABLET PO SCH (06:28)
[2020-04-12] MEDS: GlipiZIDE 10 MG TABLET PO SCH (06:28)
[2020-04-12] MEDS: DOCUSATE SODIUM 100 MG CAPSULE PO SCH (09:00)
[2020-04-12] MEDS: OMEPRAZOLE 20 MG CAPSULE PO SCH (09:00)
[2020-04-12] MEDS: METOPROLOL TARTRATE 25 MG TABLET PO SCH (09:00)
[2020-04-12] MEDS: LISINOPRIL 5 MG TABLET PO SCH (09:00)
[2020-04-12] MEDS: INSULIN GLARGINE,HUM.REC.ANLOG 100 UNITS/ML SQ SCH ×2 (09:04→21:23)
[2020-04-12 11:21] LABS: GLUCOMETER DEV NAME(LOC) BV3N.; GLUCOSE,POINT OF CARE 341 MG/DL (70-110)
[2020-04-12] MEDS: INSULIN LISPRO 100 UNITS/ML SQ PRN ×3 (12:06→21:23)
[2020-04-12 16:40] LABS: GLUCOMETER DEV NAME(LOC) BV3N.; GLUCOSE,POINT OF CARE 312 MG/DL (70-110)
[2020-04-12] MEDS: HALOPERIDOL 5 MG TABLET PO PRN (17:38)
[2020-04-12] MEDS: DIVALPROEX SODIUM 500 MG ER TABLET PO SCH (21:00)
[2020-04-12] MEDS: LITHIUM CARBONATE 300 MG CAPSULE PO SCH (21:15)
[2020-04-12] MEDS: OLANZapine 10 MG RAPDIS TABLET PO SCH (21:15)
[2020-04-12 23:17] LABS: GLUCOMETER DEV NAME(LOC) BV3N.; GLUCOSE,POINT OF CARE 199 MG/DL (70-110)
[2020-04-13 01:12] VITALS: BP 100/58
[2020-04-13 01:30] VITALS: BP 105/62
[2020-04-13] MEDS: ACETAMINOPHEN 325 MG TABLET PO PRN (03:02)
[2020-04-13] MEDS: LEVOTHYROXINE SODIUM 125 MCG TABLET PO SCH (06:32)
[2020-04-13] MEDS: GlipiZIDE 10 MG TABLET PO SCH (06:32)
[2020-04-13] MEDS: MetFORMIN HCL 500 MG TABLET PO SCH ×2 (06:32→16:05)
[2020-04-13 08:17] VITALS: BP 134/84
[2020-04-13] MEDS: IBUPROFEN 600 MG TABLET PO PRN (08:22)
[2020-04-13] MEDS: METOPROLOL TARTRATE 25 MG TABLET PO SCH (08:22)
[2020-04-13] MEDS: LISINOPRIL 5 MG TABLET PO SCH (08:22)
[2020-04-13] MEDS: OMEPRAZOLE 20 MG CAPSULE PO SCH (08:29)
[2020-04-13] MEDS: DOCUSATE SODIUM 100 MG CAPSULE PO SCH (08:29)
[2020-04-13 08:34] LABS: BASOPHILS % (AUTO) 0.8 % (0.0-2.0); EOSINOPHILS % (AUTO) 0 % (1.0-6.0); HEMATOCRIT 35.6 % (36-46); HEMOGLOBIN 11.5 g/dL (12.0-16.0); LYMPHOCYTES % (AUTO) 22.5 % (22.0-44.0); MEAN CORPUSCULAR HEMOGLOBIN 29.9 pg (26.0-34.0); MEAN CORPUSCULAR HGB CONC 32.4 G/dL (31.0-37.0); MEAN CORPUSCULAR VOLUME 92 fL (80-100); MONOCYTES # (AUTO) 0.5 K/uL (0.1-1.0); MONOCYTES % (AUTO) 5.2 % (2.0-9.0); NEUTROPHILS # (AUTO) 6.3 K/uL (1.8-7.7); NEUTROPHILS % (AUTO) 71.5 % (40.0-70.0); PLATELET COUNT (AUTO) 392 K/uL (150-450); RED BLOOD CELL COUNT(AUTO) 3.86 MIL/uL (4.00-5.20)
[2020-04-13] MEDS: LORazepam 2 MG TABLET PO PRN (08:44)
[2020-04-13] MEDS: INSULIN GLARGINE,HUM.REC.ANLOG 100 UNITS/ML SQ SCH ×2 (09:16→20:16)
[2020-04-13 10:00] VITALS: BP 134/84
[2020-04-13] MEDS: INSULIN LISPRO 100 UNITS/ML SQ PRN ×2 (11:46→20:16)
[2020-04-13 12:37] LABS: GLUCOMETER DEV NAME(LOC) BV3N.; GLUCOSE,POINT OF CARE 219 MG/DL (70-110)
[2020-04-13] MEDS: LOPERAMIDE HCL 2 MG CAPSULE PO PRN (13:07)
[2020-04-13 16:04] VITALS: BP 109/63
[2020-04-13] MEDS: CarBAMazepine 200 MG TABLET PO SCH (16:05)
[2020-04-13] MEDS: HALOPERIDOL 5 MG TABLET PO PRN (16:06)
[2020-04-13 16:31] LABS: GLUCOMETER DEV NAME(LOC) BV3N.; GLUCOSE,POINT OF CARE 118 MG/DL (70-110)
[2020-04-13] MEDS: LITHIUM CARBONATE 300 MG CAPSULE PO SCH (20:02)
[2020-04-13] MEDS: OLANZapine 10 MG RAPDIS TABLET PO SCH (20:03)
[2020-04-13 20:08] LABS: GLUCOMETER DEV NAME(LOC) BV3N.; GLUCOSE,POINT OF CARE 202 MG/DL (70-110)
[2020-04-13] MEDS: DIVALPROEX SODIUM 500 MG ER TABLET PO SCH (20:24)
[2020-04-14] MEDS: ZOLPIDEM TARTRATE 10 MG TABLET PO PRN (00:38)
[2020-04-14 01:58] VITALS: BP 100/58
[2020-04-14 04:00] VITALS: BP 118/68
[2020-04-14] MEDS: LEVOTHYROXINE SODIUM 125 MCG TABLET PO SCH (06:29)
[2020-04-14] MEDS: MetFORMIN HCL 500 MG TABLET PO SCH ×2 (06:29→16:16)
[2020-04-14] MEDS: GlipiZIDE 10 MG TABLET PO SCH (06:29)
[2020-04-14 06:48] LABS: GLUCOMETER DEV NAME(LOC) BV3N.; GLUCOSE,POINT OF CARE 122 MG/DL (70-110)
[2020-04-14 08:21] LABS: ALBUMIN 3.7 g/dL (3.4-5.0); BILIRUBIN,TOTAL 0.5 mg/dL (0.1-1.0); CALCIUM, TOTAL 9.5 mg/dL (8.8-10.5); CHOL/HDL RATIO 5.1 (3.9-5.7); CREATININE 1.46 mg/dL (0.60-1.30); FREE T4 (FREE THYROXINE) 1.13 ng/dL (0.76-1.46); POTASSIUM 4.1 mmol/L (3.5-5.1); THYROID STIMULATING HORMONE 13.45 uIU/mL (0.36-3.74); TOTAL PROTEIN, SERUM 8.1 g/dL (6.4-8.2)
[2020-04-14 09:27] VITALS: BP 114/55
[2020-04-14] MEDS: DOCUSATE SODIUM 100 MG CAPSULE PO SCH (09:27)
[2020-04-14] MEDS: CarBAMazepine 200 MG TABLET PO SCH ×3 (09:27→16:16)
[2020-04-14] MEDS: OMEPRAZOLE 20 MG CAPSULE PO SCH (09:27)
[2020-04-14] MEDS: LISINOPRIL 5 MG TABLET PO SCH (09:27)
[2020-04-14] MEDS: IBUPROFEN 600 MG TABLET PO PRN ×2 (09:27→17:43)
[2020-04-14] MEDS: METOPROLOL TARTRATE 25 MG TABLET PO SCH (09:27)
[2020-04-14] MEDS: INSULIN GLARGINE,HUM.REC.ANLOG 100 UNITS/ML SQ SCH ×2 (09:33→20:48)
[2020-04-14 11:15] VITALS: BP 114/55
[2020-04-14] MEDS: INSULIN LISPRO 100 UNITS/ML SQ PRN ×2 (11:56→17:12)
[2020-04-14 12:09] LABS: GLUCOMETER DEV NAME(LOC) BV3N.; GLUCOSE,POINT OF CARE 168 MG/DL (70-110)
[2020-04-14 16:08] VITALS: BP 123/6
[2020-04-14 16:19] LABS: GLUCOMETER DEV NAME(LOC) BV3N.; GLUCOSE,POINT OF CARE 173 MG/DL (70-110)
[2020-04-14] MEDS: LITHIUM CARBONATE 300 MG CAPSULE PO SCH (20:31)
[2020-04-14] MEDS: HALOPERIDOL 10 MG TABLET PO SCH (20:31)
[2020-04-14] MEDS: VALPROIC ACID 250 MG/5 ML SYRUP UDCUP PO SCH (20:31)
[2020-04-14 21:05] LABS: GLUCOMETER DEV NAME(LOC) BV3N.; GLUCOSE,POINT OF CARE 107 MG/DL (70-110)
[2020-04-15 04:48] VITALS: BP 130/67
[2020-04-15] MEDS: LEVOTHYROXINE SODIUM 125 MCG TABLET PO SCH (06:44)
[2020-04-15] MEDS: GlipiZIDE 10 MG TABLET PO SCH (06:44)
[2020-04-15] MEDS: MetFORMIN HCL 500 MG TABLET PO SCH ×2 (06:45→17:00)
[2020-04-15 06:48] LABS: GLUCOMETER DEV NAME(LOC) BV3S.; GLUCOSE,POINT OF CARE 96 MG/DL (70-110)
[2020-04-15 08:00] VITALS: BP 98/40
[2020-04-15 08:17] LABS: GLUCOMETER DEV NAME(LOC) BV3S.; GLUCOSE,POINT OF CARE 187 MG/DL (70-110)
[2020-04-15 09:00] VITALS: BP 117/48
[2020-04-15] MEDS: OMEPRAZOLE 20 MG CAPSULE PO SCH (09:24)
[2020-04-15] MEDS: CarBAMazepine 200 MG TABLET PO SCH ×3 (09:24→17:00)
[2020-04-15] MEDS: METOPROLOL TARTRATE 25 MG TABLET PO SCH (09:24)
[2020-04-15] MEDS: DOCUSATE SODIUM 100 MG CAPSULE PO SCH (09:24)
[2020-04-15] MEDS: LISINOPRIL 5 MG TABLET PO SCH (09:24)
[2020-04-15] MEDS: INSULIN GLARGINE,HUM.REC.ANLOG 100 UNITS/ML SQ SCH ×2 (09:29→20:57)
[2020-04-15 10:15] VITALS: BP 59/31
[2020-04-15] MEDS: IBUPROFEN 600 MG TABLET PO PRN (10:24)
[2020-04-15 10:30] VITALS: BP 42/21
[2020-04-15 11:28] LABS: GLUCOMETER DEV NAME(LOC) BV3S.; GLUCOSE,POINT OF CARE 99 MG/DL (70-110)
[2020-04-15 18:20] VITALS: BP 117/60
[2020-04-15 18:51] LABS: GLUCOMETER DEV NAME(LOC) BV3S.; GLUCOSE,POINT OF CARE 113 MG/DL (70-110)
[2020-04-15 20:43] LABS: GLUCOMETER DEV NAME(LOC) BV3S.; GLUCOSE,POINT OF CARE 196 MG/DL (70-110)
[2020-04-15] MEDS: HALOPERIDOL 10 MG TABLET PO SCH (20:43)
[2020-04-15] MEDS: LITHIUM CARBONATE 300 MG CAPSULE PO SCH (20:43)
[2020-04-15] MEDS: VALPROIC ACID 250 MG/5 ML SYRUP UDCUP PO SCH (20:55)
[2020-04-15] MEDS: INSULIN LISPRO 100 UNITS/ML SQ PRN (21:11)
[2020-04-16 01:20] VITALS: BP 110/66
[2020-04-16] MEDS: GlipiZIDE 10 MG TABLET PO SCH (06:32)
[2020-04-16] MEDS: MetFORMIN HCL 500 MG TABLET PO SCH ×2 (06:32→16:16)
[2020-04-16] MEDS: LEVOTHYROXINE SODIUM 125 MCG TABLET PO SCH (06:32)
[2020-04-16 06:41] LABS: GLUCOMETER DEV NAME(LOC) BV3S.; GLUCOSE,POINT OF CARE 102 MG/DL (70-110)
[2020-04-16 08:18] VITALS: BP 100/55
[2020-04-16] MEDS: METOPROLOL TARTRATE 25 MG TABLET PO SCH (09:00)
[2020-04-16] MEDS: DOCUSATE SODIUM 100 MG CAPSULE PO SCH (09:00)
[2020-04-16] MEDS: INSULIN GLARGINE,HUM.REC.ANLOG 100 UNITS/ML SQ SCH ×2 (09:00→21:24)
[2020-04-16] MEDS: CarBAMazepine 200 MG TABLET PO SCH ×3 (09:00→16:16)
[2020-04-16] MEDS: OMEGA-3/DHA/EPA/FISH OIL 1,000 MG CAPSULE PO SCH (09:00)
[2020-04-16] MEDS: OMEPRAZOLE 20 MG CAPSULE PO SCH (09:00)
[2020-04-16] MEDS: LISINOPRIL 5 MG TABLET PO SCH (09:00)
[2020-04-16] MEDS: MULTIVITAMINS WITH IRON TABLET PO SCH (09:00)
[2020-04-16 11:47] LABS: GLUCOMETER DEV NAME(LOC) BV3S.; GLUCOSE,POINT OF CARE 99 MG/DL (70-110)
[2020-04-16 16:07] VITALS: BP 120/65
[2020-04-16 16:27] LABS: GLUCOMETER DEV NAME(LOC) BV3S.; GLUCOSE,POINT OF CARE 217 MG/DL (70-110)
[2020-04-16] MEDS: INSULIN LISPRO 100 UNITS/ML SQ PRN (17:05)
[2020-04-16] MEDS: VALPROIC ACID 250 MG/5 ML SYRUP UDCUP PO SCH (20:14)
[2020-04-16] MEDS: HALOPERIDOL 10 MG TABLET PO SCH (20:14)
[2020-04-16] MEDS: LITHIUM CARBONATE 300 MG CAPSULE PO SCH (20:27)
[2020-04-16 20:48] LABS: GLUCOMETER DEV NAME(LOC) BV3S.; GLUCOSE,POINT OF CARE 97 MG/DL (70-110)
[2020-04-17 01:38] VITALS: BP 115/65
[2020-04-17] MEDS: LEVOTHYROXINE SODIUM 125 MCG TABLET PO SCH (06:08)
[2020-04-17] MEDS: GlipiZIDE 10 MG TABLET PO SCH (06:08)
[2020-04-17 06:35] LABS: GLUCOMETER DEV NAME(LOC) BV3S.; GLUCOSE,POINT OF CARE 73 MG/DL (70-110)
[2020-04-17] MEDS: MetFORMIN HCL 500 MG TABLET PO SCH ×2 (06:35→16:53)
[2020-04-17] MEDS: IBUPROFEN 600 MG TABLET PO PRN (07:03)
[2020-04-17 08:19] VITALS: BP 113/59
[2020-04-17] MEDS: LISINOPRIL 5 MG TABLET PO SCH (09:10)
[2020-04-17] MEDS: MULTIVITAMINS WITH IRON TABLET PO SCH (09:10)
[2020-04-17] MEDS: METOPROLOL TARTRATE 25 MG TABLET PO SCH (09:11)
[2020-04-17] MEDS: DOCUSATE SODIUM 100 MG CAPSULE PO SCH (09:11)
[2020-04-17] MEDS: CarBAMazepine 200 MG TABLET PO SCH ×3 (09:11→16:53)
[2020-04-17] MEDS: OMEGA-3/DHA/EPA/FISH OIL 1,000 MG CAPSULE PO SCH (09:11)
[2020-04-17] MEDS: OMEPRAZOLE 20 MG CAPSULE PO SCH (09:11)
[2020-04-17] MEDS: INSULIN GLARGINE,HUM.REC.ANLOG 100 UNITS/ML SQ SCH ×2 (09:19→20:10)
[2020-04-17 09:39] LABS: GLUCOMETER DEV NAME(LOC) BV3S.; GLUCOSE,POINT OF CARE 121 MG/DL (70-110)
[2020-04-17 11:12] LABS: GLUCOMETER DEV NAME(LOC) BV3S.; GLUCOSE,POINT OF CARE 87 MG/DL (70-110)
[2020-04-17] MEDS: INSULIN LISPRO 100 UNITS/ML SQ PRN (16:52)
[2020-04-17] MEDS: LORazepam 2 MG TABLET PO PRN (16:52)
[2020-04-17] MEDS: HALOPERIDOL 5 MG TABLET PO PRN (16:52)
[2020-04-17 16:57] LABS: GLUCOMETER DEV NAME(LOC) BV3S.; GLUCOSE,POINT OF CARE 227 MG/DL (70-110)
[2020-04-17 20:09] LABS: GLUCOMETER DEV NAME(LOC) BV3S.; GLUCOSE,POINT OF CARE 133 MG/DL (70-110)
[2020-04-17 20:34] VITALS: BP 117/58
[2020-04-17] MEDS: ZOLPIDEM TARTRATE 10 MG TABLET PO PRN (20:50)
[2020-04-17] MEDS: LITHIUM CARBONATE 300 MG CAPSULE PO SCH (20:50)
[2020-04-17] MEDS: HALOPERIDOL 10 MG TABLET PO SCH (20:51)
[2020-04-17] MEDS: VALPROIC ACID 250 MG/5 ML SYRUP UDCUP PO SCH (20:51)
[2020-04-18 03:51] VITALS: BP 105/66
[2020-04-18 06:30] LABS: GLUCOMETER DEV NAME(LOC) BV3S.; GLUCOSE,POINT OF CARE 89 MG/DL (70-110)
[2020-04-18] MEDS: GlipiZIDE 10 MG TABLET PO SCH (06:35)
[2020-04-18] MEDS: MetFORMIN HCL 500 MG TABLET PO SCH ×2 (06:35→16:18)
[2020-04-18] MEDS: LEVOTHYROXINE SODIUM 125 MCG TABLET PO SCH (06:35)
[2020-04-18 08:42] VITALS: BP 105/55
[2020-04-18] MEDS: LISINOPRIL 5 MG TABLET PO SCH (09:00)
[2020-04-18] MEDS ORDERED: PALIPERIDONE PALMITATE 117 MG/0.75 ML SYRINGE IM SCH (09:00)
[2020-04-18] MEDS: METOPROLOL TARTRATE 25 MG TABLET PO SCH (09:00)
[2020-04-18] MEDS: INSULIN GLARGINE,HUM.REC.ANLOG 100 UNITS/ML SQ SCH ×2 (09:00→20:30)
[2020-04-18] MEDS: OMEGA-3/DHA/EPA/FISH OIL 1,000 MG CAPSULE PO SCH (09:13)
[2020-04-18] MEDS: CarBAMazepine 200 MG TABLET PO SCH ×3 (09:13→16:19)
[2020-04-18] MEDS: IBUPROFEN 600 MG TABLET PO PRN (09:13)
[2020-04-18] MEDS: MULTIVITAMINS WITH IRON TABLET PO SCH (09:13)
[2020-04-18] MEDS: OMEPRAZOLE 20 MG CAPSULE PO SCH (09:13)
[2020-04-18] MEDS: DOCUSATE SODIUM 100 MG CAPSULE PO SCH (09:13)
[2020-04-18 10:26] LABS: GLUCOMETER DEV NAME(LOC) BV3S.; GLUCOSE,POINT OF CARE 55 MG/DL (70-110)
[2020-04-18 11:54] LABS: GLUCOMETER DEV NAME(LOC) BV3S.; GLUCOSE,POINT OF CARE 59 MG/DL (70-110)
[2020-04-18] MEDS: LOPERAMIDE HCL 2 MG CAPSULE PO PRN (13:37)
[2020-04-18 13:42] LABS: GLUCOMETER DEV NAME(LOC) BV3S.; GLUCOSE,POINT OF CARE 66 MG/DL (70-110)
[2020-04-18 13:42] LABS: GLUCOMETER DEV NAME(LOC) BV3S.; GLUCOSE,POINT OF CARE 138 MG/DL (70-110)
[2020-04-18 15:53] VITALS: BP 128/73
[2020-04-18 16:03] VITALS: BP 128/73
[2020-04-18 16:16] LABS: GLUCOMETER DEV NAME(LOC) BV3S.; GLUCOSE,POINT OF CARE 181 MG/DL (70-110)
[2020-04-18] MEDS: HALOPERIDOL 5 MG TABLET PO PRN (16:19)
[2020-04-18] MEDS: LORazepam 2 MG TABLET PO PRN (16:19)
[2020-04-18] MEDS: INSULIN LISPRO 100 UNITS/ML SQ PRN (17:06)
[2020-04-18] MEDS: LITHIUM CARBONATE 300 MG CAPSULE PO SCH (20:06)
[2020-04-18] MEDS: HALOPERIDOL 10 MG TABLET PO SCH (20:07)
[2020-04-18] MEDS: VALPROIC ACID 250 MG/5 ML SYRUP UDCUP PO SCH (20:32)
[2020-04-18 20:45] LABS: GLUCOMETER DEV NAME(LOC) BV3S.; GLUCOSE,POINT OF CARE 105 MG/DL (70-110)
[2020-04-19 00:13] VITALS: BP 115/73
[2020-04-19] MEDS: IBUPROFEN 600 MG TABLET PO PRN (00:34)
[2020-04-19 06:21] LABS: GLUCOMETER DEV NAME(LOC) BV3S.; GLUCOSE,POINT OF CARE 78 MG/DL (70-110)
[2020-04-19] MEDS: MetFORMIN HCL 500 MG TABLET PO SCH ×2 (07:01→17:00)
[2020-04-19] MEDS: LEVOTHYROXINE SODIUM 125 MCG TABLET PO SCH (07:01)
[2020-04-19] MEDS: GlipiZIDE 10 MG TABLET PO SCH (07:01)
[2020-04-19 08:31] VITALS: BP 125/65
[2020-04-19] MEDS: INSULIN GLARGINE,HUM.REC.ANLOG 100 UNITS/ML SQ SCH ×2 (09:08→20:59)
[2020-04-19 09:15] LABS: GLUCOMETER DEV NAME(LOC) BV3S.; GLUCOSE,POINT OF CARE 111 MG/DL (70-110)
[2020-04-19] MEDS: OMEPRAZOLE 20 MG CAPSULE PO SCH (09:17)
[2020-04-19] MEDS: OMEGA-3/DHA/EPA/FISH OIL 1,000 MG CAPSULE PO SCH (09:17)
[2020-04-19] MEDS: MULTIVITAMINS WITH IRON TABLET PO SCH (09:17)
[2020-04-19] MEDS: DOCUSATE SODIUM 100 MG CAPSULE PO SCH (09:18)
[2020-04-19] MEDS: LISINOPRIL 5 MG TABLET PO SCH (09:18)
[2020-04-19] MEDS: METOPROLOL TARTRATE 25 MG TABLET PO SCH (09:18)
[2020-04-19] MEDS: CarBAMazepine 200 MG TABLET PO SCH ×3 (09:18→17:41)
[2020-04-19 11:08] LABS: GLUCOMETER DEV NAME(LOC) BV3S.; GLUCOSE,POINT OF CARE 66 MG/DL (70-110)
[2020-04-19 12:39] LABS: GLUCOMETER DEV NAME(LOC) BV3S.; GLUCOSE,POINT OF CARE 171 MG/DL (70-110)
[2020-04-19 16:16] VITALS: BP 112/70
[2020-04-19 18:04] LABS: GLUCOMETER DEV NAME(LOC) BV3S.; GLUCOSE,POINT OF CARE 99 MG/DL (70-110)
[2020-04-19] MEDS: LORazepam 2 MG TABLET PO PRN (18:06)
[2020-04-19] MEDS: LITHIUM CARBONATE 300 MG CAPSULE PO SCH (20:59)
[2020-04-19] MEDS: HALOPERIDOL 10 MG TABLET PO SCH (20:59)
[2020-04-19] MEDS: VALPROIC ACID 250 MG/5 ML SYRUP UDCUP PO SCH (21:00)
[2020-04-19 22:17] LABS: GLUCOMETER DEV NAME(LOC) BV3S.; GLUCOSE,POINT OF CARE 84 MG/DL (70-110)
[2020-04-20 05:51] VITALS: BP 128/58
[2020-04-20] MEDS: LEVOTHYROXINE SODIUM 125 MCG TABLET PO SCH (06:47)
[2020-04-20] MEDS: MetFORMIN HCL 500 MG TABLET PO SCH (06:47)
[2020-04-20] MEDS: GlipiZIDE 10 MG TABLET PO SCH (06:48)
[2020-04-20 06:51] LABS: GLUCOMETER DEV NAME(LOC) BV3S.; GLUCOSE,POINT OF CARE 76 MG/DL (70-110)
[2020-04-20 08:08] VITALS: BP 120/58
[2020-04-20] MEDS: INSULIN GLARGINE,HUM.REC.ANLOG 100 UNITS/ML SQ SCH ×2 (09:00→21:00)
[2020-04-20] MEDS: DOCUSATE SODIUM 100 MG CAPSULE PO SCH (09:00)
[2020-04-20] MEDS: LISINOPRIL 5 MG TABLET PO SCH (09:51)
[2020-04-20] MEDS: METOPROLOL TARTRATE 25 MG TABLET PO SCH (09:51)
[2020-04-20] MEDS: OMEPRAZOLE 20 MG CAPSULE PO SCH (09:51)
[2020-04-20] MEDS: OMEGA-3/DHA/EPA/FISH OIL 1,000 MG CAPSULE PO SCH (09:51)
[2020-04-20] MEDS: CarBAMazepine 200 MG TABLET PO SCH ×3 (09:51→16:04)
[2020-04-20] MEDS: MULTIVITAMINS WITH IRON TABLET PO SCH (09:51)
[2020-04-20 10:52] LABS: GLUCOMETER DEV NAME(LOC) BV3S.; GLUCOSE,POINT OF CARE 73 MG/DL (70-110)
[2020-04-20 12:22] LABS: GLUCOMETER DEV NAME(LOC) BV3S.; GLUCOSE,POINT OF CARE 76 MG/DL (70-110)
[2020-04-20 16:07] VITALS: BP 125/68
[2020-04-20 16:46] LABS: GLUCOMETER DEV NAME(LOC) BV3S.; GLUCOSE,POINT OF CARE 80 MG/DL (70-110)
[2020-04-20 20:56] LABS: GLUCOMETER DEV NAME(LOC) BV3S.; GLUCOSE,POINT OF CARE 87 MG/DL (70-110)
[2020-04-20] MEDS: VALPROIC ACID 250 MG/5 ML SYRUP UDCUP PO SCH (21:02)
[2020-04-20] MEDS: HALOPERIDOL 10 MG TABLET PO SCH (21:02)
[2020-04-20] MEDS: LITHIUM CARBONATE 300 MG CAPSULE PO SCH (21:02)
[2020-04-21 02:06] VITALS: BP 101/62
[2020-04-21 06:33] LABS: GLUCOMETER DEV NAME(LOC) BV3S.; GLUCOSE,POINT OF CARE 113 MG/DL (70-110)
[2020-04-21] MEDS: LEVOTHYROXINE SODIUM 125 MCG TABLET PO SCH (06:33)
[2020-04-21 08:00] VITALS: BP 85/46
[2020-04-21 08:30] VITALS: BP 83/39
[2020-04-21 08:45] VITALS: BP 90/40
[2020-04-21] MEDS: OMEGA-3/DHA/EPA/FISH OIL 1,000 MG CAPSULE PO SCH (09:00)
[2020-04-21] MEDS ORDERED: FLUoxetine HCL 20 MG CAPSULE PO SCH (09:00)
[2020-04-21] MEDS: OMEPRAZOLE 20 MG CAPSULE PO SCH (09:00)
[2020-04-21] MEDS: INSULIN GLARGINE,HUM.REC.ANLOG 100 UNITS/ML SQ SCH ×2 (09:00→21:00)
[2020-04-21] MEDS: METOPROLOL TARTRATE 25 MG TABLET PO SCH (09:00)
[2020-04-21] MEDS: DOCUSATE SODIUM 100 MG CAPSULE PO SCH (09:00)
[2020-04-21] MEDS: MULTIVITAMINS WITH IRON TABLET PO SCH (09:00)
[2020-04-21] MEDS: CarBAMazepine 200 MG TABLET PO SCH ×3 (09:00→17:00)
[2020-04-21] MEDS: LISINOPRIL 5 MG TABLET PO SCH (09:00)
[2020-04-21 09:38] LABS: GLUCOMETER DEV NAME(LOC) BV3S.; GLUCOSE,POINT OF CARE 163 MG/DL (70-110)
[2020-04-21] MEDS ORDERED: FLUO-191 PO (14:38)
[2020-04-21] MEDS ORDERED: LITH300C3 PO (14:38)
[2020-04-21] MEDS ORDERED: OMEG-135 PO (14:38)
[2020-04-21] MEDS ORDERED: CARB200T6 PO (14:38)
[2020-04-21] MEDS ORDERED: VALP250S23 PO (14:38)
[2020-04-21] MEDS ORDERED: HALO10 PO (14:38)
[2020-04-21] MEDS ORDERED: DOCU-275 PO (16:25)
[2020-04-21] MEDS ORDERED: METO25 PO (16:25)
[2020-04-21] MEDS ORDERED: OMEP20 PO (19:55)
[2020-04-21] MEDS ORDERED: MVITFE PO (19:57)
[2020-04-21] MEDS: LITHIUM CARBONATE 300 MG CAPSULE PO SCH (21:00)
[2020-04-21] MEDS: VALPROIC ACID 250 MG/5 ML SYRUP UDCUP PO SCH (21:00)
[2020-04-21] MEDS: HALOPERIDOL 10 MG TABLET PO SCH (21:00)
[2020-05-09] MEDS ORDERED: PALIPERIDONE PALMITATE 117 MG/0.75 ML SYRINGE IM SCH (09:00)
== END 2020-04-21 15:00 | disposition short-term general hospital (02) | DRG 753 ==
LOC: EMS 16:30 → B3A 18:51
PROVIDERS: ADMIT Psychiatry & Neurology Psychiatry; ATTEND Psychiatry & Neurology Psychiatry
DX: F31.64 Bipolar disorder, current episode mixed, severe, with psychotic features (principal); E11.65 Type 2 diabetes mellitus with hyperglycemia; E03.9 Hypothyroidism, unspecified; F23 Brief psychotic disorder; E66.01 Morbid (severe) obesity due to excess calories; F41.9 Anxiety disorder, unspecified; E78.5 Hyperlipidemia, unspecified; Z79.4 Long term (current) use of insulin; Z91.19 Patient's noncompliance with other medical treatment and regimen; Z90.710 Acquired absence of both cervix and uterus; Z68.39 Body mass index [BMI] 39.0-39.9, adult
CPT/HCPCS: 82948; 84439; 84443; 87081; G0480; J1200; J1630; J1815; J2060; J7030

== ENCOUNTER 2020-04-15 12:30 | Emergency (ER) | payer MEDICAID, OTHER ==
[~2020-04-15] VITALS: Ht 162.6 cm; Wt 118.2 kg
[~2020-04-15 12:30] MED LIST changes: +DIVA-80 PO; -DIVA500T52 PO
[2020-04-15] MEDS ORDERED: DEXTROSE 50%-WATER 25 GM/50 ML SYRINGE IVP ONE (13:30)
[2020-04-15] MEDS ORDERED: SODIUM CHLORIDE 0.9% 1,000 ML IV ONE (13:45)
[2020-04-15 14:16] LABS: BASOPHILS % (AUTO) 0.3 % (0.0-2.0); EOSINOPHILS % (AUTO) 0 % (1.0-6.0); HEMATOCRIT 32.9 % (36-46); HEMOGLOBIN 10.4 g/dL (12.0-16.0); LYMPHOCYTES % (AUTO) 20.3 % (22.0-44.0); MEAN CORPUSCULAR HEMOGLOBIN 29.3 pg (26.0-34.0); MEAN CORPUSCULAR HGB CONC 31.6 G/dL (31.0-37.0); MEAN CORPUSCULAR VOLUME 93 fL (80-100); MONOCYTES # (AUTO) 0.6 K/uL (0.1-1.0); MONOCYTES % (AUTO) 6.3 % (2.0-9.0); NEUTROPHILS # (AUTO) 7.1 K/uL (1.8-7.7); NEUTROPHILS % (AUTO) 73.1 % (40.0-70.0); PLATELET COUNT (AUTO) 356 K/uL (150-450); RED BLOOD CELL COUNT(AUTO) 3.54 MIL/uL (4.00-5.20)
[2020-04-15 14:26] LABS: CALCIUM, TOTAL 8.7 mg/dL (8.8-10.5); CREATININE 1.75 mg/dL (0.60-1.30); POTASSIUM 4.1 mmol/L (3.5-5.1)
[2020-04-15 14:26] LABS: GLUCOMETER DEV NAME(LOC) PVLAB.13
[2020-04-15 14:31] LABS: ALBUMIN 3.3 g/dL (3.4-5.0); BILIRUBIN,TOTAL 0.3 mg/dL (0.1-1.0); TOTAL PROTEIN, SERUM 7.2 g/dL (6.4-8.2)
[2020-04-15 15:47] LABS: GLUCOSE,POINT OF CARE 115 MG/DL (70-110)
[2020-04-15 16:12] LABS: GLUCOSE,POINT OF CARE 112 MG/DL (70-110)
[2020-04-15 17:46] VITALS: BP 112/53
== END 2020-04-15 16:15 | disposition home or self-care (01) ==
LOC: EMS 12:32
DX: Z03.818 Encounter for observation for suspected exposure to other biological agents ruled out (principal); E11.649 Type 2 diabetes mellitus with hypoglycemia without coma; R79.89 Other specified abnormal findings of blood chemistry; F41.9 Anxiety disorder, unspecified; F31.9 Bipolar disorder, unspecified; E03.9 Hypothyroidism, unspecified; Z88.0 Allergy status to penicillin; Z88.8 Allergy status to other drugs, medicaments and biological substances; Z79.899 Other long term (current) drug therapy; Z79.4 Long term (current) use of insulin; Z79.84 Long term (current) use of oral hypoglycemic drugs
CPT/HCPCS: 82948; 96361; 96374